=== PATIENT | male | born 1950 | race Caucasian/White ===

== ENCOUNTER → 2024-02-03 07:39 | Outpatient (REF) | payer MEDICARE, OTHER, SELFPAY ==
[2024-02-03 12:36] LABS: ALT (SGPT) 13 U/L (0-50); AST (SGOT) 16 U/L (17-59); Albumin 3.8 g/dl (3.5-5.0); Alkaline Phosphatase 70 U/L (38-126); Blood Urea Nitrogen 16 mg/dl (9-20); Calcium 9.2 mg/dl (8.4-10.2); Carbon Dioxide 34 mmol/L (22-30); Chloride 103 mmol/L (98-107); Glucose 106 mg/dl (70-99); HDL Cholesterol 56 mg/dl; LDL Cholesterol, Calculated 39 mg/dl; Potassium 4.3 mmol/L (3.5-5.1); Sodium 140 mmol/L (135-145); Total Bilirubin 0.9 mg/dl (0.2-1.3); Total Cholesterol 110 mg/dl (50-199); Total Protein 6.3 g/dl (6.3-8.2); Triglyceride 77 mg/dl (10-149); Very Low Density Lipoprotein 15 mg/dl (0-30); eGFR > 60.00
== END ==
LOC: HWLAB 07:39
PROVIDERS: ATTENDING PHYSICIAN Nuclear Medicine Nuclear Cardiology; FAMILY PHYSICIAN Family Medicine; REFERRING PHYSICIAN Internal Medicine Critical Care Medicine
DX: I25.10 Atherosclerotic heart disease of native coronary artery without angina pectoris (principal); E78.2 Mixed hyperlipidemia; R06.09 Other forms of dyspnea
CPT/HCPCS: 36415; 71046; 80053; 80061

== ENCOUNTER 2024-02-27 14:00 | Inpatient (IN) | payer MEDICARE, OTHER, SELFPAY ==
[2024-02-27] VITALS (36 sets, daily range): BP systolic 84–126; BP diastolic 55–108; BMI 31.3; BMI 30.7
--- NOTE | 2024-02-27 10:35 | ED.GENMED ---
History of Present Illness
General
Chief Complaint: Breathing Problem
Source: patient and spouse
Exam Limitations: none
Time Seen by Provider: 02/27/24 10:14
Nursing documentation reviewed up to this point in time: agreed with
Travel History
Have you had any contact with someone who has COVID-19?: No
Do you have any symptoms of coronavirus? Fever > 100 degrees, chills, cough, shortness of breath, sore throat, loss of taste or smell, muscle aches, or headache?: No
History of Present Illness
History of Present Illness:
73-year-old male presents emergency department complaining of shortness of breath and bilateral leg swelling. He has been short of breath for about a month. He has history of pneumonia, COPD, and just came from an echocardiogram.
Past History
Past History
ED Past Medical History: Asthma, COPD, MD and Other (Gastric ulcer, lower GI bleed, melanoma of the right eye, renal insufficiency, Diverticulitis with abscess)
ED Past Surgical History: Cardiac (Stent X1), Orthopedic and Other (Splenectomy)
Social History
Tobacco: Former smoker
Alcohol: Occasional
Drug: None
Personal:
Living: with family
Employment: Employed
Family History
Family History: Other (Noncontributory)
Review of Systems
Review of Systems
Allergies reviewed?: Yes
All Other Systems: Not applicable
Constitutional: Reports no symptoms
EENT: Reports no symptoms
Respiratory: Reports trouble breathing
Cardiac: Reports no symptoms
ABD/GI: Reports no symptoms
: Reports no symptoms
Musculoskeletal: Reports edema
Skin: Reports no symptoms
Neurological: Reports no symptoms
Endocrine: Reports no symptoms
Hematologic/Lymphatic: Reports no symptoms
Psychiatric: Reports no symptoms
Phy Exam
Physical Exam
Physical Exam:
Physical Exam
General: Afebrile
Neck: supple. no meningeal signs. normal posterior pharynx
Heart: s1/s2 regular rate and rhythm, no murmur. equal radial
pulses.
HEENT: Pupils equal round reactive to light, EOMI
Lungs: Moderate respiratory distress. Rales bilaterally
Abdomen: normal bowel sounds. not tender. no CVAT
Neuro: alert and oriented. no focal neurological deficits cranial nerves II through XII intact
Skin: no rash
Psychiatric: well kept. interactive and cooperative
Extremities: Bilateral lower leg edema. no calf tenderness. negative homans. good distal pulses
Scores
Heart Failure Risk
Heart Failure Risk Score: Yes
History of Stroke or TIA: No
History of intubation for respiratory distress: No
Heart rate on ED arrival >/= 110: Yes
SaO2 <90% on arrival on room air: Yes
HR >/=110 during 3min walk test (or too ill to perform test): Yes
ECG has acute ischemic changes: No
Urea >/=12mmol/L (BUN 33.6mg/dL): No
Serum CO2>/=35mmol/L: Yes
Troponin I or T elevated to MD Level (0.4mg/dL): No
NT-proBNP >/=5,000ng/L (5,000pg/ml): No
HF Risk Score: 5
Admission Status: VERY HIGH RISK 39.8% Consider admission to hospital
Course
Orders/Labs/Results
Orders:
Orders
02/27/24 Breakfast
2 Gram Sodium [Sodium, 2 Gram]
At Your Request: Non-Participating
Fluid Restriction: 1800 mL/day (60 oz)
02/27/24 10:30
Cardiac Monitoring- Treatment ONCE
O2 Therapy [RESP] Stat
Nasal Cannula Liter Flow: 1 LPM
Titrate/Wean O2 to maintain O2 sat greater than (%): 92
02/27/24 10:32
Electrocardiogram (*1) Stat
Reason for Study: Other
Other Reason for Exam: pneumonia
EKG- Treatment ONCE
02/27/24 10:33
IV Insert/Care/Rem.- Treatment PRN
US Periph Venous LOWER Ext Victor Hugo Urgent
Comment:
Reason For Exam: bilateral leg swelling
02/27/24 10:53
Complete Blood Count/With Diff Urgent
Comprehensive Metabolic Panel Urgent
Lactic Acid Q4H
Comment: CANCEL 2nd LACTIC ACID IF 1st LACTIC ACID IS LESS THAN 2
NT-proBNP Urgent
Troponin I Urgent
Blood Culture Q30M
LA Source: Blood/Venous
Specimen Description:
02/27/24 11:32
Diltiazem HCl [Cardizem] 10 mg IV NOW STA
Furosemide [Lasix] 40 mg IV NOW STA
02/27/24 11:41
Heparin Protocol- PTT Orders As Directed
PTT per Heparin protocol: -Obtain CBC and baseline PTT - if not already collected.
-Obtain PTT 6 hours from start of infusion. Then, every 6 hours until 2 consecutive
PTT's are therapeutic. Then, PTT Daily.
-With each rate change, obtain PTT every 6 hours until 2 consecutive PTT's are
therapeutic. Then, PTT Daily.
Above order entered?: Yes
Notify MD As Directed
Notify physician if: PTT is greater than or equal to 200.
02/27/24 11:45
Diltiazem 125 mg/125 ml Nss [Cardizem] 125 mg in 125 ml IV PER PROTOCOL
Initial dose in mg/hr, then titrate:: 5
Titrate to keep:: Heart rate 80-100 bpm
Titrate by mg/hr:: 5 mg/hr
Frequency of titrations (minutes):: 15
Maximum dose in mg/hr:: 15
Heparin 53567 Units/250 ml 25,000 units in 250 ml IV PER PROTOCOL
Weight to be used for heparin protocol in kilograms (kg):: 104.5
Protocol:: Cardiac Tx/Acute Coronary
PTT Goal Range to be used:: PTT 73 to 111 seconds
Order type:: Initial
INITIAL Infusion Dose (UNITS/KG/hr) & then follow protocol:: 12 units/kg/hr
Infusion Dose in UNITS/hr & then follow protocol (UNITS/hr):: 1,000
INFUSION RATE in mL/hr & then follow protocol (mL/hr):: 10
PTT less than or equal to 64 seconds:: Increase rate by 200 units/hr (+ 2 mL/hr)
PTT 64.1 to 72.9 seconds:: Increase rate by 100 units/hr (+ 1 mL/hr)
PTT 73 to 111 seconds:: Target Range. No change in rate.
PTT 111.1 to 130.9 seconds:: Decrease rate by 100 units/hr (- 1 mL/hr)
PTT 131 to 199.9 seconds:: HOLD for 1 hr. Then decrease rate by 200 units/hr (- 2 mL/hr)
PTT greater than or equal to 200 seconds:: HOLD for 2 hrs & Notify Provider. Then decrease by 200 units/hr (-
2 mL/hr)
Lab follow-up:: Each change, PTT q6h until 2 consecutive are therapeutic. Then PTT
daily.
02/27/24 11:52
PTT Urgent
Comment: Obtain baseline before beginning heparin infusion if not already collected
Blood Culture Q30M
LA Source: Blood/Venous
Specimen Description:
02/27/24 12:00
Flush (0.9% Sodium Chloride) [Flush (Nss)] See Dose Instructions IV PER PROTOCOL
02/27/24 12:35
CR Chest Portable - 1 View Urgent
Comment:
Reason For Exam: short of breath
Reason Study Needs to be Portable: Patient Unstable
02/27/24 13:00
PHENYLephrine 50 MG/250 ML NSS [Tom-Synephrine] 50 mg in 250 ml IV PER PROTOCOL
Initial dose in mcg/min, then titrate:: 20
Titrate to keep:: SBP > 90 mmHg
Titrate by mcg/min:: 20 mcg/min
Frequency of titrations (minutes):: 5
Maximum dose in ICU in mcg/min:: 200
Maximum dose in IMU in mcg/min:: 80
Begin to taper infusion when:: Remained at goal for 4hrs
Taper by mcg/min:: 20 mcg/min
Frequency of taper (minutes) if patient maintains goal:: 30
Taper to off?: Yes
If infusion off & no longer maintaining goal:: Contact Provider
02/27/24 13:34
Admit/Transfer Patient As Directed
Co-Sign Provider:
Level of Care: Inpatient admission
Assign to:: ICU
Physician / Group: Hospitalist
Diagnosis: Heart failure, rapid afib
Reason for Hospitalization: Heart failure, rapid afib
Expected length of stay greater than two midnights?: Yes
ELOS- Estimated Length of Stay in days: 7
I certify the patient meets the requirements for IP care: Yes
02/27/24 13:36
Code Status As Directed
Resuscitation Status: Full Code
02/27/24 14:45
Lactic Acid Q4H
Comment: CANCEL 2nd LACTIC ACID IF 1st LACTIC ACID IS LESS THAN 2
02/27/24 18:00
PTT Urgent
Comment: Obtain baseline before beginning heparin infusion if not already collected
02/29/24 06:00
Complete Blood Count/No Diff Q2D
Comment: Notify MD if platelet count is <130,000 or decreases by 50% from baseline
03/02/24 06:00
Complete Blood Count/No Diff Q2D
Comment: Notify MD if platelet count is <130,000 or decreases by 50% from baseline
03/04/24 06:00
Complete Blood Count/No Diff Q2D
Comment: Notify MD if platelet count is <130,000 or decreases by 50% from baseline
03/06/24 06:00
Complete Blood Count/No Diff Q2D
Comment: Notify MD if platelet count is <130,000 or decreases by 50% from baseline
03/08/24 06:00
Complete Blood Count/No Diff Q2D
Comment: Notify MD if platelet count is <130,000 or decreases by 50% from baseline
03/10/24 06:00
Complete Blood Count/No Diff Q2D
Comment: Notify MD if platelet count is <130,000 or decreases by 50% from baseline
03/12/24 06:00
Complete Blood Count/No Diff Q2D
Comment: Notify MD if platelet count is <130,000 or decreases by 50% from baseline
03/14/24 06:00
Complete Blood Count/No Diff Q2D
Comment: Notify MD if platelet count is <130,000 or decreases by 50% from baseline
Abnormal Lab Results
02/27/24
10:53
WBC 14.8 H 10^3/uL
(4.8-10.8)
RBC 4.27 L 10^6/uL
(4.70-6.10)
MCV 104.0 H fL
(80.0-94.0)
MCH 33.7 H pg
(27.0-31.0)
MCHC 32.4 L g/dL
(33.0-37.0)
RDW 15.9 H %
(11.5-14.5)
Abs Immat Gran (auto) 0.1 H 10^3/uL
(0-0.05)
Absolute Neuts (auto) 13.6 H 10^3/uL
(1.4-6.5)
Absolute Lymphs (auto) 0.5 L 10^3/uL
(1.2-3.4)
Neutrophils % 91.8 H %
(42.2-75.2)
Lymphocytes % 3.6 L %
(20.5-51.1)
Carbon Dioxide 35 H mmol/L
(22-30)
Glucose 134 H mg/dl
(70-99)
AST 16 L U/L
(17-59)
Total Protein 6.0 L g/dl
(6.3-8.2)
02/27/24 10:53
02/27/24 10:53
Vital Signs
Initial and Last Documented VS:
Initial Vital Signs
Temp Pulse Resp BP Pulse Ox
98.3 F 128 26 100/75 91
02/27/24 09:52 02/27/24 09:52 02/27/24 09:52 02/27/24 09:52 02/27/24 09:52
Last Documented Vital Signs
Temp Pulse Resp BP Pulse Ox
98.3 F 125 28 97/74 91
02/27/24 09:52 02/27/24 14:15 02/27/24 14:15 02/27/24 14:15 02/27/24 14:15
MDM/Problems Addressed
Differential Diagnosis Includes:
DVT, CHF, rapid atrial fibrillation
MDM/Problems Addressed:
73-year-old male with CHF exacerbation, COPD, rapid atrial fibrillation
Chronic conditions affecting care: COPD and Asthma
Acute Exacerbation and/or Progression of Chronic Illness: COPD and Asthma
*Radiology
Radiology exam reviewed: radiology read reviewed (Chest x-ray shows CHF, moderate)
*Pulse Oximetry
Patient hypoxic: yes
*EKG
Interpreted by ED Provider?: Yes
EKG Intrepretation Date: 02/27/24
EKG Intrepretation Time: 10:44
Interpretation: abnormal
Comparison EKG: no comparison EKG present
Heart Rate: 130
Rate: tachycardiac
Rhythm: a-fib
[place]: left axis deviation
Interval: normal interval
QRS Pattern: normal QRS and left vent hypertrophy
Ischemia: no ischemia
*Credit Risk Modeler Interpretation
Rate: tachycardiac
Interpretation: abnormal
Heart Rate: 133
Rhythm: a-fib
*Critical Care Note
Total Time (30-74mins, 75-104mins- exclusive of procedures): 30
comment:
Critical care statement: A total of 30 minutes of critical care time was provided for this patient. This includes management of unstable vital signs, evaluation of the patient at bedside, reviewing the patient's pertinent medical records, discussion
with consultants, review of old EKGs and review of pertinent medical records. This time with separate from time utilized to perform the aforementioned documented procedures
Data Reviewed
Review of Other/Old Records Reveals: Testing (Prior echo showed EF 45 to 50%, today's echo showed EF 25%)
Source: records
Patient Management
Social determinants of health affecting care: Living situation
Discussion with other providers: Hospitalist and Dairy Equipment Installer (Cardiology, Dr. Suarez saw in ED)
Escalation/DeEscalation of care consider admission/obs:
Admit to ICU indicated
ED Attending Note
-
Portions of this chart may have been created with voice recognition software.� Occasional wrong word or��sound alike� substitutions may have occurred due to the inherent limitations of voice recognition software.
Discharge Plan
Departure
Patient Disposition: Admit
Date of Disposition: 02/27/24
Time of Disposition: 12:36
Admit to: ICU
Presentation/result/management discussed w/ accepting MD/DO: Hospitalist
Patient with high blood pressure during this ER visit?: No
Condition: Fair
Discharge Problem:
Atrial fibrillation with RVR, COPD exacerbation, Acute exacerbation of CHF (congestive heart failure)
Interventions
Interventions:
*Risk Screen - Suicide Last Done: 02/27/24 09:52
*General Assessment Last Done: 02/27/24 09:52
*Neglect/Abuse Screening Last Done: 02/27/24 09:52
ED- Fall Risk Assessment Last Done: 02/27/24 10:56
ED- Cardiac Assessment Last Done: 02/27/24 10:56
ED- Pulmonary Assessment Last Done: 02/27/24 13:21
[2024-02-27 11:04] LABS: % Basophils 0.1 % (0-2); % Eosinophils 0.2 % (0-6); % Immature Granulocytes 0.5 % (0-0.5); % Lymphocytes 3.6 % (20.5-51.1); % Monocytes 3.8 % (1.7-9.3); % Neutrophils 91.8 % (42.2-75.2); Absolute Immature Granulocytes 0.1 10^3/uL (0-0.05); Absolute Lymphocytes 0.5 10^3/uL (1.2-3.4); Absolute Monocytes 0.6 10^3/uL (0.1-0.6); Absolute Neutrophils 13.6 10^3/uL (1.4-6.5); Hematocrit 44.4 % (39.0-52.0); Hemoglobin 14.4 g/dL (13.0-18.0); Mean Corp Hgb Conc. 32.4 g/dL (33.0-37.0); Mean Corpuscular Hgb 33.7 pg (27.0-31.0); Mean Platelet Volume 9.5 fL (7.4-10.4); Nucleated Red Blood Cells % 0 % (-); Platelet Count 273 10^3/uL (130-400); Red Blood Cell Count 4.27 10^6/uL (4.70-6.10); Red Cell Dist. Width 15.9 % (11.5-14.5); White Blood Cell Count 14.8 10^3/uL (4.8-10.8)
[2024-02-27 11:16] LABS: Lactic Acid 1.4 mmol/L (0.7-2.0)
[2024-02-27 11:17] LABS: ALT (SGPT) 16 U/L (0-50); AST (SGOT) 16 U/L (17-59); Albumin 3.7 g/dl (3.5-5.0); Alkaline Phosphatase 63 U/L (38-126); Blood Urea Nitrogen 20 mg/dl (9-20); Calcium 9.2 mg/dl (8.4-10.2); Carbon Dioxide 35 mmol/L (22-30); Chloride 102 mmol/L (98-107); Estimated Creatinine Clearance 106 ml/min; Glucose 134 mg/dl (70-99); Potassium 4.7 mmol/L (3.5-5.1); Sodium 142 mmol/L (135-145); Total Bilirubin 1.2 mg/dl (0.2-1.3); eGFR > 60.00
[2024-02-27 11:29] LABS: NT-proBNP 994 pg/ml; Troponin I < 0.012 ng/ml
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
[2024-02-27] MEDS: CARDIZEM 5 MG IV (11:43)
[2024-02-27] MEDS: HEPARIN 25000 UNITS/250 ML IV (12:00)
[2024-02-27 12:10] LABS: APTT 32.7 Sec (23.4-35.0)
[2024-02-27] MEDS: CARDIZEM 125 IV (13:05)
[2024-02-27] MEDS: NEO-SYNEPHRINE 250 IV (13:07)
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
[2024-02-27] MEDS: LASIX 40 MG IV (13:24)
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
[2024-02-27 18:53] LABS: INR 1.07; PT 13.7 Sec (11.4-14.6)
[2024-02-27 18:54] LABS: APTT 48.1 Sec (23.4-35.0)
[2024-02-27 19:10] LABS: Troponin I < 0.012 ng/ml
[2024-02-27] MEDS: COREG 3.125 MG PO (19:21)
[2024-02-27] MEDS: VIBRAMYCIN 100 MG PO (19:21)
[2024-02-27] MEDS: SYMBICORT 80/4.5 MCG INHALER 2 PUFF INH (19:45)
--- NOTE | 2024-02-27 20:00 | PTCARENOTE ---
Received patient at 1900. Pt. currently in bed. Awake, alert, and oriented. Denies pain/discomfort. Afebrile. Pt. in Afib rhythm. Cardizem, Heparin, and Neosynephrine drips infusing per orders. Heart rate currently 92. Pt. is on 3L nasal cannula.
Lungs sound diminished. Crackles at bases. Pt. has a PO diet order, good appetite. Voiding in urinal without issue. Skin as documented. Discussed plan of care with patient. Vital signs stable at this time.
[2024-02-27] MEDS: PACERONE 400 MG PO (21:02)
[2024-02-27] MEDS: SOLU-MEDROL PF 40 MG IV (23:35)
--- NOTE | 2024-02-27 23:55 | PTCARENOTE ---
Pt. assessment unchanged. Remains on cardizem, heparin, and neosynephrine infusions. Will repeat PTT assessment per protocol. Vital signs stable at this time.
[2024-02-28] VITALS (71 sets, daily range): BP systolic 80–118; BP diastolic 56–87; BMI 30.3
[2024-02-28] MEDS: CARDIZEM 125 IV (00:51)
[2024-02-28 01:25] LABS: APTT 63.7 Sec (23.4-35.0)
--- NOTE | 2024-02-28 04:00 | PTCARENOTE ---
Pt. assessment remains unchanged. AM labs drawn. Vital signs stable at this time.
[2024-02-28 04:04] LABS: Venous Blood Gas B.E. 7.1 mmol/L (-4 to +4); Venous Blood Gas HCO3 33.1 mmol/L (22-27); Venous Blood Gas O2 Sat % 99.5 %; Venous Blood Gas pCO2 51 mmHg (35-48); Venous Blood Gas pH 7.42 (7.32-7.43); Venous Blood Gas pO2 209 mmHg (30-50)
[2024-02-28 04:06] LABS: Hematocrit 39.7 % (39.0-52.0); Hemoglobin 13.4 g/dL (13.0-18.0); Mean Corp Hgb Conc. 33.8 g/dL (33.0-37.0); Mean Corpuscular Hgb 33.8 pg (27.0-31.0); Mean Platelet Volume 9.8 fL (7.4-10.4); Platelet Count 271 10^3/uL (130-400); Red Blood Cell Count 3.97 10^6/uL (4.70-6.10); Red Cell Dist. Width 15.8 % (11.5-14.5); White Blood Cell Count 13.9 10^3/uL (4.8-10.8)
[2024-02-28 04:07] LABS: Venous Blood Gas O2 Therapy 3L/min
[2024-02-28 04:34] LABS: Blood Urea Nitrogen 23 mg/dl (9-20); Calcium 8.5 mg/dl (8.4-10.2); Carbon Dioxide 35 mmol/L (22-30); Chloride 101 mmol/L (98-107); Estimated Creatinine Clearance 105 ml/min; Glucose 153 mg/dl (70-99); Magnesium 1.8 mg/dl (1.6-2.3); Phosphorus 3.3 mg/dl (2.5-4.5); Potassium 4.5 mmol/L (3.5-5.1); Sodium 140 mmol/L (135-145); eGFR > 60.00
[2024-02-28] MEDS: LIPITOR 40 MG PO (07:48)
[2024-02-28] MEDS: VIBRAMYCIN 100 MG PO ×2 (07:48→20:04)
[2024-02-28] MEDS: PACERONE 400 MG PO ×3 (07:48→20:05)
[2024-02-28] MEDS: CLARITIN 10 MG PO (07:49)
[2024-02-28] MEDS: PROTONIX 40 MG PO (07:49)
[2024-02-28] MEDS: COREG 3.125 MG PO ×2 (07:49→20:44)
[2024-02-28] MEDS: LASIX 40 MG IV (07:49)
[2024-02-28] MEDS: ASPIR LOW (ENTERIC COATED) 81 MG PO (07:49)
[2024-02-28] MEDS: DALIRESP 500 MCG PO (07:49)
[2024-02-28] MEDS: SOLU-MEDROL PF 40 MG IV ×3 (07:50→23:07)
[2024-02-28] MEDS: SPIRIVA RESPIMAT 2.5 MCG 2 PUFF INH (07:57)
[2024-02-28] MEDS: SYMBICORT 80/4.5 MCG INHALER 2 PUFF INH ×2 (07:57→20:29)
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
[2024-02-28 08:20] LABS: APTT 82.3 Sec (23.4-35.0)
--- NOTE | 2024-02-28 08:21 | PTCARENOTE ---
report received, assessments per work list. patient denies pain, alert and oriented. verbalizes displeasure with fluid restrictions and dietary restrictions ordered. reviewed rationale of both, patient states 'I'm going to negotiate that with the
doctor'. refuses to order breakfast, 'I won't like anything'. spouse is at bedside, she was also instructed on importance of fluid restriction. monitor afib with frequent pvc, cardizem, heparin and dipak per work list. lungs with coarse breath sounds,
crackles and inspiratory, expiratory wheezes throughout. tachypneic but denies dyspnea. pulse oximeter 89-91 on 6 liters. call hernandez in reach
[2024-02-28] MEDS: HEPARIN 25000 UNITS/250 ML IV (08:40)
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
[2024-02-28] MEDS: CARDIZEM CD 120 MG PO (10:11)
[2024-02-28] MEDS: LOVENOX 100 MG SC ×2 (10:16→20:04)
[2024-02-28] MEDS: NEO-SYNEPHRINE 250 IV (13:08)
--- NOTE | 2024-02-28 16:11 | PTCARENOTE ---
reassessed@1200 and 1600. lungs with coarse breath sounds,crackles and wheezing. oxygen@6 liters continues. non productive cough. remains out of bed in chair since 0900. good appetite for dinner. remains with dipak@30mcq. did not tolerate wean of dipak.
call hernandez in reach. compliant with fluid restriction
[2024-02-28] MEDS: ProAmatine 10 MG PO (16:47)
--- NOTE | 2024-02-28 20:00 | PTCARENOTE ---
rec`d pt at 1900 OOB to chair. AAOx3. afib on monitor. 40 of lasixs given today during day shift. +2 edema bilateral lower legs. MARIBELL going at 30mcgs. rt AC 18- MARIBELL running. 22 rt hand capped. HR between 90s-100s. 6L NC satting 94%. coarse crackles
bilaterally. pt uses urinal, darian in color. pt refuses SCDs. pt 1x assist. call hernandez in reach, safe environment maintained.
[2024-02-29] VITALS (25 sets, daily range): BP systolic 90–123; BP diastolic 55–85; BMI 31.0
--- NOTE | 2024-02-29 | PTCARENOTE ---
pt reassessed. no changes in pt assessment. call hernandez in reach.
[2024-02-29 04:04] LABS: Hematocrit 41.3 % (39.0-52.0); Hemoglobin 13.8 g/dL (13.0-18.0); Mean Corp Hgb Conc. 33.4 g/dL (33.0-37.0); Mean Corpuscular Hgb 34.8 pg (27.0-31.0); Mean Platelet Volume 9.8 fL (7.4-10.4); Platelet Count 282 10^3/uL (130-400); Red Blood Cell Count 3.97 10^6/uL (4.70-6.10); Red Cell Dist. Width 15.5 % (11.5-14.5); White Blood Cell Count 13.4 10^3/uL (4.8-10.8)
--- NOTE | 2024-02-29 04:44 | PTCARENOTE ---
pt reassessed. no changes in pt assessment. call hernandez in reach.
[2024-02-29 05:01] LABS: ALT (SGPT) 14 U/L (0-50); AST (SGOT) 16 U/L (17-59); Albumin 3.8 g/dl (3.5-5.0); Alkaline Phosphatase 54 U/L (38-126); Blood Urea Nitrogen 35 mg/dl (9-20); Calcium 8.9 mg/dl (8.4-10.2); Carbon Dioxide 29 mmol/L (22-30); Chloride 99 mmol/L (98-107); Estimated Creatinine Clearance 83 ml/min; Glucose 149 mg/dl (70-99); Magnesium 1.9 mg/dl (1.6-2.3); Potassium 4.8 mmol/L (3.5-5.1); Sodium 138 mmol/L (135-145); Total Bilirubin 1.1 mg/dl (0.2-1.3); Total Protein 6.1 g/dl (6.3-8.2); eGFR > 60.00
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
[2024-02-29] MEDS: SPIRIVA RESPIMAT 2.5 MCG 2 PUFF INH (07:38)
[2024-02-29] MEDS: SYMBICORT 80/4.5 MCG INHALER 2 PUFF INH ×2 (07:38→19:50)
[2024-02-29] MEDS: ASPIR LOW (ENTERIC COATED) 81 MG PO (07:43)
[2024-02-29] MEDS: DALIRESP 500 MCG PO (07:44)
[2024-02-29] MEDS: COREG 3.125 MG PO ×2 (07:44→19:56)
[2024-02-29] MEDS: LASIX 40 MG IV (07:45)
[2024-02-29] MEDS: CARDIZEM CD 120 MG PO (07:46)
[2024-02-29] MEDS: PACERONE 400 MG PO ×3 (07:46→20:03)
[2024-02-29] MEDS: LIPITOR 40 MG PO (07:46)
[2024-02-29] MEDS: PROTONIX 40 MG PO (07:47)
[2024-02-29] MEDS: SOLU-MEDROL PF 40 MG IV ×2 (07:47→19:56)
[2024-02-29] MEDS: ProAmatine 10 MG PO ×3 (07:47→18:17)
[2024-02-29] MEDS: VIBRAMYCIN 100 MG PO ×2 (07:48→19:56)
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
--- NOTE | 2024-02-29 09:08 | PTCARENOTE ---
Complete assessment done and documented. Pt AA+O, GARZA. HR afib 97-104, pt on dipak drip at 20 mcg/min, titrating, keeping sys BP =/ or above 90. +3 edema noted on lower exts bilat. Pt on 5l NC, O2 sat=97%, Lobes with scattered rhonchi, sl crackles,
and exp wheezes noted. Abd obese, +BSs, eating breakfast now, low na, 1800 ADA diet. Pt voiding mod amt dk darian urine in urinal at bedside. Pt to be NPO for breakfast tomorrow, for scheduled SHRUTHI and cardioversion in am tomorrow. Pt's at
bedside and updated.
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
--- NOTE | 2024-02-29 19:38 | PTCARENOTE ---
rec`d pt at 1900, AAOx3, very pleasant. afib on monitor. +2 edema bilateral lower legs. afebrile. MARIBELL going at 20mcgs. rt AC 18 and 22 rt hand. HR 70s-80s. 5L NC satting 95%. coarse crackles bilaterally. moist, non productive cough. sodium
restricted diet. pt uses urinal, darian to yellow in color. pt 1x assist. call hernandez in reach, safe environment maintained.
[2024-02-29] MEDS: ELIQUIS 5 MG PO (19:56)
[2024-03-01] VITALS (16 sets, daily range): BP systolic 93–121; BP diastolic 56–84; BMI 30.9
--- NOTE | 2024-03-01 | PTCARENOTE ---
pt reassessed. no changes in pt assessment. pt educated to be NPO per MD orders, for an upcoming procedure today. call hernandez in reach.
[2024-03-01 03:03] LABS: Hematocrit 38.8 % (39.0-52.0); Hemoglobin 13.3 g/dL (13.0-18.0); Mean Corp Hgb Conc. 34.3 g/dL (33.0-37.0); Mean Corpuscular Volume 99.2 fL (80.0-94.0); Mean Platelet Volume 9.5 fL (7.4-10.4); Platelet Count 287 10^3/uL (130-400); Red Blood Cell Count 3.91 10^6/uL (4.70-6.10); Red Cell Dist. Width 15.3 % (11.5-14.5); White Blood Cell Count 18.1 10^3/uL (4.8-10.8)
[2024-03-01 03:19] LABS: Blood Urea Nitrogen 42 mg/dl (9-20); Calcium 8.6 mg/dl (8.4-10.2); Carbon Dioxide 35 mmol/L (22-30); Chloride 98 mmol/L (98-107); Estimated Creatinine Clearance 77 ml/min; Glucose 161 mg/dl (70-99); Magnesium 1.9 mg/dl (1.6-2.3); Phosphorus 4.3 mg/dl (2.5-4.5); Potassium 4.6 mmol/L (3.5-5.1); Sodium 138 mmol/L (135-145); eGFR > 60.00
--- NOTE | 2024-03-01 04:00 | PTCARENOTE ---
pt reassessed. no changes in pt assessment. call hernandez in reach..
[2024-03-01] MEDS: SYMBICORT 80/4.5 MCG INHALER 2 PUFF INH (07:17)
[2024-03-01] MEDS: SPIRIVA RESPIMAT 2.5 MCG 2 PUFF INH (07:17)
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
[2024-03-01] MEDS: SOLU-MEDROL PF 40 MG IV (07:45)
[2024-03-01] MEDS: PROTONIX 40 MG PO (07:46)
[2024-03-01] MEDS: VIBRAMYCIN 100 MG PO (07:46)
[2024-03-01] MEDS: COREG 3.125 MG PO ×2 (07:46→10:53)
[2024-03-01] MEDS: LIPITOR 40 MG PO (07:46)
[2024-03-01] MEDS: PACERONE 400 MG PO ×2 (07:46→16:00)
[2024-03-01] MEDS: ProAmatine 10 MG PO ×3 (07:47→16:55)
[2024-03-01] MEDS: CLARITIN 10 MG PO (07:47)
[2024-03-01] MEDS: ASPIR LOW (ENTERIC COATED) 81 MG PO (07:47)
[2024-03-01] MEDS: DALIRESP 500 MCG PO (07:47)
[2024-03-01] MEDS: ELIQUIS 5 MG PO ×2 (07:47→16:56)
[2024-03-01] MEDS: CARDIZEM CD 120 MG PO (07:47)
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
[2024-03-01] MEDS: LASIX 40 MG IV (09:53)
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
--- NOTE | 2024-03-01 10:17 | PTCARENOTE ---
Pt returned from [facility] after failing to have cardioversion d/t pt not wanting to be intubated for procedure. Upon return to room pt stating he wants to leave. Dr Snowu in to see pt and after consullts weigh in will discharge later today. Pt and
given heart failure booklet, attempted to review information, but pt wasn't listening. Packet left with and patient. Pt refusing to eat because there is nothing that 'tastes good.' Otherwise no changes.
--- NOTE | 2024-03-01 14:01 | CM ---
CM following re: discharge planning.
Reviewed pt' chart, met with pt.
Pt is a 73 year old male, admitted with primary dx of Acute decompensated heart failure/acute HFrEF in setting of A-fib with RVR.
Pt reports he lives with spouse and a grandson in a 2SH, 2 steps to enter. 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 pt stated he had a portable tank, did not use it and asked DME company to take away his oxygen tank. Pt
stated he does not know the name of Oxygen DME company but his spouse knows. Pt was very unhappy to participate in the interview, expressed to me his alleged unhappiness and he stated he will go home today.
According to RN pt needs a portable oxygen tank to go home.
DORIE spoke to pt's spouse and she stated that pt's DME is [employer]. pt's spouse stated she will come to the hospital top bring her home today.
DORIE called [facility] liaison, spoke to field marketing representative [employer] and he stated that pt's oxygen order was for nocturnal only and if pt's needs a regular order then a script with ambulatory pulse ox and pt's clinical required. [employer] field marketing representative Uz[employer] stated
that a portable oxygen tank will be delivered to pt's room by 4:00 p.m.
DORIE placed an order for home Oxygen with [employer].
D/C plan: home when portable oxygen is delivered to pt's room. Spouse to transport.
[2024-03-01] MEDS: DELTASONE 40 MG PO (14:04)
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
[2024-03-01] MEDS: COREG 6.25 MG PO (16:55)
--- NOTE | 2024-03-01 18:06 | PTCARENOTE ---
pt being discharged on home oxygen, tank was delivered shortly before 5pm. discharge instructions reviewed with pt and , aware of scheduled appointments and not to take any medications until am. dr mcleod contacted given order to continue
akikoaalesly on discharge, order clarified and discontinued. pt and aware. all evening meds given prior to discharge per dr mcleod. [facility] called at request to confirm they had subscriptions given [facility] was not showing all new
prescriptions. they confirmed upon call. no questions at time of discharge.
== END 2024-03-01 18:00 | disposition home or self-care (01) | DRG 291 ==
LOC: ICU 14:00
PROVIDERS: Hospitalist; Physician Assistant Medical; ADMITTING PHYSICIAN Internal Medicine; ATTENDING PHYSICIAN Internal Medicine; CONSULT PHYSICIAN Internal Medicine Cardiovascular Disease; CONSULT PHYSICIAN Internal Medicine Critical Care Medicine; EMERGENCY PHYSICIAN Emergency Medicine; FAMILY PHYSICIAN Family Medicine
PROC: 3E0DXRZ Introduction of Antiarrhythmic into Mouth and Pharynx, External Approach (ICD-10-PCS; 2024-02-27)
DX: I11.0 Hypertensive heart disease with heart failure (principal); I50.21 Acute systolic (congestive) heart failure; J96.21 Acute and chronic respiratory failure with hypoxia; R57.0 Cardiogenic shock; I48.19 Other persistent atrial fibrillation; E78.00 Pure hypercholesterolemia, unspecified; I25.10 Atherosclerotic heart disease of native coronary artery without angina pectoris; R74.01 Elevation of levels of liver transaminase levels; E66.9 Obesity, unspecified; K21.9 Gastro-esophageal reflux disease without esophagitis; I35.0 Nonrheumatic aortic (valve) stenosis; J43.2 Centrilobular emphysema; R68.3 Clubbing of fingers; I95.9 Hypotension, unspecified; I49.3 Ventricular premature depolarization; I25.5 Ischemic cardiomyopathy; J98.4 Other disorders of lung; M19.90 Unspecified osteoarthritis, unspecified site; R91.1 Solitary pulmonary nodule; Z96.652 Presence of left artificial knee joint; Z53.20 Procedure and treatment not carried out because of patient's decision for unspecified reasons; Z77.22 Contact with and (suspected) exposure to environmental tobacco smoke (acute) (chronic); I25.2 Old myocardial infarction; Z87.01 Personal history of pneumonia (recurrent); Z87.19 Personal history of other diseases of the digestive system; Z90.81 Acquired absence of spleen; Z86.16 Personal history of COVID-19; Z95.5 Presence of coronary angioplasty implant and graft; Z87.891 Personal history of nicotine dependence; Z85.840 Personal history of malignant neoplasm of eye; V29.99XS Rider (driver) (passenger) of other motorcycle injured in unspecified traffic accident, sequela; Z79.82 Long term (current) use of aspirin; Z68.31 Body mass index [BMI] 31.0-31.9, adult; Z80.8 Family history of malignant neoplasm of other organs or systems; Z99.81 Dependence on supplemental oxygen; Z87.11 Personal history of peptic ulcer disease
CPT/HCPCS: 71045; 80048; 80053; 82805; 83605; 83735; 83880; 84100; 84484; 85025; 85027; 85610; 85730; 87040; 93005; 93306; 93970; 94640; 96365; 96366; 96367; 96375; 99291

== ENCOUNTER → 2024-03-08 10:25 | Outpatient (REF) | payer MEDICARE, OTHER, SELFPAY ==
[2024-03-08 12:07] LABS: % Basophils 0.3 % (0-2); % Eosinophils 0.6 % (0-6); % Immature Granulocytes 0.9 % (0-0.5); % Lymphocytes 6.4 % (20.5-51.1); % Neutrophils 86.8 % (42.2-75.2); Absolute Basophils 0.1 10^3/uL (0-0.2); Absolute Eosinophils 0.1 10^3/uL (0-0.7); Absolute Immature Granulocytes 0.2 10^3/uL (0-0.05); Absolute Lymphocytes 1.2 10^3/uL (1.2-3.4); Absolute Neutrophils 16.5 10^3/uL (1.4-6.5); Hematocrit 45.3 % (39.0-52.0); Mean Corp Hgb Conc. 33.1 g/dL (33.0-37.0); Mean Corpuscular Hgb 33.5 pg (27.0-31.0); Mean Corpuscular Volume 101.1 fL (80.0-94.0); Mean Platelet Volume 9.9 fL (7.4-10.4); Nucleated Red Blood Cells % 0 % (-); Platelet Count 331 10^3/uL (130-400); Red Blood Cell Count 4.48 10^6/uL (4.70-6.10); Red Cell Dist. Width 15.4 % (11.5-14.5)
[2024-03-08 13:11] LABS: Blood Urea Nitrogen 31 mg/dl (9-20); Calcium 9.4 mg/dl (8.4-10.2); Carbon Dioxide 35 mmol/L (22-30); Chloride 93 mmol/L (98-107); Glucose 157 mg/dl (70-99); Potassium 3.6 mmol/L (3.5-5.1); Sodium 137 mmol/L (135-145); eGFR > 60.00
== END ==
LOC: HWLAB 10:25
PROVIDERS: ATTENDING PHYSICIAN Internal Medicine Interventional Cardiology; FAMILY PHYSICIAN Family Medicine
DX: I42.9 Cardiomyopathy, unspecified (principal)
CPT/HCPCS: 36415; 80048; 85025

== ENCOUNTER 2024-04-15 07:06 | Day surgery (SDC) | payer MEDICARE, OTHER, SELFPAY ==
--- NOTE | 2024-04-15 09:03 | ITS.CL.CARDI ---
Railroad Design Consultant - Cardioversion
Cardioversion
Procedure Report:
Cardioversion Report:
Date of Procedure: 04/15/2024
Procedure: Cardioversion
Indication: Symptomatic atrial fibrillation
Performing Physician: Navneet Cyr MD
Technique: The patient was brought to the holding area. Signed informed consent was obtained. A time out was called and performed. The patient was anesthetized by the anesthesia service. Anticoagulation status was reviewed and appropriate. R2 pads
were placed anteriorly and posteriorly. A200 J synchronized biphasic shock restored normal sinus rhythm without significant bradycardia. There were no complications.
Conclusion: Uncomplicated cardioversion from atrial fibrillation to sinus rhythm.
Recommendation: Routine post cardioversion care. Continue fpc anticoagulation.
== END 2024-04-15 08:49 | disposition home or self-care (01) ==
LOC: CATH 07:06
PROVIDERS: ATTENDING PHYSICIAN Internal Medicine Cardiovascular Disease; FAMILY PHYSICIAN Family Medicine; OTHER PHYSICIAN Nuclear Medicine Nuclear Cardiology
DX: I48.0 Paroxysmal atrial fibrillation (principal); I25.10 Atherosclerotic heart disease of native coronary artery without angina pectoris; I35.0 Nonrheumatic aortic (valve) stenosis; I10 Essential (primary) hypertension; E78.5 Hyperlipidemia, unspecified; K21.9 Gastro-esophageal reflux disease without esophagitis; Z87.891 Personal history of nicotine dependence; Z79.82 Long term (current) use of aspirin; Z79.01 Long term (current) use of anticoagulants
CPT/HCPCS: 92960; 93005

== ENCOUNTER → 2024-05-26 10:14 | Outpatient (REF) | payer MEDICARE, OTHER, SELFPAY | LOC: HWRCS 10:14 | PROVIDERS: ATTENDING PHYSICIAN Nurse Practitioner; FAMILY PHYSICIAN Family Medicine | DX: I48.19 Other persistent atrial fibrillation (principal); I42.9 Cardiomyopathy, unspecified; R06.02 Shortness of breath | CPT/HCPCS: 93306 ==

== ENCOUNTER → 2024-08-25 09:27 | Outpatient (REF) | payer MEDICARE, OTHER, SELFPAY | LOC: HWRAD 09:27 | PROVIDERS: ATTENDING PHYSICIAN Internal Medicine Critical Care Medicine; FAMILY PHYSICIAN Family Medicine | DX: Z87.891 Personal history of nicotine dependence (principal) | CPT/HCPCS: 71271 ==

== ENCOUNTER → 2024-10-13 10:37 | Outpatient (REF) | payer MEDICARE, OTHER, SELFPAY ==
[2024-10-13 13:31] LABS: TSH 0.73 uIU/ml (0.47-4.68)
== END ==
LOC: HWLAB 10:37
PROVIDERS: ATTENDING PHYSICIAN Nuclear Medicine Nuclear Cardiology; FAMILY PHYSICIAN Family Medicine; REFERRING PHYSICIAN Internal Medicine Critical Care Medicine
DX: R06.02 Shortness of breath (principal); E78.2 Mixed hyperlipidemia
CPT/HCPCS: 36415; 84443

== ENCOUNTER 2024-10-16 12:48 | Inpatient (IN) | payer MEDICARE, OTHER, SELFPAY ==
[2024-10-16] VITALS (58 sets, daily range): BP systolic 57–154; BP diastolic 30–124; BMI 29.0; BMI 28.5
[2024-10-16] MEDS: NSS 1000 IV ×2 (12:16→14:53)
[2024-10-16 12:19] LABS: % Basophils 0.1 % (0-2); % Eosinophils 0.6 % (0-6); % Immature Granulocytes 1.5 % (0-0.5); % Lymphocytes 12.6 % (20.5-51.1); % Monocytes 8.6 % (1.7-9.3); % Neutrophils 76.6 % (42.2-75.2); Absolute Eosinophils 0.1 10^3/uL (0-0.7); Absolute Immature Granulocytes 0.3 10^3/uL (0-0.05); Absolute Lymphocytes 2.6 10^3/uL (1.2-3.4); Absolute Monocytes 1.7 10^3/uL (0.1-0.6); Absolute Neutrophils 15.5 10^3/uL (1.4-6.5); Hematocrit 12.9 % (39.0-52.0); Mean Corpuscular Hgb 32.3 pg (27.0-31.0); Nucleated Red Blood Cells % 0.4 % (-); Platelet Count 289 10^3/uL (130-400); Red Blood Cell Count 1.24 10^6/uL (4.70-6.10); Red Cell Dist. Width 16.5 % (11.5-14.5); White Blood Cell Count 20.2 10^3/uL (4.8-10.8)
[2024-10-16 12:23] LABS: INR 1.59; PT 19.2 Sec (11.4-14.6)
[2024-10-16 12:24] LABS: APTT 35.6 Sec (23.4-35.0)
--- NOTE | 2024-10-16 12:24 | ED.GENMED ---
History of Present Illness
General
Chief Complaint: Breathing Problem
Source: patient and spouse
Time Seen by Provider: 10/16/24 12:09
History of Present Illness
History of Present Illness:
74-year-old male presenting to the ER for evaluation of 4 days of gradually worsening fatigue, shortness of breath, weakness, near syncope and dark stools. Symptoms appeared worse today. states that patient usually uses 2 L of oxygen at
nighttime for sleep only due to his COPD but over the last few days has needed this continuously. also reports patient looks very pale. Patient brought immediately back to the ER from triage due to profound hypotension, hypoxia and current
clinical status
Past History
Past History
ED Past Medical History: Asthma, CAD, CHF, COPD, [place] and Other (Gastric ulcer, lower GI bleed, melanoma of the right eye, renal insufficiency, Diverticulitis with abscess)
ED Past Surgical History: Cardiac (Stent X1), Orthopedic and Other (Splenectomy)
Social History
Tobacco: Former smoker
Alcohol: Occasional
Drug: None
Personal:
Living: with family
Employment: Employed
Family History
Family History: Other (Noncontributory)
Review of Systems
Review of Systems
All Other Systems: ROS reviewed and negative except as documented in HPI and ROS
Phy Exam
Physical Exam
Physical Exam:
GENERAL: Alert , in no apparent distress, very pale, ill-appearing, increased respiratory rate
HEAD: NCAT
EYE: clear conjunctiva
NECK: Supple
ENT: o/p clr, mmm.
CARDIAC: Regular rate and rhythm .
LUNGS: Clear breath sounds bilaterally, no acute respiratory distress, no wheezes/rales/rhonchi
ABDOMEN: Soft, without focal tenderness, no r/g, no cvat
RECTAL EXAM: black stool, heme pos
NEUROLOGICAL: Alert and oriented
SKIN: Warm and dry, skin intact.
MUSCULOSKELETAL: No edema, well perfused.
PSYCH: Normal and appropriate interaction.
Scores
Heart Failure Risk
Heart Failure Risk Score: Not Applicable
Heart Score for Chest Pain Patients
STEMI patient?: Not applicable
Withdrawal Assessment of Alcohol
Withdrawal Assessment Completed?: Not applicable
Course
Orders/Labs/Results
Orders:
Orders
10/16/24 12:05
Electrocardiogram (*1) Urgent
Reason for Study: Chest Pain
EKG- Treatment ONCE
10/16/24 12:06
Type And Crossmatch [Type+Screen] Urgent
Complete Blood Count/With Diff Urgent
Comprehensive Metabolic Panel Urgent
Ferritin Urgent
Comment: ADD ON
Folate Urgent
Comment: ADD ON
Iron Urgent
Comment: ADD ON
PT/INR [Prothrombin Time] Urgent
PTT Urgent
Total Iron Binding Urgent
Comment: ADD ON
Troponin I Urgent
Vitamin B12 Urgent
Comment: ADD ON
10/16/24 12:15
0.9% Sodium Chloride 1000 ml [Nss] 1,000 ml IV BOLUS
10/16/24 12:21
Blood Bank Products [* Blood Bank Products] Stat
Blood Bank Products: *Packed RBC Leuko(PRBC's)
Quantity: 3
Transfuse Today: Yes
Reason: Bleeding
10/16/24 12:29
Pantoprazole [Protonix IV] 80 mg IV NOW STA
Prothrombin Complex(Pcc),Human [Kcentra] 2,519 unit Empty Viaflex Container 100 ml [Viaflex Empty Container] 100 ml IV NOW
Does patient have a dx of serious acute active bleeding?: Yes
Does patient have prior history of HIT?: No
10/16/24 12:30
Pantoprazole 80 mg/100 ml Nss [Protonix] 80 mg in 100 ml IV Q10H
10/16/24 12:37
Admit/Transfer Patient As Directed
Co-Sign Provider:
Level of Care: Inpatient admission
Assign to:: ICU
Physician / Group: teresa
Diagnosis: UGIB
Reason for Hospitalization: UGIB
Expected length of stay greater than two midnights?: Yes
ELOS- Estimated Length of Stay in days: 2
I certify the patient meets the requirements for IP care: Yes
PRN Pain Medication Management As Directed
May give lesser potent ordered pain med per pt: Yes
preference::
Protocol:: Medication orders for pain may be administered in a
manner that supports deferring to patient preference
when the pt is:
- Requesting an ordered lesser potent pain medication.
Least to most potent pain medications are defined
as: acetaminophen < NSAID < tramadol < opioids
(morphine, oxycodone, hydromorphone).
- Requesting a lesser dose of the same medication IF
ORDERED.
- Requesting a less intrusive route of administration
if both routes are prescribed by the provider (PO <
IV).
10/16/24 12:38
Code Status As Directed
Resuscitation Status: Full Code
10/16/24 14:16
GASTROINTESTINAL CONSULT Routine
Consulting Provider: Azul Saxena
Was physician already notified: Yes
Activity As Directed
Activity Level: As Tolerated
Orthostatic Vital Signs As Directed
Orthostatic VS Frequency: Now
Comment: then every four hours for twenty-four hours
Pneumatic Compression Sleeves As Directed
Type: Knee high
Vital Signs As Directed
Frequency: Per unit guidelines
DX Deep Vein Thrombosis Video Routine
10/16/24 14:30
0.9% Sodium Chloride 1000 ml [Nss] 1,000 ml IV 100 mls/hr
10/16/24 Dinner
NPO
Allow oral meds: Yes
Allow clear liquids: No
10/16/24 22:40
Pantoprazole 80 mg/100 ml Nss [Protonix] 80 mg in 100 ml IV Q10H
10/17/24 06:00
Complete Blood Count/With Diff IN AM
Comprehensive Metabolic Panel IN AM
Abnormal Lab Results
10/16/24
12:06
WBC 20.2 H 10^3/uL
(4.8-10.8)
RBC 1.24 L 10^6/uL
(4.70-6.10)
Hgb 4.0 L* g/dL
(13.0-18.0)
Hct 12.9 L* %
(39.0-52.0)
MCV 104.0 H fL
(80.0-94.0)
MCH 32.3 H pg
(27.0-31.0)
MCHC 31.0 L g/dL
(33.0-37.0)
RDW 16.5 H %
(11.5-14.5)
Abs Immat Gran (auto) 0.3 H 10^3/uL
(0-0.05)
Absolute Neuts (auto) 15.5 H 10^3/uL
(1.4-6.5)
Absolute Monos (auto) 1.7 H 10^3/uL
(0.1-0.6)
Immature Gran % 1.5 H %
(0-0.5)
Neutrophils % 76.6 H %
(42.2-75.2)
Lymphocytes % 12.6 L %
(20.5-51.1)
PT 19.2 H Sec
(11.4-14.6)
APTT 35.6 H Sec
(23.4-35.0)
BUN 58 H mg/dl
(9-20)
Creatinine 1.5 H mg/dL
(0.7-1.3)
Glucose 135 H mg/dl
(70-99)
Calcium 8.2 L mg/dl
(8.4-10.2)
Iron 46 L ug/dl
(49-181)
% Saturation 11 L %
(20-50)
Ferritin 9.7 L ng/ml
(17.9-464.0)
Total Protein 5.2 L g/dl
(6.3-8.2)
Albumin 3.1 L g/dl
(3.5-5.0)
Crossmatch IS Only See Detail
10/16/24 12:06
10/16/24 12:06
Vital Signs
Initial and Last Documented VS:
Initial Vital Signs
Temp Pulse Resp BP Pulse Ox
98.5 F 79 18 57/39 98
10/16/24 11:53 10/16/24 11:53 10/16/24 11:53 10/16/24 11:53 10/16/24 11:53
Last Documented Vital Signs
Temp Pulse Resp BP Pulse Ox
97.8 F 78 22 106/32 98
10/16/24 14:37 10/16/24 14:42 10/16/24 14:42 10/16/24 14:37 10/16/24 14:42
Gift Basket Packer consulted with Physician
Gift Basket Packer consulted with physician?: Yes
Name of Physician Consulted: José
MDM/Problems Addressed
Differential Diagnosis Includes:
Upper versus lower GI bleeding, symptomatic anemia, orthostasis, vagal event, gastric ulcer, no evidence for hematemesis
MDM/Problems Addressed:
74-year-old male presenting to the emergency department for evaluation of progressively worsening generalized fatigue, shortness of breath, dark stools and had a near syncopal episode. Symptoms progressively worsening over the last 4 days.
Previous history of gastric ulcer requiring intervention. Currently on Eliquis due to history of arrhythmia. Patient did take his Eliquis this morning. Profoundly hypotensive in triage. IV fluids ordered. Anticipate patient will likely need
multiple units of blood products for anemia. Anticipate admission
Chronic conditions affecting care: COPD
Acute Exacerbation and/or Progression of Chronic Illness: COPD and Other (Anemia)
*Pulse Oximetry
Patient hypoxic: no
*Silverware Supervisor Interpretation
Rate: normal
Rhythm: sinus
*Critical Care Note
Total Time (30-74mins, 75-104mins- exclusive of procedures): 35
comment:
Critical care statement: A total of 35 minutes of critical care time was provided for this patient. This includes management of unstable vital signs, evaluation of the patient at bedside, reviewing the patient's pertinent medical records, discussion
with consultants, review of old EKGs and review of pertinent medical records. This time with separate from time utilized to perform the aforementioned documented procedures
Data Reviewed
Review of Other/Old Records Reveals: Labs and Records
Source: patient and spouse
Patient Management
Discussion with other providers: Hospitalist and Hybrid Car Mechanic
Escalation/DeEscalation of care consider admission/obs:
Case discussed with hospitalist team and GI. Hospitalist team accepts for continued evaluation and treatment. Given patient's instability will treat with Kcentra to reverse Eliquis as he did take the Eliquis this morning. Will also treat with
Protonix bolus and infusion. Patient consented for blood products. 3 units of packed red blood cells ordered. Patient will likely be dispositioned to the ICU for close monitoring
ED Attending Note
-
Portions of this chart may have been created with voice recognition software.� Occasional wrong word or��sound alike� substitutions may have occurred due to the inherent limitations of voice recognition software.
Discharge Plan
Departure
Patient Disposition: Admit
Date of Disposition: 10/16/24
Time of Disposition: 12:26
Presentation/result/management discussed w/ accepting MD/DO: Hospitalist
Discharge Problem:
Acute gastrointestinal bleeding, Anemia
Interventions
Interventions:
*Risk Screen - Suicide Last Done: 10/16/24 11:53
*General Assessment Last Done: 10/16/24 11:53
*Neglect/Abuse Screening Last Done: 10/16/24 11:53
*ED COVID-19 Vaccine History Last Done: 10/16/24 11:53
*Nursing Disposition Last Done: 10/16/24 14:23
ED- Cardiac Assessment Last Done: 10/16/24 12:09
ED- Pulmonary Assessment Last Done: 10/16/24 12:09
Discharge Date and Time
Discharge Date/Time: 10/16/24 14:23
[2024-10-16 12:32] LABS: Anisocytosis 2+; Hypochromasia 1+; Normal RBC Morphology No; Polychromasia 1+
[2024-10-16 12:33] LABS: Ovalocytes FEW; Target Cells 1+
[2024-10-16 12:38] LABS: ALT (SGPT) 14 U/L (0-50); AST (SGOT) 22 U/L (17-59); Albumin 3.1 g/dl (3.5-5.0); Alkaline Phosphatase 56 U/L (38-126); Blood Urea Nitrogen 58 mg/dl (9-20); Calcium 8.2 mg/dl (8.4-10.2); Carbon Dioxide 25 mmol/L (22-30); Chloride 104 mmol/L (98-107); Estimated Creatinine Clearance 49 ml/min; Glucose 135 mg/dl (70-99); Potassium 5.1 mmol/L (3.5-5.1); Sodium 138 mmol/L (135-145); Total Bilirubin 0.5 mg/dl (0.2-1.3); Total Protein 5.2 g/dl (6.3-8.2); Troponin I 0.023 ng/ml; eGFR 49.16
[2024-10-16] MEDS: PROTONIX IV 80 MG IV (12:39)
[2024-10-16] MEDS: PROTONIX 100 IV ×2 (12:40→22:19)
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
[2024-10-16] MEDS: KCENTRA 100 UNIT IV (12:53)
[2024-10-16] MEDS: TYLENOL 1000 MG PO (13:00)
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
[2024-10-16 13:10] LABS: Iron 46 ug/dl (49-181)
[2024-10-16 13:19] LABS: Percent Saturation 11 % (20-50); Total Iron Binding Capacity 403 ug/dl (261-462)
[2024-10-16 13:47] LABS: Ferritin 9.7 ng/ml (17.9-464.0)
[2024-10-16 14:18] LABS: Folate 8.5 ng/ml (2.76-20); Vitamin B12 266 pg/ml (239-931)
--- NOTE | 2024-10-16 14:23 | PTCARENOTE ---
pt received from ed via stretcher- aox4, on 2LNC with CROSS, nsr with bbb on monitor. able to make all needs known, moves all extremities equally, equal strength. protonix gtt and unit of prbc running wide open per Dr. Vieyra- unit completed. pt
and daughter at bedside, all provided education about plan of care- verbalized understanding. pt oriented to unit, all safety precautions in place, call hernandez within reach.
--- NOTE | 2024-10-16 14:40 | PTCARENOTE ---
ordered per Dr. Vieyra infleonor next 2 units of blood wide open
--- NOTE | 2024-10-16 14:47 | CON.INTV ---
Consultation
Consultation Request
Date/Time Consultation Requested: 10/16/24
Date/Time Consultation Performed: 10/16/24
Performing Provider: Azalia
Reason for Consultation: ICU
Medical History
-
History of Present Illness:
Patient is a 74-year-old male with previous history of COPD on 2 L at night, prior history of bleeding gastric ulcer, CAD status post stents, heart failure with reduced ejection fraction, A-fib presenting to ER for weakness and dizziness with
near syncopal episode. He notes that he has acute on chronic shortness of breath which is worsened than his baseline. He had noticed dark black stools without diarrhea that was well-formed over the past few days. He did not notice any bright red
blood per rectum or hematochezia. On arrival to ER, his hemoglobin was noted to be 4, GI was consulted with plan for EGD tomorrow. He was hypotensive as well in the 80s, responded to IV fluids and blood products. He is soon to be completing
transfusion of a total of 3 units. He is admitted to ICU for acute GI bleed.
Past Medical History
Past Medical History: Other (see list below)
Social History
Tobacco: Non-smoker
Alcohol: None
Drug: None
Family History
Family History: Reviewed & Not Pertinent
Allergies / Home Medications
Allergies
Allergy/AdvReac Type Severity Reaction Status Date / Time
No Known Allergies Allergy Verified 07/11/19 16:10
Home Medications
�Medication �Instructions �Recorded �Confirmed �Last Taken �Type
albuterol sulfate 90 mcg/actuation 1 puff inhalation R Q4HPRN PRN 02/21/19 10/16/24 10/16/24 History
aerosol inhaler asthma
aspirin 81 mg tablet,delayed 81 mg PO DAILY #1 tab 02/21/19 10/16/24 10/16/24 Rx
release
atorvastatin 40 mg tablet 40 mg PO DAILY High cholesterol 02/21/19 10/16/24 10/16/24 History
albuterol sulfate 2.5 mg/3 mL 2.5 mg inhalation R BID 07/11/19 10/16/24 10/16/24 History
(0.083 %) solution for nebulization
multivitamin with folic acid 400 1 tab PO DAILY Supplement 07/11/19 10/16/24 10/16/24 History
mcg tablet (Tab-A-Silvano)
roflumilast 500 mcg tablet 500 mcg PO DAILY Lung/breathing 07/11/19 10/16/24 10/16/24 History
(Daliresp) issues
fexofenadine 180 mg tablet 180 mg PO Q48H 02/27/24 10/16/24 Unknown History
fluticasone fur. 100 mcg-umeclid 1 inh inhalation R DAILY 02/27/24 10/16/24 10/16/24 History
62.5 mcg-vilant 25 mcg
inhalat.powder (Trelegy Ellipta)
apixaban 5 mg tablet (Eliquis) 5 mg PO BID 30 days #60 tabs 03/01/24 10/16/24 10/16/24 Rx
carvedilol 6.25 mg tablet 6.25 mg PO BID 30 days #60 tabs 03/01/24 10/16/24 10/16/24 Rx
acetaminophen 325 mg tablet 650 mg PO Q6HPRN PRN mild pain 10/16/24 10/16/24 10/16/24 History
amiodarone 200 mg tablet (Pacerone) 200 mg PO DAILY 10/16/24 10/16/24 10/16/24 History
esomeprazole magnesium 20 mg 20 mg PO DAILY 10/16/24 10/16/24 10/16/24 History
capsule,delayed release (Nexium)
midodrine 5 mg tablet 10 mg PO TID 10/16/24 10/16/24 10/16/24 History
Review of Systems
-
History Source: Patient
All other systems: Negative unless noted
Vitals / Labs / Diagnostic Testing
Vital Signs
Temp Pulse Resp BP Pulse Ox
97.8 F 78 22 106/32 98
10/16/24 14:37 10/16/24 14:42 10/16/24 14:42 10/16/24 14:37 10/16/24 14:42
Lab Data
10/16/24 12:06
10/16/24 12:06
Laboratory Results
10/16/24
12:06
PT 19.2 H
INR 1.59
APTT 35.6 H
Diagnostic Testing:
Physical Exam
-
HEENT: Normocephalic, Anicteric and Moist Mucous Membranes
Cardiovascular: S1/S2 and Regular Rhythm
Respiratory: Clear and Non-Labored Respirations
GI: Soft, Non Distended and Non Tender
Neurology: Awake, Alert, Oriented and No Motor Deficits
Skin: Warm, Dry and Good Color
General: Comfortable and Other (NAD)
Assessment
-
Patient is a 74-year-old male with previous history of COPD on 2 L at night, prior history of bleeding gastric ulcer, CAD status post stents, heart failure with reduced ejection fraction, A-fib presenting to ER for weakness and dizziness with
near syncopal episode. He notes that he has acute on chronic shortness of breath which is worsened than his baseline. He had noticed dark black stools without diarrhea that was well-formed over the past few days. He did not notice any bright red
blood per rectum or hematochezia. On arrival to ER, his hemoglobin was noted to be 4, GI was consulted with plan for EGD tomorrow. He was hypotensive as well in the 80s, responded to IV fluids and blood products. He is soon to be completing
transfusion of a total of 3 units. He is admitted to ICU for acute GI bleed.
UGIB suspected, melena x 3-4 days
Acute blood loss anemia requiring transfusion
Hypovolemic shock resolved with IV fluid resuscitation and blood products
Generalized weakness/dizziness
Leukocytosis
Acute on chronic shortness of breath
JESSICA, creatinine 1.5
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
on Trelegy 100mcg, daliresp and nebulized albuterol
Pulmonary nodule (4 mm in RML)
Follows with Dr. Golden
Restrictive lung disease
Hx of hypercapnia (pCO2 was in 60-80 range in 2019 - he is not on BiPAP or CPAP at home)
Moderate pulmonary hypertension likely due to to group II+ III
History of splenectomy
History of melanoma
Former tobacco smoker
GERD
Aortic valve stenosis
Personal history of COVID-19 (October 2023)
History of GI bleed with PUD
Diverticular disease
Osteoarthritis
Chronic heart failure/HFrEF
Atrial fibrillation (difficult to tell the chronicity of this) - rate now controlled
Plan
No current signs of metabolic encephalopathy or MS changes/following commands
Denies pain at this time.
Pain/sedation: PRN
RASS goals: 0
Hemodynamically stable, not requiring pressors.
Started on home midodrine
Responded to IVFs
Cardiac history reviewed--HFrEF, Afib cautious IVF resuscitation
Prior ECHO reviewed indicating reduced EF 25-30%
Resume home meds when able
Cards eval
Monitor on telemetry
Oxygen needs: 98% on 2L, uses 2L at night/baseline
Prior history of lung disease: COPD, RLD, nodules--known to us/follows Dr Younger
Supplemental O2 as indicated to maintain sats > 89%
Prior CXR/CT reviewed--can hold off on planned CT planning for nodule
CXR as needed
Resume home inhalers
Suspect UGIB given melena
NPO, PPI
3 units to be given, repeat H&H post
GI eval--to scope in AM
Aspiration precautions, HOB > 30 degrees
Speech therapy eval can be considered if at elevated risk
JESSICA present likely prerenal, follow BMP
No history of renal disease
Void trials
Follow urine output, critical I/Os
Replete electrolytes as needed
No signs/symptoms suspicious for infectious etiology at this time
Observe off antibiotics for now
Follow fever trend, WBC count
ABLA due to UGIB
Repeat CBC post tranfusion
DVT prophylaxis as assessed based on risk, including mechanical SCDs--hold OAC/Eliquis at home for Afib
Can transfuse further if indicated for Hb <7, plt < 10
No prior h/o diabetes or thyroid disease
Monitor accuchecks PRN/SS coverage if needed
We will follow
Diagnostic Data
CXR 02-27-2024: Mild cardiomegaly. Slightly increased pulmonary vascularity which could represent mild CHF.
CT Scan: CHEST 08/25/24- Solid and cavitary noncalcified right-sided pulmonary nodules as described above. PET imaging recommended. Severe atherosclerotic vascular disease. Several tiny gallstones.
TTE 02-27-2024: 1. Mild to moderate LVH with basal inferior akinesis and global hypokinesis of the remaining segments, EF 25-30%
2. Mitral annular calcification, thickened mitral leaflets, mild mitral regurgitation and dilated left atrium
3. Aortic sclerosis/borderline aortic stenosis, peak/mean gradient 14/8 mmHg, valve area 2.1 cm to by planimetry
4. Mildly dilated right ventricle with preserved systolic function, mild tricuspid regurgitation and pulmonary artery systolic pressure 40-45 mmHg
In April 2022 the ejection fraction was 45-50% with akinesis of the basal inferior, basal inferolateral and basal septum. The peak aortic valve gradient was 33 mmHg at that time.
Outpatient [facility] Data
PFT:
������ PFT 01/26/24: FVC 2.92/66%, FEV1 1.52/47%, ratio 52. 13% improvement in FEV1 post BD. TLC 4.69/65%, RV 1.73/64%,, DLCO 11.60/42%
�������PFT 12/31/21: FVC 2.77/61%, FEV1 1.67/50%, ratio 60. TLC 4.28/59%, DLCO 10.66/38%.
�������PFT 12/07/20: FVC 2.87/60%, FEV1 1.67/47%, ratio 58. TLC 4.76/64%, DLCO 11.28/39%. Compared to March 2020, this has worsened
�������[place] 06/18/20: FVC 3.10/67%, FEV1 1.76/49%, ratio 59
�������PFT 03/29/20: FVC 3.29/74%, FEV1 2.19/66%, ratio 67. There is evidence of reactive small airways disease. TLC 5.42/77%, DLCO 14.55/53%. when compared to 2016 PFT is stable
�������Spirometry 03/09/19 reveals FVC 2.40/49%, FEV1 1.48/40%, ratio 63.
�������Full pulmonary function test 07/08/2017 reveals FVC 3.41/75%, FEV1 2.24/66% ratio 66, TLC 5.07/72% and DLCO 16.18/58%.
6 MWT:
������ 6MWT 02/02/24: total distance 450 feet, 93% room air, heart rate 58, dyspnea scale 5/10
�������6MWT 12/31/21: Total distance 900 feet, 92% room air, heart rate 105, dyspnea scale 4/10
�������6MWT 10/01/20: Total distance 540 feet, 94% on room air, heart rate 95, dyspnea scale 0.5/10
�������6MWT 03/29/20: Total distance 720 feet, desaturation lacey 94% on room air, heart rate 87, dyspnea scale 5/10
�������6 minute walk test 03/09/19 reveals told distance 1200 feet, desaturation lacey 91%.
RADIOGRAPHIC STUDIES:
������ LDCT 05/22/23: 4 mm right middle lobe nodule. Small left pleural effusion and left basilar consolidation, bronchial wall thickening. Overall no significant change
�������LDCT 12/04/21: small left pleural effusion slightly improved compared to September 2020, mild atelectasis left base, subpleural thickening. Right middle lobe nodule 4 mm image #74, stable, left
upper lobe image #25 nodule stable. New nodule image #30 right side per my review, 6.5 mm (not in report). Peribronchial thickening at the bases. 1.1 cm pretracheal lymph node, stable.
CARDIAC STUDIES:
������ Echo 04/24/22: EF 45%, mild mitral regurgitation, aortic stenosis, PA pressure 39
�������Echo 09/08/19:he has 45%, mild inferior hypokinesis, diastolic dysfunction, mild aortic stenosis, valve area 1.5 cm2, nl PASP
�������02/21/19 cardiac catheterization:2 vessel coronary disease, LAD, RCA. Drug-eluting stent placed in mid LAD. LV dysfunction noted, EF 45%.
�������02/14/19 echocardiogram:LV dysfunction, EF 45%, aortic sclerosis, pulmonary artery pressure 40 with normal RV function.
LABS:
������ 05/22/23: Serum bicarbonate 31, normal creatinine, calcium, liver function
�������06/19/21: White count 35.9, hemoglobin 12.4, 403 platelets, serum bicarbonate 22, normal creatinine, calcium, liver function. Blood culture positive for Fusobacterium necroform
�������12/03/20: Serum bicarbonate 30, normal calcium, creatinine, liver function
�������03/26/20: Covid 19 PCR negative
Reports and relevant images were personally reviewed.
-----
Critical care time 61 mins -- this includes review of history, physical exam, medications, hemodynamic/ventilator parameters, laboratory data, imaging and discussion with house staff, pharmacy, respiratory therapy, cardiac specialist, and nursing.
[2024-10-16] MEDS: ProAmatine 10 MG PO (14:57)
[2024-10-16] MEDS: ProAmatine PO (16:41)
[2024-10-16 16:55] LABS: Hematocrit 19.6 % (39.0-52.0); Hemoglobin 6.3 g/dL (13.0-18.0)
--- NOTE | 2024-10-16 17:01 | W.PN.UPDATE ---
Update Note
Progress Note Update
Hb 6.3. Stopped IV fluids and 1 more unit blood transfusion.
--- NOTE | 2024-10-16 17:25 | PTCARENOTE ---
notified of repeat hgb, 4th unit of prbc infusing as per order, pt tolerating
[2024-10-16] MEDS: SYMBICORT 80/4.5 MCG INHALER 2 PUFF INH (18:29)
[2024-10-16] MEDS: ProAIR HFA INHALER 1 PUFF INH (18:30)
--- NOTE | 2024-10-16 20:00 | PTCARENOTE ---
Rec'd pt sitting on edge of bed, denies chest pain, has pain inbetween his shoulder blades & a headache, requests no pain med at this time, SR / 1' AV block w/ BBB,, + pulses, no edema, skin warm/dry, PRBC infused,pt refuses to wear sequentials=
aware of importance to prevent dvt- video assigned; O2 2 liters nc, lungs w/ fine left base crackles, sat 96, + bowel sounds, no bm, abd obese, soft, no n/v, npo except meds, voiding darian urine w/o difficulty, prot gtt at 10ml/hr
[2024-10-16] MEDS: PROTONIX IV (21:14)
[2024-10-16] MEDS: ROXICODONE 5 MG PO (21:15)
--- NOTE | 2024-10-16 21:17 | PTCARENOTE ---
oxycodone 5mg po given for headache & pain beween shoulder blades
[2024-10-16 21:20] LABS: Hematocrit 21.6 % (39.0-52.0); Hemoglobin 7.2 g/dL (13.0-18.0)
[2024-10-16 21:31] LABS: Phosphorus 4.2 mg/dl (2.5-4.5)
--- NOTE | 2024-10-16 22:18 | PTCARENOTE ---
1 unit prbc hung per order
[2024-10-16] MEDS: VALIUM INJECTION 5 MG IV (23:03)
--- NOTE | 2024-10-16 23:05 | PTCARENOTE ---
Pt still c/o pain between shoulder blades, headache & mid back,K PHILIP Barbosa in to see pt; jen 5mg iv given as ordered
[2024-10-17] VITALS (33 sets, daily range): BP systolic 84–145; BP diastolic 34–99; BMI 29.1
--- NOTE | 2024-10-17 00:35 | PTCARENOTE ---
Addendum entered by Laura Gates RN 10/17/24 00:55:
pain improved after Valium
Original Note:
prbc infused, fine bibas crackles
[2024-10-17 03:48] LABS: % Basophils 0.4 % (0-2); % Eosinophils 0.8 % (0-6); % Immature Granulocytes 1.1 % (0-0.5); % Lymphocytes 14.1 % (20.5-51.1); % Monocytes 13.7 % (1.7-9.3); % Neutrophils 69.9 % (42.2-75.2); Absolute Basophils 0.1 10^3/uL (0-0.2); Absolute Eosinophils 0.2 10^3/uL (0-0.7); Absolute Immature Granulocytes 0.2 10^3/uL (0-0.05); Absolute Lymphocytes 2.8 10^3/uL (1.2-3.4); Absolute Monocytes 2.7 10^3/uL (0.1-0.6); Absolute Neutrophils 13.7 10^3/uL (1.4-6.5); Hematocrit 23.3 % (39.0-52.0); Hemoglobin 7.7 g/dL (13.0-18.0); Mean Corpuscular Hgb 30.4 pg (27.0-31.0); Mean Corpuscular Volume 92.1 fL (80.0-94.0); Mean Platelet Volume 9.9 fL (7.4-10.4); Platelet Count 215 10^3/uL (130-400); Red Blood Cell Count 2.53 10^6/uL (4.70-6.10); Red Cell Dist. Width 15.9 % (11.5-14.5); White Blood Cell Count 19.6 10^3/uL (4.8-10.8)
--- NOTE | 2024-10-17 04:23 | PTCARENOTE ---
sys reviewed, lungs w/ crackles Left base, requests no pain med at present even though still has pain
[2024-10-17 04:29] LABS: ALT (SGPT) 13 U/L (0-50); AST (SGOT) 20 U/L (17-59); Albumin 2.8 g/dl (3.5-5.0); Alkaline Phosphatase 53 U/L (38-126); Blood Urea Nitrogen 64 mg/dl (9-20); Calcium 7.6 mg/dl (8.4-10.2); Carbon Dioxide 22 mmol/L (22-30); Chloride 110 mmol/L (98-107); Estimated Creatinine Clearance 49 ml/min; Glucose 116 mg/dl (70-99); Potassium 4.4 mmol/L (3.5-5.1); Sodium 140 mmol/L (135-145); Total Bilirubin 0.9 mg/dl (0.2-1.3); Total Protein 4.7 g/dl (6.3-8.2); eGFR 49.16
--- NOTE | 2024-10-17 05:38 | PTCARENOTE ---
prbc hung per order
[2024-10-17] MEDS: PROTONIX 100 IV ×2 (05:46→17:48)
[2024-10-17] MEDS: ProAmatine PO ×3 (07:03→17:02)
[2024-10-17] MEDS: PACERONE 200 MG PO (07:28)
[2024-10-17] MEDS: LIPITOR 40 MG PO (07:28)
[2024-10-17] MEDS: CLARITIN 10 MG PO (07:28)
[2024-10-17] MEDS: DALIRESP 500 MCG PO (07:28)
--- NOTE | 2024-10-17 07:36 | PTCARENOTE ---
pt received from previous rn- aox3, 2LNC, nsr with 1st degree bbb and pvcs on monitor. pt c/o mild abdominal cramping at this time. blood transfusion continues- pt tolerating. protonix gtt infusing. discussed plan of care with pt and -
verbalized understanding. continues to refuse scds despite education. all safety precautions in place, call hernandez within reach
[2024-10-17] MEDS: SYMBICORT 80/4.5 MCG INHALER 2 PUFF INH ×2 (07:40→20:26)
[2024-10-17] MEDS: SPIRIVA RESPIMAT 2.5 MCG 2 PUFF INH (07:40)
--- NOTE | 2024-10-17 08:37 | W.PN.INTV ---
Today's Communication / Plan
Recommendations
PPI
Follow hemoglobin
Transfuse as needed
Monitor for CHF
GI following-endoscopy pending
Assessment
-
74-year-old male with previous history of COPD on 2 L at night-follows Dr. Golden, prior history of bleeding gastric ulcer, CAD status post stents, heart failure with reduced ejection fraction, A-fib presenting to ER for weakness and dizziness
with near syncopal episode. He notes that he has acute on chronic shortness of breath which is worsened than his baseline. He had noticed dark black stools without diarrhea that was well-formed over the past few days. He did not notice any bright
red blood per rectum or hematochezia. On arrival to ER, his hemoglobin was noted to be 4, GI was consulted with plan for EGD tomorrow. He was hypotensive as well in the 80s, responded to IV fluids and blood products. He is soon to be completing
transfusion of a total of 3 units. He is admitted to ICU for acute GI bleed 10/16/2024.
UGIB suspected, melena x 3-4 days
Acute blood loss anemia requiring transfusion
Hypovolemic shock resolved with IV fluid resuscitation and blood products
Generalized weakness/dizziness
Leukocytosis
Acute on chronic shortness of breath
JESSICA, creatinine 1.5
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
on Trelegy 100mcg, daliresp and nebulized albuterol
Pulmonary nodule (4 mm in RML)
Follows with Dr. Golden
Restrictive lung disease
Hx of hypercapnia (pCO2 was in 60-80 range in 2019 - he is not on BiPAP or CPAP at home)
Moderate pulmonary hypertension likely due to to group II+ III
History of splenectomy
History of melanoma
Former tobacco smoker
GERD
Aortic valve stenosis
Personal history of COVID-19 (October 2023)
History of GI bleed with PUD
Diverticular disease
Osteoarthritis
Chronic heart failure/HFrEF
Atrial fibrillation (difficult to tell the chronicity of this) - rate now controlled
Plan
Remains critically ill with ongoing gastrointestinal bleeding on 60 unit packed red blood cell
Supplemental oxygen as needed
Aspiration precautions
Nebulizers as needed
Outpatient Dr. Golden follow-up
Monitor hemoglobin
Transfuse packed red blood cells and FFP as needed
Monitor coagulopathy
GI evaluation ongoing
Endoscopy per GI pending 10/17/2024
PPI drip
Monitor renal function
If renal function does not improve then consider nephrology evaluation
Replete electrolytes
No obvious signs of infection
Observe off antibiotics
History of EF 25-30%
Monitor for CHF
Monitor on telemetry
DVT prophylaxis-mechanical
GI prophylaxis-on PPI drip
Aspiration precautions
Nutrition per GI
Early mobilization
Critical care statement: A total of 50 minutes of critical care time was provided for this patient today. This includes management of unstable vital signs, management of transfusions, evaluation of the patient at bedside, reviewing the patient's
pertinent medical records including radiographs, pressor management, transfusion management, microbiology, laboratory evaluations, and discussion with primary team, consultants, pharmacy, nutrition, physical therapy, case management, charge nurse,
critical care nursing, and respiratory therapy.
Diagnostic Data
CXR 02-27-2024: Mild cardiomegaly. Slightly increased pulmonary vascularity which could represent mild CHF.
CT Scan: CHEST 08/25/24- Solid and cavitary noncalcified right-sided pulmonary nodules as described above. PET imaging recommended. Severe atherosclerotic vascular disease. Several tiny gallstones.
TTE 02-27-2024: 1. Mild to moderate LVH with basal inferior akinesis and global hypokinesis of the remaining segments, EF 25-30%
2. Mitral annular calcification, thickened mitral leaflets, mild mitral regurgitation and dilated left atrium
3. Aortic sclerosis/borderline aortic stenosis, peak/mean gradient 14/8 mmHg, valve area 2.1 cm to by planimetry
4. Mildly dilated right ventricle with preserved systolic function, mild tricuspid regurgitation and pulmonary artery systolic pressure 40-45 mmHg
In April 2022 the ejection fraction was 45-50% with akinesis of the basal inferior, basal inferolateral and basal septum. The peak aortic valve gradient was 33 mmHg at that time.
Outpatient [facility] Data
PFT:
������ PFT 01/26/24: FVC 2.92/66%, FEV1 1.52/47%, ratio 52. 13% improvement in FEV1 post BD. TLC 4.69/65%, RV 1.73/64%,, DLCO 11.60/42%
�������PFT 12/31/21: FVC 2.77/61%, FEV1 1.67/50%, ratio 60. TLC 4.28/59%, DLCO 10.66/38%.
�������PFT 12/07/20: FVC 2.87/60%, FEV1 1.67/47%, ratio 58. TLC 4.76/64%, DLCO 11.28/39%. Compared to March 2020, this has worsened
�������[place] 06/18/20: FVC 3.10/67%, FEV1 1.76/49%, ratio 59
�������PFT 03/29/20: FVC 3.29/74%, FEV1 2.19/66%, ratio 67. There is evidence of reactive small airways disease. TLC 5.42/77%, DLCO 14.55/53%. when compared to 2017 PFT is stable
�������Spirometry 03/09/19 reveals FVC 2.40/49%, FEV1 1.48/40%, ratio 63.
�������Full pulmonary function test 07/08/2017 reveals FVC 3.41/75%, FEV1 2.24/66% ratio 66, TLC 5.07/72% and DLCO 16.18/58%.
6 MWT:
������ 6MWT 02/02/24: total distance 450 feet, 93% room air, heart rate 58, dyspnea scale 5/10
�������6MWT 12/31/21: Total distance 900 feet, 92% room air, heart rate 105, dyspnea scale 4/10
�������6MWT 10/01/20: Total distance 540 feet, 94% on room air, heart rate 95, dyspnea scale 0.5/10
�������6MWT 03/29/20: Total distance 720 feet, desaturation lacey 94% on room air, heart rate 87, dyspnea scale 5/10
�������6 minute walk test 03/09/19 reveals told distance 1200 feet, desaturation lacey 91%.
RADIOGRAPHIC STUDIES:
������ LDCT 05/22/23: 4 mm right middle lobe nodule. Small left pleural effusion and left basilar consolidation, bronchial wall thickening. Overall no significant change
�������LDCT 12/04/21: small left pleural effusion slightly improved compared to September 2020, mild atelectasis left base, subpleural thickening. Right middle lobe nodule 4 mm image #74, stable, left
upper lobe image #25 nodule stable. New nodule image #30 right side per my review, 6.5 mm (not in report). Peribronchial thickening at the bases. 1.1 cm pretracheal lymph node, stable.
CARDIAC STUDIES:
������ Echo 04/24/22: EF 45%, mild mitral regurgitation, aortic stenosis, PA pressure 39
�������Echo 09/08/19:he has 45%, mild inferior hypokinesis, diastolic dysfunction, mild aortic stenosis, valve area 1.5 cm2, nl PASP
�������02/21/19 cardiac catheterization:2 vessel coronary disease, LAD, RCA. Drug-eluting stent placed in mid LAD. LV dysfunction noted, EF 45%.
�������02/14/19 echocardiogram:LV dysfunction, EF 45%, aortic sclerosis, pulmonary artery pressure 40 with normal RV function.
LABS:
������ 05/22/23: Serum bicarbonate 31, normal creatinine, calcium, liver function
�������06/19/21: White count 35.9, hemoglobin 12.4, 403 platelets, serum bicarbonate 22, normal creatinine, calcium, liver function. Blood culture positive for Fusobacterium necroform
�������12/03/20: Serum bicarbonate 30, normal calcium, creatinine, liver function
�������03/26/20: Covid 19 PCR negative
Reports and relevant images were personally reviewed.
.
Subjective Dataa
Subjective Data
Date of Service:
Date of Service: October 17, 2024
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
Subjective:
Continues to have some dark bowel movements, on 6 unit packed red blood cell, no complaints of shortness of breath, chest congestion, productive cough or abdominal pain
Review of Systems
General: Other (Per HPI)
Objective Data
Data Reviewed
Vital Signs / I&O / Oxygen:
Vital Signs
Temp Pulse Resp BP Pulse Ox
97.9 F 82 27 118/61 98
10/17/24 07:27 10/17/24 07:44 10/17/24 07:44 10/17/24 07:00 10/17/24 07:44
Intake and Output
10/16/24 10/17/24 10/18/24
06:59 06:59 06:59
Intake Total 1570 / 1580
Output Total 1350 / 1350
Balance 220 / 230
SaO2 98
Nasal Cannula flow liters per 2
minute
Physical Exam
General: Respiratory Distress (n) and Comfortable
HEENT: Normocephalic, Anicteric and Moist Mucous Membranes
Cardiovascular: Regular Rhythm and Murmur
Respiratory: Clear ( decreased breath sounds and prolonged expiratory time), Wheeze (n), Crackles (Rare basilar), Non-Labored Respirations, Accessory Resp Muscle Use (n) and Stridor (n)
GI: Soft, Non Distended and Non Tender
Neurology: Awake, Alert and No Motor Deficits
Skin: Warm, Good Color, Cyanosis (n) and Jaundice (n)
Labs/Micro/Reports
Lab Data
10/17/24 03:28
Laboratory Results
10/16/24
12:06
PT 19.2 H
INR 1.59
APTT 35.6 H
--- NOTE | 2024-10-17 09:27 | PTCARENOTE ---
pt taken to GI Lab.
--- NOTE | 2024-10-17 10:36 | W.PN.HOSP.TC ---
Today's Communication/Plan
-
Follow-up EGD results and GI recommendations
Assessment / Plan
Assessment / Plan
Gen-AAOx3, NAD
HEENT-NC, AT, anicteric, clear oral mm
Neck-supple
CV-reg, no M, +S1/S2
Lungs-clear B/L
Abd-soft, NT, ND
Musculoskeletal-no edema, no deformity
Skin-warm and dry
Neuro-grossly non-focal
Psych-calm, cooperative
Patient is a 74-year-old male with medical history of duodenal ulcer (status post clipping), HFrEF, and A-fib (on Eliquis, status post cardioversion) who presented with generalized fatigue and multiple episodes of bowel movements with melena. His
initial hemoglobin was 4 but has responded well to transfusions, hemoglobin 7.7 following transfusion of 3 units packed red blood cells. Given Kcentra in the ED, holding home Eliquis.
GI bleed: Suspect upper, plan for upper endoscopy today 10/17, following which we will advance diet per GI recommendations, continue frequent hemoglobin checks, continue holding home Eliquis for now, outpatient follow-up with EP to consider Watchman
device, continue IV PPI drip
Pulmonary nodules: Noted on previous outpatient imaging, will need close outpatient follow-up
CODE STATUS: Full code
Anticipated Discharge: 24 - 48 hours
Subjective/Interval History
-
Date of Service: October 17, 2024
Patient was seen and examined at bedside this morning. Reports feeling much better now after transfusion of 3 units packed red blood cells. Reports dark-colored stool with bowel movement this morning, mild abdominal discomfort relieved after bowel
movement.
Objective Data
-
Labs:
Laboratory Results
10/17/24 10/17/24
03:28 10:30
WBC 19.6 H
Hgb 7.7 L Pending
Hct 23.3 L Pending
Plt Count 215 D
Sodium 140
Potassium 4.4
Chloride 110 H
Carbon Dioxide 22
BUN 64 H
Creatinine 1.5 H
Glucose 116 H
Calcium 7.6 L
Total Bilirubin 0.9
AST 20
ALT 13
Alkaline Phosphatase 53
Vital Signs:
Vital Signs
Temp Pulse Resp BP Pulse Ox
98.2 F 90 26 129/51 95
10/17/24 08:48 10/17/24 09:16 10/17/24 09:16 10/17/24 09:17 10/17/24 08:49
I&O
10/16/24 10/17/24 10/18/24
06:59 06:59 06:59
Intake Total 1570 / 1580 280 / 280
Output Total 1350 / 1350
Balance 220 / 230 280 / 280
Review of Systems
-
History Source: Patient
All other systems: Reviewed and negative
Data Reviewed
-
Diagnostic Radiology: Report Reviewed by me
Medical Tests (Nuc Med, Echo etc): Report Reviewed by me
Labs: Labs Reviewed by me
[2024-10-17 10:46] LABS: Hematocrit 22.8 % (39.0-52.0); Hemoglobin 7.9 g/dL (13.0-18.0)
--- NOTE | 2024-10-17 11:06 | PTCARENOTE ---
Dr. Saxena made aware of dark stool and repeat hgb result. pt resting comfortably post gi lab. assessment unchanged further.
--- NOTE | 2024-10-17 11:12 | CM ---
CM following re: discharge planning.
Discussed in Rounds, reviewed pt's chart, met with pt and pt's spouse at bedside.
Pt is a 74 year old male, admitted with primary dx of UGIB
Pt reports he lives with spouse 2SH, 1 step to enter, has 2 supportive children. 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 No DME, VN or SNF history.
PCP: Joseph Aj
Pharmacy: [facility].
D/C plan: hoe with anticipated no VN after care needs. Spouse to transport at discharge.
CM will follow with discharge plan updates as needed
--- NOTE | 2024-10-17 16:31 | PTCARENOTE ---
pt assessment unchanged. oob to bathroom with supervision. no complaints at this time. repeat hnh sent
[2024-10-17 16:42] LABS: Hematocrit 23.2 % (39.0-52.0); Hemoglobin 7.7 g/dL (13.0-18.0)
--- NOTE | 2024-10-17 17:01 | PTCARENOTE ---
labs discussed with Dr. Anahy dykes for pt to start low residue diet, no repeat labs until am.
--- NOTE | 2024-10-17 20:00 | PTCARENOTE ---
Rec'd pt sitting on edge of bed, denies pain, SR w/ BBB, occas pvc, bp stable, + pulses , no edema, skin warm/dry, O2 2 litersnc, lungs w/ fine bibas crackles, decr in bases,sat 95, + CROSS, + bowel sounds, no bm, abd soft, no n/v, sharmin diet, voiding
darian urine, protonix gtt at 10ml/hr
[2024-10-17] MEDS: ATIVAN 0.5 MG PO (22:31)
--- NOTE | 2024-10-17 22:35 | PTCARENOTE ---
ativan 0.5mg po given as requested
--- NOTE | 2024-10-17 23:34 | PTCARENOTE ---
sys reviewed, lungs w/ decr breath sounds in bases
[2024-10-18] VITALS (26 sets, daily range): BP systolic 84–135; BP diastolic 43–88; BMI 28.4
[2024-10-18] MEDS: PROTONIX 100 IV (02:57)
--- NOTE | 2024-10-18 03:28 | PTCARENOTE ---
sys reviewed, lungs decr in bases
[2024-10-18 03:30] LABS: % Basophils 0.2 % (0-2); % Eosinophils 1.8 % (0-6); % Lymphocytes 11.1 % (20.5-51.1); % Monocytes 17.9 % (1.7-9.3); Absolute Eosinophils 0.3 10^3/uL (0-0.7); Absolute Immature Granulocytes 0.2 10^3/uL (0-0.05); Absolute Lymphocytes 1.9 10^3/uL (1.2-3.4); Absolute Monocytes 3.1 10^3/uL (0.1-0.6); Absolute Neutrophils 11.9 10^3/uL (1.4-6.5); Hematocrit 22.1 % (39.0-52.0); Hemoglobin 7.2 g/dL (13.0-18.0); Mean Corp Hgb Conc. 32.6 g/dL (33.0-37.0); Mean Corpuscular Hgb 30.4 pg (27.0-31.0); Mean Corpuscular Volume 93.2 fL (80.0-94.0); Mean Platelet Volume 10.1 fL (7.4-10.4); Nucleated Red Blood Cells % 1.5 % (-); Platelet Count 207 10^3/uL (130-400); Red Blood Cell Count 2.37 10^6/uL (4.70-6.10); Red Cell Dist. Width 16.7 % (11.5-14.5); White Blood Cell Count 17.5 10^3/uL (4.8-10.8)
[2024-10-18 03:51] LABS: Blood Urea Nitrogen 45 mg/dl (9-20); Calcium 7.9 mg/dl (8.4-10.2); Carbon Dioxide 22 mmol/L (22-30); Chloride 108 mmol/L (98-107); Estimated Creatinine Clearance 61 ml/min; Glucose 104 mg/dl (70-99); Magnesium 1.9 mg/dl (1.6-2.3); Phosphorus 4.6 mg/dl (2.5-4.5); Potassium 3.8 mmol/L (3.5-5.1); Sodium 139 mmol/L (135-145); eGFR > 60.00
--- NOTE | 2024-10-18 03:52 | PTCARENOTE ---
Zev Guzmán NP aware of hgb 7.2, to recheck at 1100
[2024-10-18] MEDS: SYMBICORT 80/4.5 MCG INHALER 2 PUFF INH ×2 (07:28→20:12)
[2024-10-18] MEDS: SPIRIVA RESPIMAT 2.5 MCG 2 PUFF INH (07:28)
--- NOTE | 2024-10-18 07:43 | W.PN.INTV ---
Today's Communication / Plan
Recommendations
Follow hemoglobin
Transfuse as needed
Colonoscopy tomorrow
Outpatient pulmonary follow-up
Transfer out of ICU-call pulmonary if respiratory issues arise
Assessment
-
74-year-old male with previous history of COPD on 2 L at night-follows Dr. Golden, prior history of bleeding gastric ulcer, CAD status post stents, heart failure with reduced ejection fraction, A-fib presenting to ER for weakness and dizziness
with near syncopal episode. He notes that he has acute on chronic shortness of breath which is worsened than his baseline. He had noticed dark black stools without diarrhea that was well-formed over the past few days. He did not notice any bright
red blood per rectum or hematochezia. On arrival to ER, his hemoglobin was noted to be 4, GI was consulted with plan for EGD tomorrow. He was hypotensive as well in the 80s, responded to IV fluids and blood products. He is soon to be completing
transfusion of a total of 3 units. He is admitted to ICU for acute GI bleed 10/16/2024.
UGIB suspected, melena x 3-4 days
Acute blood loss anemia requiring transfusion
Hypovolemic shock resolved with IV fluid resuscitation and blood products
Generalized weakness/dizziness
Leukocytosis
Acute on chronic shortness of breath
JESSICA, creatinine 1.5
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
on Trelegy 100mcg, daliresp and nebulized albuterol
Pulmonary nodule (4 mm in RML)
Follows with Dr. Golden
Restrictive lung disease
Hx of hypercapnia (pCO2 was in 60-80 range in 2018 - he is not on BiPAP or CPAP at home)
Moderate pulmonary hypertension likely due to to group II+ III
History of splenectomy
History of melanoma
Former tobacco smoker
GERD
Aortic valve stenosis
Personal history of COVID-19 (October 2023)
History of GI bleed with PUD
Diverticular disease
Osteoarthritis
Chronic heart failure/HFrEF
Atrial fibrillation (difficult to tell the chronicity of this) - rate now controlled
Plan
Hemodynamics have improved
Supplemental oxygen as needed
Aspiration precautions
Nebulizers as needed-currently not bronchospastic
Outpatient Dr. Golden follow-up
Continue to follow hemoglobin
Transfuse packed red blood cells and FFP as needed
Monitor coagulopathy
GI evaluation ongoing
Endoscopy per GI-10/17/2024-small speck of blood in proximal jejunum-transfused a total of 6 units packed red blood cells
PPI drip
Colonoscopy 10/19/2024
Consideration towards capsule endoscopy if colonoscopy unrevealing
Monitor renal function
If renal function does not improve then consider nephrology evaluation
Replete electrolytes
No obvious signs of infection
Observe off antibiotics
History of EF 25-30%
Monitor for CHF
Monitor on telemetry
DVT prophylaxis-mechanical
GI prophylaxis-on PPI drip
Aspiration precautions
Nutrition per GI
Early mobilization
If continues to remain hemodynamically stable, no obvious bleeding then can be transferred out of ICU-call pulmonary if respiratory issues arise
Outpatient follow-up with Dr. Golden
Reviewed the patient's pertinent medical records including radiographs, pressor management, transfusion management, microbiology, laboratory evaluations, and discussion with primary team, consultants, pharmacy, nutrition, physical therapy, case
management, charge nurse, critical care nursing, and respiratory therapy.
Diagnostic Data
CXR 02-27-2024: Mild cardiomegaly. Slightly increased pulmonary vascularity which could represent mild CHF.
CT Scan: CHEST 08/25/24- Solid and cavitary noncalcified right-sided pulmonary nodules as described above. PET imaging recommended. Severe atherosclerotic vascular disease. Several tiny gallstones.
TTE 02-27-2024: 1. Mild to moderate LVH with basal inferior akinesis and global hypokinesis of the remaining segments, EF 25-30%
2. Mitral annular calcification, thickened mitral leaflets, mild mitral regurgitation and dilated left atrium
3. Aortic sclerosis/borderline aortic stenosis, peak/mean gradient 14/8 mmHg, valve area 2.1 cm to by planimetry
4. Mildly dilated right ventricle with preserved systolic function, mild tricuspid regurgitation and pulmonary artery systolic pressure 40-45 mmHg
In April 2022 the ejection fraction was 45-50% with akinesis of the basal inferior, basal inferolateral and basal septum. The peak aortic valve gradient was 33 mmHg at that time.
Outpatient [facility] Data
PFT:
������ PFT 01/26/24: FVC 2.92/66%, FEV1 1.52/47%, ratio 52. 13% improvement in FEV1 post BD. TLC 4.69/65%, RV 1.73/64%,, DLCO 11.60/42%
�������PFT 12/31/21: FVC 2.77/61%, FEV1 1.67/50%, ratio 60. TLC 4.28/59%, DLCO 10.66/38%.
�������PFT 12/07/20: FVC 2.87/60%, FEV1 1.67/47%, ratio 58. TLC 4.76/64%, DLCO 11.28/39%. Compared to March 2020, this has worsened
�������[place] 06/18/20: FVC 3.10/67%, FEV1 1.76/49%, ratio 59
�������PFT 03/29/20: FVC 3.29/74%, FEV1 2.19/66%, ratio 67. There is evidence of reactive small airways disease. TLC 5.42/77%, DLCO 14.55/53%. when compared to 2016 PFT is stable
�������Spirometry 03/09/19 reveals FVC 2.40/49%, FEV1 1.48/40%, ratio 63.
�������Full pulmonary function test 07/08/2017 reveals FVC 3.41/75%, FEV1 2.24/66% ratio 66, TLC 5.07/72% and DLCO 16.18/58%.
6 MWT:
������ 6MWT 02/02/24: total distance 450 feet, 93% room air, heart rate 58, dyspnea scale 5/10
�������6MWT 12/31/21: Total distance 900 feet, 92% room air, heart rate 105, dyspnea scale 4/10
�������6MWT 10/01/20: Total distance 540 feet, 94% on room air, heart rate 95, dyspnea scale 0.5/10
�������6MWT 03/29/20: Total distance 720 feet, desaturation lacey 94% on room air, heart rate 87, dyspnea scale 5/10
�������6 minute walk test 03/09/19 reveals told distance 1200 feet, desaturation lacey 91%.
RADIOGRAPHIC STUDIES:
������ LDCT 05/22/23: 4 mm right middle lobe nodule. Small left pleural effusion and left basilar consolidation, bronchial wall thickening. Overall no significant change
�������LDCT 12/04/21: small left pleural effusion slightly improved compared to September 2020, mild atelectasis left base, subpleural thickening. Right middle lobe nodule 4 mm image #74, stable, left
upper lobe image #25 nodule stable. New nodule image #30 right side per my review, 6.5 mm (not in report). Peribronchial thickening at the bases. 1.1 cm pretracheal lymph node, stable.
CARDIAC STUDIES:
������ Echo 04/24/22: EF 45%, mild mitral regurgitation, aortic stenosis, PA pressure 39
�������Echo 09/08/19:he has 45%, mild inferior hypokinesis, diastolic dysfunction, mild aortic stenosis, valve area 1.5 cm2, nl PASP
�������02/21/19 cardiac catheterization:2 vessel coronary disease, LAD, RCA. Drug-eluting stent placed in mid LAD. LV dysfunction noted, EF 45%.
�������02/14/19 echocardiogram:LV dysfunction, EF 45%, aortic sclerosis, pulmonary artery pressure 40 with normal RV function.
LABS:
������ 05/22/23: Serum bicarbonate 31, normal creatinine, calcium, liver function
�������06/19/21: White count 35.9, hemoglobin 12.4, 403 platelets, serum bicarbonate 22, normal creatinine, calcium, liver function. Blood culture positive for Fusobacterium necroform
�������12/03/20: Serum bicarbonate 30, normal calcium, creatinine, liver function
�������03/26/20: Covid 19 PCR negative
Reports and relevant images were personally reviewed.
.
Subjective Dataa
Subjective Data
Date of Service:
Date of Service: October 18, 2024
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
Subjective:
Feels better, no obvious bleeding, no shortness of breath at rest, chest pain or abdominal pain
Review of Systems
General: Other (Per HPI)
Objective Data
Data Reviewed
Vital Signs / I&O / Oxygen:
Vital Signs
Temp Pulse Resp BP Pulse Ox
98.8 F 89 24 103/49 95
10/18/24 03:28 10/18/24 07:33 10/18/24 07:33 10/18/24 06:00 10/18/24 07:33
Intake and Output
10/17/24 10/18/24 10/19/24
06:59 06:59 06:59
Intake Total 1570 / 1580 1072 / 1072
Output Total 1350 / 1350 1500 / 1500
Balance 220 / 230 -428 / -428
SaO2 95
Nasal Cannula flow liters per 2
minute
Physical Exam
General: Respiratory Distress (n) and Comfortable
HEENT: Normocephalic, Anicteric and Moist Mucous Membranes
Cardiovascular: Regular Rhythm and Murmur
Respiratory: Clear ( decreased breath sounds and prolonged expiratory time), Wheeze (n), Crackles (Rare basilar), Non-Labored Respirations, Accessory Resp Muscle Use (n) and Stridor (n)
GI: Soft, Non Distended and Non Tender
Neurology: Awake, Alert and No Motor Deficits
Skin: Warm, Good Color, Cyanosis (n) and Jaundice (n)
Labs/Micro/Reports
Lab Data
10/18/24 03:08
[2024-10-18] MEDS: DALIRESP 500 MCG PO (07:48)
[2024-10-18] MEDS: LIPITOR 40 MG PO (07:48)
[2024-10-18] MEDS: ProAmatine PO ×3 (07:48→17:48)
[2024-10-18] MEDS: PACERONE 200 MG PO (07:48)
--- NOTE | 2024-10-18 08:29 | PTCARENOTE ---
pt received from previous rn- aox3, on 2LNC, no complaints at this time. Dr. Saxena at bedside- ordered to d/c protonix gtt. plan of care discussed with Dr. Saxena with pt and pt - verbalized understanding. all safety precautions in place,
call hernandez within reach. pt on clear liquid diet.
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
[2024-10-18 10:57] LABS: Hemoglobin 7.1 g/dL (13.0-18.0)
--- NOTE | 2024-10-18 12:25 | W.PN.HOSP.TC ---
Today's Communication/Plan
-
Transfuse another unit PRBCs
Bowel prep tonight for planned colonoscopy tomorrow 10/19
Assessment / Plan
Assessment / Plan
Gen-AAOx3, NAD
HEENT-NC, AT, anicteric, clear oral mm
Neck-supple
CV-reg, no M, +S1/S2
Lungs-clear B/L
Abd-soft, NT, ND
Musculoskeletal-no edema, no deformity
Skin-warm and dry
Neuro-grossly non-focal
Psych-calm, cooperative
Patient is a 74-year-old male with medical history of duodenal ulcer (status post clipping), HFrEF, and A-fib (on Eliquis, status post cardioversion) who presented with generalized fatigue and multiple episodes of bowel movements with melena. His
initial hemoglobin was 4 but has responded well to transfusions, hemoglobin 7.7 following transfusion of 3 units packed red blood cells. Given Kcentra in the ED, holding home Eliquis.
GI bleed:
-No source of bleeding identified on upper endoscopy yesterday 10/17, planning colonoscopy tomorrow 10/19 per GI recommendations, hemoglobin continues to drift down slowly and so we will transfuse another unit PRBCs today (now total of 4 units
transfused), continue holding home Eliquis for now, outpatient follow-up with EP to consider Watchman device, continue IV PPI drip
Pulmonary nodules: Noted on previous outpatient imaging, will need close outpatient follow-up
CODE STATUS: Full code
Anticipated Discharge: 24 - 48 hours
Subjective/Interval History
-
Date of Service: October 18, 2024
Mr. Perez was seen and examined at bedside this morning. He feels generally well with only complaint of mild lower abdominal discomfort that feels like he needs to have a bowel movement. He tolerated EGD yesterday well. EGD revealed no source
of acute bleeding. Awaiting colonoscopy tomorrow.
Objective Data
-
Labs:
Laboratory Results
10/18/24 10/18/24
03:08 10:44
WBC 17.5 H
Hgb 7.2 L 7.1 L
Hct 22.1 L 22.0 L
Plt Count 207
Sodium 139
Potassium 3.8
Chloride 108 H
Carbon Dioxide 22
BUN 45 H
Creatinine 1.2
Glucose 104 H
Calcium 7.9 L
Vital Signs:
Vital Signs
Temp Pulse Resp BP Pulse Ox
98.5 F 88 18 126/60 97
10/18/24 12:18 10/18/24 12:18 10/18/24 12:18 10/18/24 12:18 10/18/24 10:00
I&O
10/17/24 10/18/24 10/19/24
06:59 06:59 06:59
Intake Total 1570 / 1580 1072 / 1082 20 /
Output Total 1350 / 1350 1500 / 1700 400 / 400
Balance 220 / 230 -428 / -618 -380 / -380
Review of Systems
-
History Source: Patient
All other systems: Reviewed and negative
Physical Exam
-
General: No Apparent Distress
Data Reviewed
-
Labs: Labs Reviewed by me
[2024-10-18] MEDS: MIRALAX 51 GRAMS PO ×3 (15:32→21:52)
--- NOTE | 2024-10-18 15:49 | PTCARENOTE ---
pt tolerated blood transfusion. starting bowel prep, ambulating in room. no changes in assessment.
[2024-10-18 18:03] LABS: Hematocrit 24.7 % (39.0-52.0); Hemoglobin 8.1 g/dL (13.0-18.0)
--- NOTE | 2024-10-18 20:18 | PTCARENOTE ---
Rec'd pt sitting in bed, amb ad charley in room, denies pain, SR w/ BBB, occas pvc, bp stable, + pulses, no edema, O2 2 liters nc, lungs decr in bases, sat 95, + bowel sounds, on clear liquids, ongoing colonoscopy prep, abd soft, no n/v, voiding w/o
difficulty
[2024-10-18] MEDS: TYLENOL 650 MG PO (21:57)
[2024-10-18] MEDS: ATIVAN 0.5 MG PO (21:58)
--- NOTE | 2024-10-18 22:06 | PTCARENOTE ---
ativan 0.5 mg po given as requested, tylenol 650mg po given for headache
--- NOTE | 2024-10-18 23:39 | PTCARENOTE ---
sys reviewed, changes noted
[2024-10-19] VITALS (17 sets, daily range): BP systolic 104–134; BP diastolic 36–97; BMI 28.8
--- NOTE | 2024-10-19 03:05 | PTCARENOTE ---
sys reviewed, no changes
[2024-10-19] MEDS: MIRALAX 51 GRAMS PO (04:57)
[2024-10-19 05:25] LABS: % Basophils 0.4 % (0-2); % Eosinophils 2.2 % (0-6); % Immature Granulocytes 0.8 % (0-0.5); % Lymphocytes 11.1 % (20.5-51.1); % Monocytes 18.2 % (1.7-9.3); % Neutrophils 67.3 % (42.2-75.2); Absolute Basophils 0.1 10^3/uL (0-0.2); Absolute Eosinophils 0.3 10^3/uL (0-0.7); Absolute Immature Granulocytes 0.1 10^3/uL (0-0.05); Absolute Lymphocytes 1.6 10^3/uL (1.2-3.4); Absolute Monocytes 2.6 10^3/uL (0.1-0.6); Absolute Neutrophils 9.6 10^3/uL (1.4-6.5); Hematocrit 23.8 % (39.0-52.0); Hemoglobin 7.9 g/dL (13.0-18.0); Mean Corp Hgb Conc. 33.2 g/dL (33.0-37.0); Mean Corpuscular Hgb 30.6 pg (27.0-31.0); Mean Corpuscular Volume 92.2 fL (80.0-94.0); Mean Platelet Volume 10.4 fL (7.4-10.4); Nucleated Red Blood Cells % 1.3 % (-); Platelet Count 229 10^3/uL (130-400); Red Blood Cell Count 2.58 10^6/uL (4.70-6.10); Red Cell Dist. Width 15.9 % (11.5-14.5); White Blood Cell Count 14.3 10^3/uL (4.8-10.8)
[2024-10-19 05:51] LABS: Blood Urea Nitrogen 25 mg/dl (9-20); Calcium 7.6 mg/dl (8.4-10.2); Carbon Dioxide 25 mmol/L (22-30); Chloride 105 mmol/L (98-107); Estimated Creatinine Clearance 73 ml/min; Glucose 88 mg/dl (70-99); Magnesium 1.8 mg/dl (1.6-2.3); Phosphorus 4.4 mg/dl (2.5-4.5); Potassium 3.7 mmol/L (3.5-5.1); Sodium 136 mmol/L (135-145); eGFR > 60.00
[2024-10-19] MEDS: SPIRIVA RESPIMAT 2.5 MCG 2 PUFF INH (07:28)
[2024-10-19] MEDS: SYMBICORT 80/4.5 MCG INHALER 2 PUFF INH ×2 (07:28→20:10)
--- NOTE | 2024-10-19 08:25 | PTCARENOTE ---
Assumed care of pt at 0715 following shift report. Pt awake and resting quietly in bed, in room. Pt denies c/o pain or SOB. POx 95% on O2 at 2l/min. Pt reports finishing colonoscopy prep- empty cup at bedside. Physical assessment completed as
documented. Comfort care provided. Pt NPO. Call hernandez w/in pt reach. Pt ambulating independently in room.
[2024-10-19] MEDS: CLARITIN 10 MG PO (08:35)
[2024-10-19] MEDS: DALIRESP 500 MCG PO (08:35)
[2024-10-19] MEDS: LIPITOR 40 MG PO (08:35)
[2024-10-19] MEDS: PACERONE 200 MG PO (08:35)
[2024-10-19] MEDS: ProAmatine PO ×3 (08:35→18:11)
--- NOTE | 2024-10-19 11:10 | PTCARENOTE ---
Pt noted to be having dark liquid stools. GI lab notified of findings.
--- NOTE | 2024-10-19 11:34 | CM ---
CM following re: discharge planning.
Reviewed pt's chart, met with pt.
Per chart review, colonoscopy today.
Pt lives with spouse 2SH, 1 step to enter, has 2 supportive children and pt is independent in all areas [employer]YOR.
D/C plan: home with anticipated no VN after care needs. Spouse to transport at discharge.
CM will follow with discharge plan updates as needed
--- NOTE | 2024-10-19 11:40 | PTCARENOTE ---
Pt to GI lab via stretcher. Family in room. No changes or new complaints prior to transfer
--- NOTE | 2024-10-19 12:12 | W.PN.UPDATE ---
Update Note
Progress Note Update
Colonoscopy aborted due to poor prep, dark brown stool throughout.
Discussed with patient post-op, he would like to drink another prep and attempt colonoscopy again tomorrow.
New prep orders placed, clear liquid diet, NPO after midnight.
--- NOTE | 2024-10-19 12:25 | PN.CDI ---
CDI
- -
CDI:
Physician Documentation Request
Admit Date: 10/16/24 12:48
Dear Doctor ,
Please review the following and provide your response in the progress notes.
Clinical Indicators:
Pt admitted with UGIB/ ABLA
Documented per ED,' Given patient's instability will treat with Kcentra to reverse Eliquis as he did take the Eliquis this morning. Will also treat with Protonix bolus and infusion. Patient consented for blood products. 3 units of packed red
blood cells ordered....'
Documented per H&P, ' # Acute blood loss anemia/hemorrhagic shock secondary to upper GI bleeding on Eliquis..'
Progress notes 10/17 & 10/18, ' Given Kcentra in the ED, holding home Eliquis....'
Please clarify the relationship between these conditions:
Yes, _ABLA/ GI Bleed __ is related to/associated with/exacerbated by Eliquis use___.
No, _ABLA /GI bleed __ is not related to/associated with/exacerbated by Eliquis use ___ but it is due to ___. (Please specify)
Other ( please specify)
Use of terms such as suspected, likely, concern for, or probable (associated with a specific diagnosis that is being evaluated, monitored, or treated as if it exists) are acceptable and can be coded in the inpatient setting, when documented at the
time of discharge.
Thank you,
Carie Mcclelland RN
CDI Specialist
[place] [employer]
Please use your independent medical judgment in providing your response.
--- NOTE | 2024-10-19 12:44 | PTCARENOTE ---
Pt returned to room. Pt ambulated from stretcher to bed. Gait steady. Pt agitated and verbalized anger and frustration about being unable to complete colonoscopy and talking about leaving AMA. and family member at bedside. Clear liquid diet
order noted and pt provided w/ seullen anjana and menu w/ phone. Dr Saxena notified via TT of pt's frustration and threat to leave AMA.
--- NOTE | 2024-10-19 13:04 | PTCARENOTE ---
Dr Buckley updated via TT of pt's frustration and threat to leave AMA.
--- NOTE | 2024-10-19 13:29 | W.PN.UPDATE ---
Update Note
Progress Note Update
Pt not clear for colonoscopy I discussesd options. Pt agreeable for repeat colyte prep til 5 am and another attempt tomorrow. Family agreeable with plan if neg consider capsule
--- NOTE | 2024-10-19 13:50 | PTCARENOTE ---
Pt less agitated and no longer talking about leaving AMA. Agreeable to another prep tonight following visit from Phyllis MAC. Resting quietly in bed watching TV and napping. Family gone home at this time.
[2024-10-19] MEDS: PROTONIX 40 MG PO (13:58)
--- NOTE | 2024-10-19 15:03 | W.PN.HOSP.TC ---
Today's Communication/Plan
-
Plan for colonoscopy today, follow-up results
Assessment / Plan
Assessment / Plan
Gen-AAOx3, NAD
HEENT-NC, AT, anicteric, clear oral mm
Neck-supple
CV-reg, no M, +S1/S2
Lungs-clear B/L
Abd-soft, NT, ND
Musculoskeletal-no edema, no deformity
Skin-warm and dry
Neuro-grossly non-focal
Psych-calm, cooperative
Patient is a 74-year-old male with medical history of duodenal ulcer (status post clipping), HFrEF, and A-fib (on Eliquis, status post cardioversion) who presented with generalized fatigue and multiple episodes of bowel movements with melena. His
initial hemoglobin was 4 but has responded well to transfusions, has been transfused a total of 4 units packed red blood cells. Given Kcentra in the ED, holding home Eliquis.
GI bleed:
-No source of bleeding identified on upper endoscopy 10/17, planning colonoscopy today 10/19
-Was transfused another unit of PRBCs yesterday 10/18 as hemoglobin was slowly drifting down (now total of 4 units transfused)
-Continue holding home Eliquis for now
-Outpatient follow-up with EP to consider Watchman device
-Continue IV PPI drip
-Will follow-up further recommendations from GI following colonoscopy
Acute blood loss anemia:
-Secondary to GI bleeding, exacerbated by anticoagulation with Eliquis
-Continue holding Eliquis for now
-Transfused total of 4 units PRBCs so far this admission, hemoglobin currently stable
-No evidence currently of ongoing bleeding
-Will monitor hemoglobin and transfuse further as needed
-GI workup as above
Pulmonary nodules: Noted on previous outpatient imaging, will need close outpatient follow-up
CODE STATUS: Full code
Anticipated Discharge: 24 - 48 hours
Subjective/Interval History
-
Date of Service: October 19, 2024
Mr. Perez was seen and examined at bedside this morning. He tolerated bowel prep overnight and is awaiting colonoscopy today. He feels generally well today with only mild abdominal discomfort.
Objective Data
-
Labs:
Laboratory Results
10/19/24
05:03
WBC 14.3 H
Hgb 7.9 L
Hct 23.8 L
Plt Count 229
Sodium 136
Potassium 3.7
Chloride 105
Carbon Dioxide 25
BUN 25 H
Creatinine 1.0
Glucose 88
Calcium 7.6 L
Vital Signs:
Vital Signs
Temp Pulse Resp BP Pulse Ox
98.5 F 87 18 116/97 94
10/19/24 11:05 10/19/24 14:00 10/19/24 07:32 10/19/24 13:00 10/19/24 11:25
I&O
10/18/24 10/19/24 10/20/24
06:59 06:59 06:59
Intake Total 1072 / 1082 1220 / 1220 0 / 0
Output Total 1500 / 1700 600 / 600
Balance -428 / -618 620 / 620 0 / 0
Review of Systems
-
All other systems: Reviewed and negative
Physical Exam
-
General: No Apparent Distress
[2024-10-19] MEDS: NULYTELY SOLUTION 4 LITERS PO (17:23)
--- NOTE | 2024-10-19 17:33 | PTCARENOTE ---
Bowel prep started
--- NOTE | 2024-10-19 20:53 | PTCARENOTE ---
assumed care, AAOx3, able to make needs known, ambulatory in the room, denies pain, Sinus on the monitor c PVCs and BBB, + pulses, SCDS refused because pt is constantly up using the bathroom, expiatory wheeze posteriorly, diminished and coarse
throughout, SpO2 95% 2L, BSx4 hyperactive, BRP pt reports clear to yellow urine, skin dry and intact c B/L ecchymosis to upper extremities, 18G L wrist, 18G LAC, call hernandez within in reach, pt can make needs known, otherwise refer to documentation.
[2024-10-20 04:33] LABS: % Basophils 0.2 % (0-2); % Eosinophils 1.2 % (0-6); % Immature Granulocytes 0.4 % (0-0.5); % Lymphocytes 9.6 % (20.5-51.1); % Monocytes 16.8 % (1.7-9.3); % Neutrophils 71.8 % (42.2-75.2); Absolute Eosinophils 0.2 10^3/uL (0-0.7); Absolute Immature Granulocytes 0.1 10^3/uL (0-0.05); Absolute Lymphocytes 1.3 10^3/uL (1.2-3.4); Absolute Monocytes 2.3 10^3/uL (0.1-0.6); Absolute Neutrophils 9.8 10^3/uL (1.4-6.5); Hematocrit 24.1 % (39.0-52.0); Hemoglobin 7.9 g/dL (13.0-18.0); Mean Corp Hgb Conc. 32.8 g/dL (33.0-37.0); Mean Corpuscular Hgb 30.6 pg (27.0-31.0); Mean Corpuscular Volume 93.4 fL (80.0-94.0); Mean Platelet Volume 10.8 fL (7.4-10.4); Nucleated Red Blood Cells % 0.9 % (-); Platelet Count 297 10^3/uL (130-400); Red Blood Cell Count 2.58 10^6/uL (4.70-6.10); Red Cell Dist. Width 15.7 % (11.5-14.5); White Blood Cell Count 13.7 10^3/uL (4.8-10.8)
[2024-10-20 04:38] VITALS: BP 100/50; BMI 28.3
[2024-10-20 04:51] LABS: Blood Urea Nitrogen 14 mg/dl (9-20); Calcium 7.5 mg/dl (8.4-10.2); Carbon Dioxide 26 mmol/L (22-30); Chloride 104 mmol/L (98-107); Estimated Creatinine Clearance 92 ml/min; Glucose 90 mg/dl (70-99); Magnesium 1.8 mg/dl (1.6-2.3); Phosphorus 3.4 mg/dl (2.5-4.5); Potassium 3.8 mmol/L (3.5-5.1); Sodium 137 mmol/L (135-145); eGFR > 60.00
[2024-10-20 07:20] VITALS: BP 93/54
[2024-10-20] MEDS: SYMBICORT 80/4.5 MCG INHALER 2 PUFF INH (07:47)
[2024-10-20] MEDS: SPIRIVA RESPIMAT 2.5 MCG 2 PUFF INH (07:47)
[2024-10-20] MEDS: PACERONE 200 MG PO (08:38)
[2024-10-20] MEDS: LIPITOR 40 MG PO (08:39)
[2024-10-20] MEDS: PROTONIX 40 MG PO (08:39)
[2024-10-20] MEDS: ProAmatine 10 MG PO ×2 (08:39→12:42)
[2024-10-20] MEDS: DALIRESP 500 MCG PO (08:39)
[2024-10-20 11:20] VITALS: BP 102/45
--- NOTE | 2024-10-20 13:29 | W.DCSUMMARY ---
Discharge Summary
Discharge Data
Date of Admission: 10/16/24
Date of Discharge: 10/20/24
-
Pending Results: No
Hospital Course
Mr. Perez is a 74-year-old male with medical history of duodenal ulcer (status post clipping), HFrEF, and A-fib (on Eliquis, status post cardioversion) who presented with generalized fatigue and multiple episodes of bowel movements with melena.
His initial hemoglobin was 4 but has responded well to transfusions, has been transfused a total of 4 units packed red blood cells. Given Kcentra in the ED. Home Eliquis was held during this admission. He underwent upper endoscopy on 10/17 with no
source of bleeding identified. He underwent colonoscopy initially on 10/19 although due to poor bowel prep and needed to be repeated on 10/20. Colonoscopy on 10/20 which showed diffuse diverticulosis involving the sigmoid, descending, and ascending
colon. Colonoscopy also showed nonbleeding internal hemorrhoids and a few areas of superficial ulcers in the ascending colon. Biopsies were taken and results are pending. His hemoglobin is now stable. It is okay to restart anticoagulation,
however he should follow-up with cardiology/EP for consideration of Watchman device implantation. He is advised to discontinue anticoagulation in case of rebleeding. He should follow-up with GI in the outpatient clinic. Patient also follow-up
with his PCP for repeat blood work in 1 week to monitor his hemoglobin levels.
Discharge Plan
-
Patient Disposition: Home (Routine Discharge)
Discharge Diagnosis/Procedures: GI bleeding, acute blood loss anemia requiring transfusions
Diet: Regular
Activity Restrictions/Additional Instructions:
Mr. Perez is a 74-year-old male with medical history of duodenal ulcer (status post clipping), HFrEF, and A-fib (on Eliquis, status post cardioversion) who presented with generalized fatigue and multiple episodes of bowel movements with melena.
His initial hemoglobin was 4 but has responded well to transfusions, has been transfused a total of 4 units packed red blood cells. Given Kcentra in the ED. Home Eliquis was held during this admission. He underwent upper endoscopy on 10/17 with no
source of bleeding identified. He underwent colonoscopy initially on 10/19 although due to poor bowel prep and needed to be repeated on 10/20. Colonoscopy on 10/20 which showed diffuse diverticulosis involving the sigmoid, descending, and ascending
colon. Colonoscopy also showed nonbleeding internal hemorrhoids and a few areas of superficial ulcers in the ascending colon. Biopsies were taken and results are pending. His hemoglobin is now stable. It is okay to restart anticoagulation,
however he should follow-up with cardiology/EP for consideration of Watchman device implantation. He is advised to discontinue anticoagulation in case of rebleeding. He should follow-up with GI in the outpatient clinic. Patient also follow-up
with his PCP for repeat blood work in 1 week to monitor his hemoglobin levels.
Referrals:
Jac Golden MD [Active] - in two to four weeks
Joseph Aj MD [Family Provider] -
Azul Saxena DO [Active] -
Prescriptions:
Continued
atorvastatin 40 MG tablet
40 mg PO DAILY
albuterol sulfate 1 PUFF HFA aerosol inhaler
1 puff inhalation R Q4HPRN PRN (Reason: asthma)
albuterol sulfate 2.5 MG/3 ML solution for nebulization
2.5 mg inhalation R BID
roflumilast [Daliresp] 500 MCG tablet
500 mcg PO DAILY
multivitamin with folic acid [Tab-A-Silvano] 1 TABLET tablet
1 tab PO DAILY
Trelegy Ellipta 100-62.5-25 mcg Blister With Device
1 inh INHALATION R DAILY
fexofenadine 180 mg Tablet
180 mg PO Q48H
amiodarone [Pacerone] 200 mg tablet
200 mg PO DAILY
acetaminophen 325 mg Tablet
650 mg PO Q6HPRN PRN (Reason: mild pain)
esomeprazole magnesium [Nexium] 20 mg Capsule,Delayed Release(Dr/Ec)
20 mg PO DAILY
midodrine 5 mg tablet
10 mg PO TID
carvedilol 6.25 mg tablet
6.25 mg PO BID
aspirin 81 MG tablet,delayed release (DR/EC)
81 mg PO DAILY
Eliquis 5 mg tablet
5 mg PO BID
Discharge Orders:
Discharge Patient (As Directed); Ordered 10/20/24
Ordered By: Gilson Buckley
Discharge Date and Time
Print Language: HONDURAN
--- NOTE | 2024-10-20 13:29 | W.PN.HOSP.TC ---
Today's Communication/Plan
-
Assessment / Plan
Assessment / Plan
Gen-AAOx3, NAD
HEENT-NC, AT, anicteric, clear oral mm
Neck-supple
CV-reg, no M, +S1/S2
Lungs-clear B/L
Abd-soft, NT, ND
Musculoskeletal-no edema, no deformity
Skin-warm and dry
Neuro-grossly non-focal
Psych-calm, cooperative
Patient is a 74-year-old male with medical history of duodenal ulcer (status post clipping), HFrEF, and A-fib (on Eliquis, status post cardioversion) who presented with generalized fatigue and multiple episodes of bowel movements with melena. His
initial hemoglobin was 4 but has responded well to transfusions, has been transfused a total of 4 units packed red blood cells. Given Kcentra in the ED, holding home Eliquis.
GI bleed:
-No source of bleeding identified on upper endoscopy 10/17, colonoscopy on 10/19 was aborted due to poor prep and will be repeated today 10/20
-Was transfused another unit of PRBCs 10/18 as hemoglobin was slowly drifting down (now total of 4 units transfused)
-Continue holding home Eliquis for now
-Outpatient follow-up with EP to consider Watchman device
-Continue PPI
-Will follow-up further recommendations from GI following colonoscopy
Acute blood loss anemia:
-Secondary to GI bleeding, exacerbated by anticoagulation with Eliquis
-Continue holding Eliquis for now
-Transfused total of 4 units PRBCs so far this admission, hemoglobin currently stable
-No evidence currently of ongoing bleeding
-Will monitor hemoglobin and transfuse further as needed
-GI workup as above
Pulmonary nodules: Noted on previous outpatient imaging, will need close outpatient follow-up
CODE STATUS: Full code
Anticipated Discharge: Today
Subjective/Interval History
-
Date of Service: October 20, 2024
Mr. Perez was seen and examined at this morning. He is frustrated about having to repeat his colonoscopy today.
Objective Data
-
Labs:
Laboratory Results
10/20/24
03:45
WBC 13.7 H
Hgb 7.9 L
Hct 24.1 L
Plt Count 297 D
Sodium 137
Potassium 3.8
Chloride 104
Carbon Dioxide 26
BUN 14
Creatinine 0.8
Glucose 90
Calcium 7.5 L
Vital Signs:
Vital Signs
Temp Pulse Resp BP Pulse Ox
97.8 F 88 16 106/49 94
10/20/24 11:20 10/20/24 12:42 10/20/24 11:20 10/20/24 12:42 10/20/24 11:20
I&O
10/19/24 10/20/24 10/21/24
06:59 06:59 06:59
Intake Total 1220 / 1220 2400 / 2400
Output Total 600 / 600
Balance 620 / 620 2400 / 2400
Review of Systems
-
History Source: Patient
All other systems: Reviewed and negative
Physical Exam
-
General: No Apparent Distress
--- NOTE | 2024-10-20 14:34 | CM ---
For discharge today
Pt discharged before seeing CM
Plan - home no needs
== END 2024-10-20 13:56 | disposition home or self-care (01) | DRG 377 ==
LOC: 2 SOUTH 12:48
PROVIDERS: Nurse Practitioner Family; Nurse Practitioner Primary Care; Physician Assistant Medical; ADMITTING PHYSICIAN Hospitalist; ATTENDING PHYSICIAN Internal Medicine; CONSULT PHYSICIAN Internal Medicine; EMERGENCY PHYSICIAN Student in an Organized Health Care Education/Training Program; FAMILY PHYSICIAN Family Medicine; OTHER PHYSICIAN Internal Medicine
PROC: 30233N1 Transfusion of Nonautologous Red Blood Cells into Peripheral Vein, Percutaneous Approach (ICD-10-PCS; 2024-10-16)
PROC: 0DB98ZX Excision of Duodenum, Via Natural or Artificial Opening Endoscopic, Diagnostic (ICD-10-PCS; 2024-10-17)
PROC: 0DJD8ZZ Inspection of Lower Intestinal Tract, Via Natural or Artificial Opening Endoscopic (ICD-10-PCS; 2024-10-19)
PROC: 0DBG8ZX Excision of Left Large Intestine, Via Natural or Artificial Opening Endoscopic, Diagnostic (ICD-10-PCS; 2024-10-20)
DX: K57.31 Diverticulosis of large intestine without perforation or abscess with bleeding (principal); R57.8 Other shock; D62 Acute posthemorrhagic anemia; I50.22 Chronic systolic (congestive) heart failure; N17.9 Acute kidney failure, unspecified; J96.11 Chronic respiratory failure with hypoxia; K63.3 Ulcer of intestine; D68.32 Hemorrhagic disorder due to extrinsic circulating anticoagulants; I11.0 Hypertensive heart disease with heart failure; I25.10 Atherosclerotic heart disease of native coronary artery without angina pectoris; I48.0 Paroxysmal atrial fibrillation; I35.0 Nonrheumatic aortic (valve) stenosis; I95.1 Orthostatic hypotension; E78.00 Pure hypercholesterolemia, unspecified; J44.89 Other specified chronic obstructive pulmonary disease; K44.9 Diaphragmatic hernia without obstruction or gangrene; K31.7 Polyp of stomach and duodenum; K64.8 Other hemorrhoids; K64.4 Residual hemorrhoidal skin tags; K63.5 Polyp of colon; T45.515A Adverse effect of anticoagulants, initial encounter; K21.9 Gastro-esophageal reflux disease without esophagitis; E66.9 Obesity, unspecified; Z87.11 Personal history of peptic ulcer disease; Z68.29 Body mass index [BMI] 29.0-29.9, adult; Z99.81 Dependence on supplemental oxygen; Z96.652 Presence of left artificial knee joint; Z95.5 Presence of coronary angioplasty implant and graft; Z90.81 Acquired absence of spleen; Z87.891 Personal history of nicotine dependence; Z86.16 Personal history of COVID-19; Z85.820 Personal history of malignant melanoma of skin; Z79.899 Other long term (current) drug therapy; Z79.82 Long term (current) use of aspirin; Z79.01 Long term (current) use of anticoagulants
CPT/HCPCS: 88305; 36415; 71045; 80048; 80053; 82607; 82728; 82746; 83540; 83550; 83735; 84100; 84443; 84484; 85014; 85018; 85025; 85610; 85730; 86850; 86900; 86901; 86920; 93005; 94640; 96360; 99291; J7168; P9016

== ENCOUNTER 2025-01-02 13:25 | Inpatient (IN) | payer MEDICARE, OTHER, SELFPAY ==
[2025-01-02] VITALS (7 sets, daily range): BP systolic 82–106; BP diastolic 42–69; PULSE 78–94; BMI 29.6
--- NOTE | 2025-01-02 12:01 | ED.GENMED ---
History of Present Illness
<Chu Schmidt PA-C - Last Filed: 01/02/25 13:18>
General
Chief Complaint: Rectal Bleeding
Source: patient, records and spouse
Time Seen by Provider: 01/02/25 11:53
History of Present Illness
History of Present Illness:
74-year-old male with past medical history of COPD, atrial fibrillation, CHF, CAD, previous upper GI bleeding presenting to the emergency department for evaluation of black stools, fatigue and generalized weakness, similar to previous episodes of GI
bleeding requiring hospitalization and multiple transfusions this past October. Patient reports that during this admission he had both upper and lower endoscopy which did not yield any pathologies. Patient was discharged home on iron, states that
been compliant with this up until the last few days when he thought maybe the iron is what was causing his stools to be dark but states that this stopping the iron his stools remain black. Patient denies any fevers, chills, rigors, abdominal pain,
nausea, vomiting/hematemesis, chest pain or shortness of breath. Social history was noncontributory.
Past History
<Chu Schmidt PA-C - Last Filed: 01/02/25 13:18>
Past History
ED Past Medical History: Asthma, CAD, CHF, COPD, [place] and Other (Gastric ulcer, lower GI bleed, melanoma of the right eye, renal insufficiency, Diverticulitis with abscess)
ED Past Surgical History: Cardiac (Stent X1), Orthopedic and Other (Splenectomy)
Social History
Tobacco: Former smoker
Alcohol: Occasional
Drug: None
Personal:
Living: with family
Employment: Employed
Family History
Family History: Other (Noncontributory)
Review of Systems
<Chu Schmidt PA-C - Last Filed: 01/02/25 13:18>
Review of Systems
All Other Systems: ROS reviewed and negative except as documented in HPI and ROS
Phy Exam
<Chu Schmidt PA-C - Last Filed: 01/02/25 13:18>
Physical Exam
Physical Exam:
GENERAL: Alert , in no apparent distress
EYE: clear conjunctiva b/l
HEAD: NCAT
ENT: mmm.
CARDIAC: Regular rate and rhythm .
LUNGS: Clear breath sounds bilaterally, no acute respiratory distress, no wheezes/rales/rhonchi
ABDOMEN: Soft, without focal tenderness, no r/g, no cvat
RECTAL EXAM: Chaperoned by ED nurse Mark, black stool, heme positive
NEUROLOGICAL: Alert and oriented
SKIN: Warm and dry, skin intact.
MUSCULOSKELETAL: well perfused.
PSYCH: Normal and appropriate interaction.
Scores
<Chu Schmidt PA-C - Last Filed: 01/02/25 13:18>
Heart Failure Risk
Heart Failure Risk Score: Not Applicable
Heart Score for Chest Pain Patients
STEMI patient?: Not applicable
Withdrawal Assessment of Alcohol
Withdrawal Assessment Completed?: Not applicable
Course
<Chu Schmidt PA-C - Last Filed: 01/02/25 13:18>
Orders/Labs/Results
Orders:
Orders
01/02/25 12:00
Electrocardiogram (*1) Stat
Reason for Study: Other
Other Reason for Exam: GI Bleed
EKG- Treatment ONCE
IV Insert/Care/Rem.- Treatment PRN
Pantoprazole [Protonix IV] 80 mg IV NOW STA
01/02/25 12:08
Type+Screen Urgent
Complete Blood Count/With Diff Urgent
Comprehensive Metabolic Panel Urgent
PTT Urgent
Prothrombin Time Urgent
01/02/25 12:58
Admit/Transfer Patient As Directed
Co-Sign Provider:
Level of Care: Inpatient admission
Assign to:: Telemetry
Physician / Group: fazal gerard
Diagnosis: GI bleed
Reason for Telemetry: Arrhythmia
Date to Stop Telemetry: 01/05/25
Time to Stop Telemetry: 11:00
Reason for Hospitalization: GI bleed
Expected length of stay greater than two midnights?: Yes
ELOS- Estimated Length of Stay in days: 3
I certify the patient meets the requirements for IP care: Yes
01/02/25 12:59
PRN Pain Medication Management As Directed
May give lesser potent ordered pain med per pt: Yes
preference::
Protocol:: Medication orders for pain may be administered in a
manner that supports deferring to patient preference
when the pt is:
- Requesting an ordered lesser potent pain medication.
Least to most potent pain medications are defined
as: acetaminophen < NSAID < tramadol < opioids
(morphine, oxycodone, hydromorphone).
- Requesting a lesser dose of the same medication IF
ORDERED.
- Requesting a less intrusive route of administration
if both routes are prescribed by the provider (PO <
IV).
01/02/25 13:00
Code Status As Directed
Resuscitation Status: Full Code
01/05/25 11:00
DC Protocol for Telemetry ONCE
Abnormal Lab Results
01/02/25
12:08
RBC 2.62 L 10^6/uL
(4.70-6.10)
Hgb 8.0 L g/dL
(13.0-18.0)
Hct 26.1 L %
(39.0-52.0)
MCV 99.6 H fL
(80.0-94.0)
MCHC 30.7 L g/dL
(33.0-37.0)
RDW 17.0 H %
(11.5-14.5)
Abs Immat Gran (auto) 0.1 H 10^3/uL
(0-0.05)
Absolute Neuts (auto) 7.0 H 10^3/uL
(1.4-6.5)
Absolute Monos (auto) 1.2 H 10^3/uL
(0.1-0.6)
Immature Gran % 0.6 H %
(0-0.5)
Lymphocytes % 15.6 L %
(20.5-51.1)
Monocytes % 11.5 H %
(1.7-9.3)
PT 19.1 H Sec
(11.4-14.6)
APTT 36.0 H Sec
(23.4-35.0)
BUN 35 H mg/dl
(9-20)
Creatinine 1.4 H mg/dL
(0.7-1.3)
Glucose 111 H mg/dl
(70-99)
Total Protein 5.9 L g/dl
(6.3-8.2)
01/02/25 12:08
01/02/25 12:08
Vital Signs
Initial and Last Documented VS:
Initial Vital Signs
Temp Pulse Resp BP Pulse Ox
97.7 F 79 18 92/50 93
01/02/25 11:43 01/02/25 11:43 01/02/25 11:43 01/02/25 11:43 01/02/25 11:43
Last Documented Vital Signs
Temp Pulse Resp BP Pulse Ox
97.7 F 74 23 92/50 95
01/02/25 11:43 01/02/25 12:45 01/02/25 12:45 01/02/25 11:43 01/02/25 12:38
<Reed Redd MD - Last Filed: 01/02/25 12:59>
Orders/Labs/Results
Orders:
Orders
01/02/25 12:00
Electrocardiogram (*1) Stat
Reason for Study: Other
Other Reason for Exam: GI Bleed
EKG- Treatment ONCE
IV Insert/Care/Rem.- Treatment PRN
Pantoprazole [Protonix IV] 80 mg IV NOW STA
01/02/25 12:08
Type+Screen Urgent
Complete Blood Count/With Diff Urgent
Comprehensive Metabolic Panel Urgent
PTT Urgent
Prothrombin Time Urgent
01/02/25 12:58
Admit/Transfer Patient As Directed
Co-Sign Provider:
Level of Care: Inpatient admission
Assign to:: Telemetry
Physician / Group: fazal gerard
Diagnosis: GI bleed
Reason for Telemetry: Arrhythmia
Date to Stop Telemetry: 01/05/25
Time to Stop Telemetry: 11:00
Reason for Hospitalization: GI bleed
Expected length of stay greater than two midnights?: Yes
ELOS- Estimated Length of Stay in days: 3
I certify the patient meets the requirements for IP care: Yes
01/02/25 12:59
PRN Pain Medication Management As Directed
May give lesser potent ordered pain med per pt: Yes
preference::
Protocol:: Medication orders for pain may be administered in a
manner that supports deferring to patient preference
when the pt is:
- Requesting an ordered lesser potent pain medication.
Least to most potent pain medications are defined
as: acetaminophen < NSAID < tramadol < opioids
(morphine, oxycodone, hydromorphone).
- Requesting a lesser dose of the same medication IF
ORDERED.
- Requesting a less intrusive route of administration
if both routes are prescribed by the provider (PO <
IV).
01/02/25 13:00
Code Status As Directed
Resuscitation Status: Full Code
01/05/25 11:00
DC Protocol for Telemetry ONCE
Abnormal Lab Results
01/02/25
12:08
RBC 2.62 L 10^6/uL
(4.70-6.10)
Hgb 8.0 L g/dL
(13.0-18.0)
Hct 26.1 L %
(39.0-52.0)
MCV 99.6 H fL
(80.0-94.0)
MCHC 30.7 L g/dL
(33.0-37.0)
RDW 17.0 H %
(11.5-14.5)
Abs Immat Gran (auto) 0.1 H 10^3/uL
(0-0.05)
Absolute Neuts (auto) 7.0 H 10^3/uL
(1.4-6.5)
Absolute Monos (auto) 1.2 H 10^3/uL
(0.1-0.6)
Immature Gran % 0.6 H %
(0-0.5)
Lymphocytes % 15.6 L %
(20.5-51.1)
Monocytes % 11.5 H %
(1.7-9.3)
PT 19.1 H Sec
(11.4-14.6)
APTT 36.0 H Sec
(23.4-35.0)
BUN 35 H mg/dl
(9-20)
Creatinine 1.4 H mg/dL
(0.7-1.3)
Glucose 111 H mg/dl
(70-99)
Total Protein 5.9 L g/dl
(6.3-8.2)
01/02/25 12:08
01/02/25 12:08
Vital Signs
Initial and Last Documented VS:
Initial Vital Signs
Temp Pulse Resp BP Pulse Ox
97.7 F 79 18 92/50 93
01/02/25 11:43 01/02/25 11:43 01/02/25 11:43 01/02/25 11:43 01/02/25 11:43
Last Documented Vital Signs
Temp Pulse Resp BP Pulse Ox
97.7 F 74 23 92/50 95
01/02/25 11:43 01/02/25 12:45 01/02/25 12:45 01/02/25 11:43 01/02/25 12:38
<Chu Schmidt PA-C - Last Filed: 01/02/25 13:18>
MDM/Problems Addressed
Differential Diagnosis Includes:
Upper versus lower GI bleed although suspect small bowel pathology given recent unremarkable upper and lower endoscopies, anemia, renal dysfunction
MDM/Problems Addressed:
74-year-old male presenting to the emergency department for evaluation of black stools and increasing fatigue over the last few days, recent admission here in October for the same. Exam here shows just black stool that is heme positive. Patient's
initial blood pressure on arrival noted to be hypotensive, repeat during my exam still shows hypotension but slightly improved at 105/50. 2 IVs placed. Patient did take his Eliquis this morning, will hold on reversing at this time unless patient
starts to have further bleeding or further signs of hypotension. Protonix bolus ordered. Plan for admission. Patient will need consult with GI and cardiology. Will consent for blood.
Chronic conditions affecting care: Arrhythmia and Other (Previous GI bleeding)
Acute Exacerbation and/or Progression of Chronic Illness: Arrhythmia and Other (Previous GI bleed)
<Chu Schmidt PA-C - Last Filed: 01/02/25 13:18>
*Pulse Oximetry
Patient hypoxic: no
*Door Serviceman Interpretation
Rate: normal
Rhythm: sinus
*Critical Care Note
Total Time (30-74mins, 75-104mins- exclusive of procedures): Not Applicable
Data Reviewed
Review of Other/Old Records Reveals: Labs, Records, Testing and Discharge Summary
Source: patient, records and spouse
<Chu Schmidt PA-C - Last Filed: 01/02/25 13:18>
Patient Management
Discussion with other providers: Hospitalist and Construction Project Manager
Escalation/DeEscalation of care consider admission/obs:
Patient's hemoglobin is 8, 7.9 at discharge in October. He does have a mild JESSICA which could be related to the bleeding. I notified both GI for consult as well as hospitalist team who accepts patient for continued evaluation and treatment.
ED Attending Note
<Chu Schmidt PA-C - Last Filed: 01/02/25 13:18>
-
Portions of this chart may have been created with voice recognition software.� Occasional wrong word or��sound alike� substitutions may have occurred due to the inherent limitations of voice recognition software.
<Reed Redd MD - Last Filed: 01/02/25 12:59>
ED Attending Note
Patient seen and examined by attending physician: Yes
ED Attending Note:
I have seen and evaluated the patient with a [id number] encounter. I have spoken to the advance practicer provider and involved in the medical history, the physical exam, medical decision making.
Evaluation and management service: agree unless noted differently below.
Results interpretation: agree unless noted differently below.
Focused HPI: 74-year-old male with history as documented notable for A-fib on Eliquis, recent admission in October for GI bleeding unclear source who presents to the emergency department for evaluation of dark stools and fatigue. Patient reports
that over the past few days he has noticed black stools he estimates 1-2 episodes daily. He says he has had significant fatigue/lack of energy. Mild shortness of breath. Mild lightheadedness. Came to the ER for assessment. He is on Eliquis and
reports last dose was this morning.
Physical exam: Awake alert no distress. Mildly pale. Soft blood pressure otherwise normal vitals. Black stool heme positive on rectal exam per PA.
Medical Decision Makin-year-old male presents with fatigue and dark stools. Recent history of GI bleeding in October. Hemoglobin 8 which is stable from discharge value in October. CMP does show elevated BUN. Treat with IV PPI. Hold on
Kcentra with stable patient, stable hemoglobin but will hold Eliquis. Admit for trending of hemoglobin, monitoring of bleeding.
Discharge Plan
Departure
Patient Disposition: Admit
Date of Disposition: 01/02/25
Time of Disposition: 12:38
Presentation/result/management discussed w/ accepting MD/DO: Hospitalist
Discharge Problem:
Acute upper gastrointestinal bleeding, Anemia
Prescriptions:
No Action
atorvastatin 40 MG tablet
40 mg PO DAILY
albuterol sulfate 1 PUFF HFA aerosol inhaler
1 puff inhalation R Q4HPRN PRN (Reason: asthma)
albuterol sulfate 2.5 MG/3 ML solution for nebulization
2.5 mg inhalation R BID
roflumilast [Daliresp] 500 MCG tablet
500 mcg PO DAILY
multivitamin with folic acid [Tab-A-Silvano] 1 TABLET tablet
1 tab PO DAILY
Trelegy Ellipta 100-62.5-25 mcg Blister With Device
1 inh INHALATION R DAILY
fexofenadine 180 mg Tablet
180 mg PO Q48H
amiodarone [Pacerone] 200 mg tablet
200 mg PO DAILY
acetaminophen 325 mg Tablet
650 mg PO Q6HPRN PRN (Reason: mild pain)
esomeprazole magnesium [Nexium] 20 mg Capsule,Delayed Release(Dr/Ec)
20 mg PO DAILY
midodrine 5 mg tablet
10 mg PO TID
carvedilol 6.25 mg tablet
3.125 mg PO BID
aspirin 81 MG tablet,delayed release (DR/EC)
81 mg PO DAILY
Eliquis 5 mg tablet
5 mg PO BID
furosemide 20 mg Tablet
20 mg PO DAILY
Interventions
Interventions:
*Risk Screen - Suicide Last Done: 01/02/25 11:43
*General Assessment Last Done: 01/02/25 11:43
*Neglect/Abuse Screening Last Done: 01/02/25 11:43
*ED COVID-19 Vaccine History Last Done: 01/02/25 13:09
TE-Ubqutc-Ihhdyagkuy Assessment Last Done: 01/02/25 12:35
ED- Cardiac Assessment Last Done: 01/02/25 12:35
ED- Pulmonary Assessment Last Done: 01/02/25 12:35
Discharge Date and Time
Print Language: LITHUANIAN
[2025-01-02] MEDS: PROTONIX IV 80 MG IV (12:12)
[2025-01-02 12:20] LABS: % Basophils 0.8 % (0-2); % Eosinophils 2.2 % (0-6); % Immature Granulocytes 0.6 % (0-0.5); % Lymphocytes 15.6 % (20.5-51.1); % Monocytes 11.5 % (1.7-9.3); % Neutrophils 69.3 % (42.2-75.2); Absolute Basophils 0.1 10^3/uL (0-0.2); Absolute Eosinophils 0.2 10^3/uL (0-0.7); Absolute Immature Granulocytes 0.1 10^3/uL (0-0.05); Absolute Lymphocytes 1.6 10^3/uL (1.2-3.4); Absolute Monocytes 1.2 10^3/uL (0.1-0.6); Hematocrit 26.1 % (39.0-52.0); Mean Corp Hgb Conc. 30.7 g/dL (33.0-37.0); Mean Corpuscular Hgb 30.5 pg (27.0-31.0); Mean Corpuscular Volume 99.6 fL (80.0-94.0); Mean Platelet Volume 10.2 fL (7.4-10.4); Nucleated Red Blood Cells % 0.3 % (-); Platelet Count 368 10^3/uL (130-400); Red Blood Cell Count 2.62 10^6/uL (4.70-6.10); White Blood Cell Count 10.1 10^3/uL (4.8-10.8)
[2025-01-02 12:25] LABS: INR 1.58; PT 19.1 Sec (11.4-14.6)
[2025-01-02 12:29] LABS: ALT (SGPT) 11 U/L (0-50); AST (SGOT) 18 U/L (17-59); Albumin 3.5 g/dl (3.5-5.0); Alkaline Phosphatase 77 U/L (38-126); Blood Urea Nitrogen 35 mg/dl (9-20); Calcium 8.9 mg/dl (8.4-10.2); Carbon Dioxide 30 mmol/L (22-30); Chloride 107 mmol/L (98-107); Glucose 111 mg/dl (70-99); Potassium 4.6 mmol/L (3.5-5.1); Sodium 144 mmol/L (135-145); Total Bilirubin 0.6 mg/dl (0.2-1.3); Total Protein 5.9 g/dl (6.3-8.2)
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
--- NOTE | 2025-01-02 13:08 | W.PN.UPDATE ---
Update Note
Progress Note Update
This note serves as an addendum to the H&P by light equipment operator FERMIN
Lawanda Leonardo
HPI
74-year-old male with medical history of duodenal ulcer (status post clipping), HFrEF, and A-fib (on Eliquis, status post cardioversion) seen at ER:
- evaluation of black stools, fatigue and generalized weakness for past two weeks.
- stopped taking iron pill when he first noticed black stool but black stool persisted.
ROS:
denied abdominal pain, nausea and vomiting. denied fever, chills, chest pain.
chronic sob and wheezing. denied SALGADO, dizzy or syncope.denied dysuria or hematuria.
PHX; see above
Vital Signs
Temp Pulse Resp BP Pulse Ox
97.7 F 79 18 92/50 93
01/02/25 11:43 01/02/25 11:43 01/02/25 11:43 01/02/25 11:43 01/02/25 11:43
PE
Gen: NAD
HEENT: anicteric
Neck: supple
Lungs: CTA
Cor: RRR S1 S2
Abdomen: benign exam
ALVAREZ: HoB POS black stool per ER
REFERRAL NURSE: AAO3 , grossly NFND
MS: no edema
Psych: appropriate
Laboratory Tests
10/20/24 01/02/25
03:45 12:08
WBC 10.1
Hgb 7.9 L 8.0 L
MCV 99.6 H
INR 1.58
BUN 14 35 H
Creatinine 0.8 1.4 H
eGFR > 60.00 53.40
EKG
NORMAL SINUS RHYTHM
RIGHT BUNDLE BRANCH BLOCK
LEFT ANTERIOR FASCICULAR BLOCK
BIFASCICULAR BLOCK
ABNORMAL ECG
WHEN COMPARED WITH ECG OF 16-OCT-2024 12:11,
NO SIGNIFICANT CHANGE WAS FOUND
05/26/24 TTE
LVEF 45% - was 25-30% in 02/27/24
Stage I diastolic dysfunction suggestive of abnormal relaxation.
Normal right ventricular size and function.
Mild MR
Mild - peak/mean gradients across the aortic valve of 28/12 mmHg, AoV area calculated at 1.5
Compared to prior study 02/27/2024 ejection fraction has improved from 25 to 30%
to now 45%. Mild aortic valve stenosis present. PA pressure has improved from 40-45 mmHg to now 35 mmHg. Right ventricle now appears normal.
Last hospitalist admission: 10/16/24 - 10/20/24
DC DXs: GI bleeding, acute blood loss anemia requiring transfusions
ASSESSMENT & PLAN
HoB POS black stool UGIB with borderline hypotension ; Similar HX October requiring transfusion.
Borderline to mildly hypotensive ( 90/50) Not tachycardic : HX Midodrine dependent chr hypotension
Current Hgb 8 and stable : Baseline chr macrocytic anemia with usually Hgbs are in hi 7s
Mildly azotemic
On eliquis due to AF
Coagulopathy ( INR 1.58) suspect due to chr Eliquis
- Blood consented by ER
- T & S
- Trend H & H - Blood Tx goal is less than 7.2 or active GIB
- Gentle IV NS 60/H for 500cc then observe BP
- cont NURSE RN BSN Midodrine 10mg tid
- Hold Eliquis but cont. ASA
- Hold BP Meds due to hypotension such as Carvedilol
- PPI gtt
- GI consult
JESSICA du to hypotension and GI loss
- gentle IVF
- Trend Cr
HX Chr HFrEF with LVEF 45% as of May 2024 which was improved from February 2024
- P Card: Dr Bolanos
- c/w NURSE RN BSN PO Lasix in view of IVF for hypotension
- f/u Wt and
In NSR for HX prox AF
Coagulopathy ( INR 1.58) suspect due to chr Eliquis
- c/w Amiodarone
- Held Eliquis due to acute GIB
- Held BP Meds due to hypotension such as Carvedilol
HX COPD on NC 2 L O2 HS
- stable
- Known to Dr Montoya
DVT Px: SCD
Full code
IP TLM
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
[2025-01-02] MEDS: NSS 500 IV (17:10)
[2025-01-02] MEDS: PROTONIX 100 IV (17:12)
[2025-01-02] MEDS: ProAmatine 10 MG PO (17:12)
--- NOTE | 2025-01-02 17:55 | PTCARENOTE ---
PATIENT REFUSED TO ANSWER SLEEP APNEA QUESTIONS
[2025-01-02 19:01] LABS: Hematocrit 23.5 % (39.0-52.0); Hemoglobin 7.3 g/dL (13.0-18.0)
[2025-01-02] MEDS: VENTOLIN NEBULES 2.5 MG INH (19:31)
[2025-01-03] VITALS (12 sets, daily range): BP systolic 75–118; BP diastolic 38–76; PULSE 64–95; BMI 29.7
[2025-01-03 01:07] LABS: Hematocrit 22.2 % (39.0-52.0)
[2025-01-03] MEDS: PROTONIX 100 IV ×3 (01:44→21:59)
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
[2025-01-03] MEDS: NON-FORMULARY ITEM 100 INH INH (08:21)
[2025-01-03] MEDS: VENTOLIN NEBULES 2.5 MG INH ×2 (08:21→19:15)
[2025-01-03 08:42] LABS: Blood Urea Nitrogen 36 mg/dl (9-20); Calcium 8.3 mg/dl (8.4-10.2); Carbon Dioxide 32 mmol/L (22-30); Chloride 106 mmol/L (98-107); Estimated Creatinine Clearance 49 ml/min; Glucose 101 mg/dl (70-99); Sodium 141 mmol/L (135-145); eGFR 49.16
[2025-01-03 08:48] LABS: Hemoglobin 6.5 g/dL (13.0-18.0); Mean Corpuscular Hgb 30.4 pg (27.0-31.0); Mean Corpuscular Volume 98.1 fL (80.0-94.0); Mean Platelet Volume 10.7 fL (7.4-10.4); Platelet Count 316 10^3/uL (130-400); Red Blood Cell Count 2.14 10^6/uL (4.70-6.10); Red Cell Dist. Width 17.1 % (11.5-14.5); White Blood Cell Count 10.7 10^3/uL (4.8-10.8)
[2025-01-03] MEDS: ASPIR LOW (ENTERIC COATED) 81 MG PO (08:52)
[2025-01-03] MEDS: DALIRESP 500 MCG PO (08:52)
[2025-01-03] MEDS: THERAGRAN 1 TABLET PO (08:54)
[2025-01-03] MEDS: PACERONE 200 MG PO (08:54)
[2025-01-03] MEDS: LIPITOR 40 MG PO (08:54)
[2025-01-03] MEDS: ProAmatine 10 MG PO ×3 (08:54→16:11)
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
--- NOTE | 2025-01-03 15:26 | CM ---
Initial assessment completed
Pharmacy verified: [facility]
Lives in a [place] w/basement with , daugther, and 17 yr old grandson; 2 steps to enter; 11 steps down to basement; railings present; uses stall shower in bathroom
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
DME: Nebulizer, Pulse Oximeter
NO SNF utilization
Plan: discharge to home when medically stable; do not anticipate needs; CM will monitor and provide support if needed
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
[2025-01-03 17:54] LABS: NT-proBNP 304 pg/ml
[2025-01-03 19:01] LABS: Hematocrit 26.8 % (39.0-52.0); Hemoglobin 8.8 g/dL (13.0-18.0)
[2025-01-04] VITALS (12 sets, daily range): BP systolic 90–118; BP diastolic 37–58; BMI 29.8
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
[2025-01-04 07:24] LABS: Hematocrit 24.7 % (39.0-52.0); Mean Corp Hgb Conc. 32.4 g/dL (33.0-37.0); Mean Corpuscular Hgb 30.7 pg (27.0-31.0); Mean Corpuscular Volume 94.6 fL (80.0-94.0); Mean Platelet Volume 10.7 fL (7.4-10.4); Platelet Count 318 10^3/uL (130-400); Red Blood Cell Count 2.61 10^6/uL (4.70-6.10); Red Cell Dist. Width 17.8 % (11.5-14.5); White Blood Cell Count 11.1 10^3/uL (4.8-10.8)
[2025-01-04 07:54] LABS: Blood Urea Nitrogen 33 mg/dl (9-20); Calcium 8.5 mg/dl (8.4-10.2); Carbon Dioxide 28 mmol/L (22-30); Chloride 107 mmol/L (98-107); Estimated Creatinine Clearance 56 ml/min; Glucose 83 mg/dl (70-99); Magnesium 1.8 mg/dl (1.6-2.3); Phosphorus 3.7 mg/dl (2.5-4.5); Potassium 3.9 mmol/L (3.5-5.1); Sodium 142 mmol/L (135-145); eGFR 58.37
[2025-01-04] MEDS: PROTONIX 100 IV ×2 (08:32→19:08)
[2025-01-04] MEDS: NON-FORMULARY ITEM 1 INH INH (08:43)
[2025-01-04] MEDS: VENTOLIN NEBULES 2.5 MG INH ×2 (08:44→20:13)
[2025-01-04] MEDS: ProAmatine 10 MG PO ×3 (08:58→17:03)
[2025-01-04] MEDS: THERAGRAN 1 TABLET PO (08:58)
[2025-01-04] MEDS: LIPITOR 40 MG PO (08:58)
[2025-01-04] MEDS: PACERONE 200 MG PO (08:58)
[2025-01-04] MEDS: DALIRESP 500 MCG PO (08:58)
[2025-01-04] MEDS: ASPIR LOW (ENTERIC COATED) 81 MG PO (08:58)
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
[2025-01-04 13:38] LABS: Hemoglobin 8.3 g/dL (13.0-18.0)
--- NOTE | 2025-01-04 14:38 | CM ---
Chart reviewed home with spouse
Plan; Home with spouse no needs.
[2025-01-04] MEDS: NSS 1000 IV (17:58)
[2025-01-04] MEDS: CHLORASEPTIC/SORE THROAT SPRAY 1 SPRAY PO (18:06)
[2025-01-05 00:51] LABS: Hematocrit 23.8 % (39.0-52.0); Hemoglobin 7.6 g/dL (13.0-18.0)
[2025-01-05 02:44] VITALS: BP 119/60
[2025-01-05 06:00] VITALS: BMI 29.6
[2025-01-05] MEDS: PROTONIX 100 IV (06:01)
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
[2025-01-05 07:00] VITALS: BP 101/63
[2025-01-05] MEDS: NON-FORMULARY ITEM 1 INH INH (07:41)
[2025-01-05] MEDS: VENTOLIN NEBULES 2.5 MG INH (07:43)
[2025-01-05] MEDS: PACERONE 200 MG PO (07:55)
[2025-01-05] MEDS: ASPIR LOW (ENTERIC COATED) 81 MG PO (07:55)
[2025-01-05] MEDS: LIPITOR 40 MG PO (07:55)
[2025-01-05] MEDS: THERAGRAN 1 TABLET PO (07:55)
[2025-01-05] MEDS: ProAmatine 10 MG PO ×2 (07:56→11:24)
[2025-01-05] MEDS: LASIX 20 MG IV (07:56)
[2025-01-05] MEDS: DALIRESP 500 MCG PO (07:59)
[2025-01-05 08:02] LABS: Hematocrit 24.9 % (39.0-52.0); Hemoglobin 7.9 g/dL (13.0-18.0); Mean Corp Hgb Conc. 31.7 g/dL (33.0-37.0); Mean Corpuscular Hgb 30.9 pg (27.0-31.0); Mean Corpuscular Volume 97.3 fL (80.0-94.0); Mean Platelet Volume 10.6 fL (7.4-10.4); Platelet Count 337 10^3/uL (130-400); Red Blood Cell Count 2.56 10^6/uL (4.70-6.10); White Blood Cell Count 11.5 10^3/uL (4.8-10.8)
[2025-01-05 10:03] LABS: Blood Urea Nitrogen 26 mg/dl (9-20); Calcium 8.4 mg/dl (8.4-10.2); Carbon Dioxide 24 mmol/L (22-30); Chloride 111 mmol/L (98-107); Estimated Creatinine Clearance 52 ml/min; Glucose 65 mg/dl (70-99); Magnesium 1.9 mg/dl (1.6-2.3); Phosphorus 3.8 mg/dl (2.5-4.5); Sodium 143 mmol/L (135-145)
[2025-01-05 11:00] VITALS: BP 105/48
[2025-01-05] MEDS: NSS 1000 IV (11:24)
[2025-01-05] MEDS: PROTONIX 40 MG PO (12:10)
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
--- NOTE | 2025-01-05 12:35 | W.DCSUMMARY ---
Discharge Summary
Discharge Data
Date of Admission: 01/02/25
Date of Discharge: 01/05/25
-
Pending Results: No
Discharge Plan
-
Patient Disposition: Home (Routine Discharge)
Discharge Diagnosis/Procedures: Jejunal GI bleed
Acute Blood Loss Anemia
Mild Acute Kidney Injury vs Chronic Kidney Disease Stage III
Coronary Artery Disease
History Heart Failure with Recovered Ejection Fraction
Orthostatic hypotension
Aortic valve stenosis
Paroxysmal atrial fibrillation
COPD on 2 L oxygen at nighttime
GERD
Former smoker
Condition: Fair
Diet: Low Residue
Additional Diets: ok to advance as tolerated
Activity: As tolerated
Driving Restrictions: As prior to admission
Bathing Restrictions: None
Others Tests: A 1 week heart monitor is being mailed to your house from the cardiology office, included are instructions on how to apply, it is essentially a sticker that is applied directly to the chest without wires. Water should not directly hit
the monitor in the shower and you should shield the monitor from water.
Please repeat CBC and BMP in 1-2 days of discharge. Results to be forwarded to primary care provider and GI. Script has been provided to facilitate.
Activity Restrictions/Additional Instructions:
Please follow up with primary care provider in 1 week of discharge, keep your appointments with Cardiology, and follow up with GI in 2-4 weeks of discharge.
Continue Aspirin while holding Eliquis. When resuming Eliquis, discontinue Aspirin.
Please take medications as prescribed/recommended and follow up with primary care provider and/or other healthcare provider involved in your care for refills and/or further adjustment to your medication regimen as necessary.
Referrals:
Thomas Bolanos DO [Active] - 01/17/25 9:40 am (You are scheduled to see Dr. Bolanos's physician licensed investment sales assistant, Anny, at the [place] office on 01/17/2025 at 9:40 AM. Please call to [facility] [phone] if you need to reschedule.)
Joseph Aj MD [Family Provider] - in one week
Joseph Perez MD [Active] - 02/16/25 3:40 pm (You are scheduled to see Dr. Bolanos's partner, Dr. Joseph Perez, at the [place] office on 02/16/2025 at 3:40 PM to discuss possible Watchman procedure to help reduce the risk of stroke
associated with A-fib as an alternative to being on blood thinning medications.)
Azul Saxena DO [Active] - in two to four weeks
Prescriptions:
Continued
atorvastatin 40 MG tablet
40 mg PO DAILY
albuterol sulfate 1 PUFF HFA aerosol inhaler
1 puff inhalation R Q4HPRN PRN (Reason: asthma)
albuterol sulfate 2.5 MG/3 ML solution for nebulization
2.5 mg inhalation R BID
roflumilast [Daliresp] 500 MCG tablet
500 mcg PO DAILY
multivitamin with folic acid [Tab-A-Silvano] 1 TABLET tablet
1 tab PO DAILY
Trelegy Ellipta 100-62.5-25 mcg Blister With Device
1 inh INHALATION R DAILY
fexofenadine 180 mg Tablet
180 mg PO Q48H
amiodarone [Pacerone] 200 mg tablet
200 mg PO DAILY
acetaminophen 325 mg Tablet
650 mg PO Q6HPRN PRN (Reason: mild pain)
esomeprazole magnesium [Nexium] 20 mg Capsule,Delayed Release(Dr/Ec)
20 mg PO DAILY
midodrine 5 mg tablet
10 mg PO TID
carvedilol 6.25 mg tablet
3.125 mg PO BID
aspirin 81 MG tablet,delayed release (DR/EC)
81 mg PO DAILY
furosemide 20 mg Tablet
20 mg PO DAILY
Held
Eliquis 5 mg tablet
5 mg PO BID
Hold Instructions: Please discuss with Cardiology when resuming. When resumed, discontinue aspirin.
Discharge Orders:
Discharge Patient (As Directed); Ordered 01/05/25
Ordered By: Sury Cedillo
Discharge Date and Time
Print Language: CANADIAN
--- NOTE | 2025-01-05 12:39 | PN.CDI ---
CDI
- -
CDI:
Physician Documentation Request
Admit Date: 01/02/25 13:25
Dear Doctor Mamadou,
Patient admitted for management of GI bleeding.
Patient has a history of atrial fibrillation.
Cardiology refers to it as persistent.
Hospitalist as paroxysmal.
In an attempt to clarify potentially conflicting documentation, please clarify the type of atrial fibrillation:
Paroxysmal atrial fibrillation - terminates spontaneously or with intervention within 7 days of onset
Persistent atrial fibrillation - episodes of continuous AF that last more than 7 days and do not self-terminate
Other - please specify
Use of terms such as suspected, likely, concern for, or probable (associated with a specific diagnosis that is being evaluated, monitored, or treated as if it exists) are acceptable and can be coded in the inpatient setting, when documented at the
time of discharge.
Thank you,
Tabtiha Montana RN, BSN
CDI Specialist
tiger text
Please use your independent medical judgment in providing your response.
--- NOTE | 2025-01-05 12:57 | PN.CDI ---
CDI
- -
CDI:
Physician Documentation Request
Admit Date: 01/02/25 13:25
Dear Doctor Mamadou,
Patient admitted for GI bleed.
Hospitalist progress notes states 'Hx HFrEF recovered EF'
01/04 Cardiology note states 'Possible acute on chronic HFrEF....proBNP was only 304 when checked on 01/03/2025, lab reviewed by me. Weight continues to be higher than previous discharge weight. Standing scale weight for 01/04/2025 is 219 lbs and
previous dry weight at discharge on 10/20/2024 was 208 lbs. Cre has improved so will restart Lasix 20 mg daily on 01/04/2025'
EF on echo 05/2024 is noted at 45%
Please clarify the type and acuity of CHF you are evaluating, treating or monitoring.
Type Acuity
Systolic Chronic
Diastolic Acute on Chronic
Combined Systolic/Diastolic other
Other
Use of terms such as suspected, likely, concern for, or probable (associated with a specific diagnosis that is being evaluated, monitored, or treated as if it exists) are acceptable and can be coded in the inpatient setting, when documented at the
time of discharge.
Thank you,
Tabitha Montana RN, BSN
CDI Specialist
tiger text
Please use your independent medical judgment in providing your response.
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
== END 2025-01-05 13:47 | disposition home health service (06) | DRG 378 ==
LOC: 4 WEST ACU 13:25
PROVIDERS: Internal Medicine; Physician Assistant Medical; Registered Nurse; ADMITTING PHYSICIAN Internal Medicine; ATTENDING PHYSICIAN Internal Medicine; CONSULT PHYSICIAN Internal Medicine Cardiovascular Disease; CONSULT PHYSICIAN Internal Medicine Gastroenterology; EMERGENCY PHYSICIAN Emergency Medicine; FAMILY PHYSICIAN Family Medicine
PROC: 30233N1 Transfusion of Nonautologous Red Blood Cells into Peripheral Vein, Percutaneous Approach (ICD-10-PCS; 2025-01-03)
PROC: 3E0G8GC Introduction of Other Therapeutic Substance into Upper GI, Via Natural or Artificial Opening Endoscopic (ICD-10-PCS; 2025-01-04)
PROC: XW0G886 Introduction of Mineral-based Topical Hemostatic Agent into Upper GI, Via Natural or Artificial Opening Endoscopic, New Technology Group 6 (ICD-10-PCS; 2025-01-04)
DX: K92.2 Gastrointestinal hemorrhage, unspecified (principal); D62 Acute posthemorrhagic anemia; N17.9 Acute kidney failure, unspecified; J96.11 Chronic respiratory failure with hypoxia; I50.32 Chronic diastolic (congestive) heart failure; K44.9 Diaphragmatic hernia without obstruction or gangrene; K31.7 Polyp of stomach and duodenum; J44.9 Chronic obstructive pulmonary disease, unspecified; Z79.01 Long term (current) use of anticoagulants; I25.10 Atherosclerotic heart disease of native coronary artery without angina pectoris; Z87.01 Personal history of pneumonia (recurrent); K21.9 Gastro-esophageal reflux disease without esophagitis; J98.4 Other disorders of lung; Z90.81 Acquired absence of spleen; Z96.652 Presence of left artificial knee joint; Z87.891 Personal history of nicotine dependence; E78.00 Pure hypercholesterolemia, unspecified; Z79.82 Long term (current) use of aspirin; E86.0 Dehydration; I95.1 Orthostatic hypotension; Z99.81 Dependence on supplemental oxygen; Z68.29 Body mass index [BMI] 29.0-29.9, adult; E66.9 Obesity, unspecified; Z85.840 Personal history of malignant neoplasm of eye; Z87.11 Personal history of peptic ulcer disease; D53.9 Nutritional anemia, unspecified; Z79.899 Other long term (current) drug therapy; Z95.5 Presence of coronary angioplasty implant and graft; I25.2 Old myocardial infarction; Z86.0100 Personal history of colon polyps, unspecified; Z91.199 Patient's noncompliance with other medical treatment and regimen due to unspecified reason; I48.0 Paroxysmal atrial fibrillation
CPT/HCPCS: 80048; 80053; 83735; 83880; 84100; 85014; 85018; 85025; 85027; 85610; 85730; 86850; 86900; 86901; 86920; 93005; 94640; 96374; 99285; P9016

== ENCOUNTER → 2025-01-07 09:25 | Outpatient (REF) | payer MEDICARE, OTHER, SELFPAY ==
[2025-01-07 10:27] LABS: Blood Urea Nitrogen 15 mg/dl (9-20); Calcium 8.8 mg/dl (8.4-10.2); Carbon Dioxide 27 mmol/L (22-30); Chloride 107 mmol/L (98-107); Glucose 132 mg/dl (70-99); Potassium 3.6 mmol/L (3.5-5.1); Sodium 143 mmol/L (135-145)
[2025-01-07 10:54] LABS: % Basophils 0.5 % (0-2); % Eosinophils 2.7 % (0-6); % Immature Granulocytes 0.7 % (0-0.5); % Lymphocytes 12.4 % (20.5-51.1); % Monocytes 12.4 % (1.7-9.3); % Neutrophils 71.3 % (42.2-75.2); Absolute Basophils 0.1 10^3/uL (0-0.2); Absolute Eosinophils 0.4 10^3/uL (0-0.7); Absolute Immature Granulocytes 0.1 10^3/uL (0-0.05); Absolute Lymphocytes 1.6 10^3/uL (1.2-3.4); Absolute Monocytes 1.6 10^3/uL (0.1-0.6); Absolute Neutrophils 9.1 10^3/uL (1.4-6.5); Hematocrit 28.1 % (39.0-52.0); Hemoglobin 8.6 g/dL (13.0-18.0); Mean Corp Hgb Conc. 30.6 g/dL (33.0-37.0); Mean Corpuscular Volume 97.9 fL (80.0-94.0); Mean Platelet Volume 10.3 fL (7.4-10.4); Nucleated Red Blood Cells % 0.3 % (-); Platelet Count 419 10^3/uL (130-400); Red Blood Cell Count 2.87 10^6/uL (4.70-6.10); Red Cell Dist. Width 17.9 % (11.5-14.5); White Blood Cell Count 12.8 10^3/uL (4.8-10.8)
== END ==
LOC: REG 09:25
PROVIDERS: ATTENDING PHYSICIAN Internal Medicine; FAMILY PHYSICIAN Family Medicine; OTHER PHYSICIAN Internal Medicine
DX: K21.9 Gastro-esophageal reflux disease without esophagitis (principal)
CPT/HCPCS: 36415; 80048; 85025

== ENCOUNTER → 2025-01-26 11:43 | Outpatient (REF) | payer MEDICARE, OTHER, SELFPAY | LOC: HWRAD 11:43 | PROVIDERS: ATTENDING PHYSICIAN Internal Medicine Critical Care Medicine; FAMILY PHYSICIAN Family Medicine | DX: R91.1 Solitary pulmonary nodule (principal) | CPT/HCPCS: 71046 ==

== ENCOUNTER → 2025-02-08 11:35 | Outpatient (REF) | payer MEDICARE, OTHER, SELFPAY ==
[2025-02-08 23:59] LABS: IgA 286 mg/dl (70-400); IgG 628 mg/dl (700-1600); IgM 46 mg/dl (40-230)
== END ==
LOC: HWLAB 11:35
PROVIDERS: ATTENDING PHYSICIAN Internal Medicine Critical Care Medicine; FAMILY PHYSICIAN Family Medicine
DX: J44.9 Chronic obstructive pulmonary disease, unspecified (principal)
CPT/HCPCS: 36415; 82784

== ENCOUNTER → 2025-02-20 11:28 | Outpatient (REF) | payer MEDICARE, OTHER, SELFPAY ==
[2025-02-20 16:36] LABS: ALT (SGPT) 13 U/L (0-50); AST (SGOT) 16 U/L (17-59); Albumin 3.7 g/dl (3.5-5.0); Alkaline Phosphatase 76 U/L (38-126); Blood Urea Nitrogen 18 mg/dl (9-20); Calcium 8.5 mg/dl (8.4-10.2); Carbon Dioxide 38 mmol/L (22-30); Chloride 97 mmol/L (98-107); Glucose 92 mg/dl (70-99); Potassium 4.2 mmol/L (3.5-5.1); Sodium 140 mmol/L (135-145); Total Bilirubin 0.7 mg/dl (0.2-1.3); Total Protein 6.1 g/dl (6.3-8.2); eGFR 49.16
== END ==
LOC: HWLAB 11:28
PROVIDERS: ATTENDING PHYSICIAN Internal Medicine Cardiovascular Disease; FAMILY PHYSICIAN Family Medicine
DX: I48.19 Other persistent atrial fibrillation (principal)
CPT/HCPCS: 36415; 80053

== ENCOUNTER → 2025-02-23 11:13 | Outpatient (REF) | payer MEDICARE, OTHER, SELFPAY | LOC: RAD 11:13 | PROVIDERS: ATTENDING PHYSICIAN Internal Medicine Cardiovascular Disease; FAMILY PHYSICIAN Family Medicine; REFERRING PHYSICIAN Internal Medicine Critical Care Medicine | DX: I48.0 Paroxysmal atrial fibrillation (principal) | CPT/HCPCS: 75572; Q9967 ==

== ENCOUNTER → 2025-03-06 11:13 | Outpatient (REF) | payer MEDICARE, OTHER, SELFPAY ==
[2025-03-06 12:48] LABS: % Basophils 1.1 % (0-2); % Eosinophils 3.6 % (0-6); % Immature Granulocytes 0.6 % (0-0.5); % Lymphocytes 17.7 % (20.5-51.1); % Monocytes 15.9 % (1.7-9.3); % Neutrophils 61.1 % (42.2-75.2); Absolute Basophils 0.1 10^3/uL (0-0.2); Absolute Eosinophils 0.3 10^3/uL (0-0.7); Absolute Immature Granulocytes 0.1 10^3/uL (0-0.05); Absolute Lymphocytes 1.6 10^3/uL (1.2-3.4); Absolute Monocytes 1.4 10^3/uL (0.1-0.6); Absolute Neutrophils 5.4 10^3/uL (1.4-6.5); Hematocrit 29.6 % (39.0-52.0); Hemoglobin 8.7 g/dL (13.0-18.0); Mean Corp Hgb Conc. 29.4 g/dL (33.0-37.0); Mean Corpuscular Hgb 25.6 pg (27.0-31.0); Mean Corpuscular Volume 87.1 fL (80.0-94.0); Mean Platelet Volume 10.4 fL (7.4-10.4); Nucleated Red Blood Cells % 0 % (-); Platelet Count 673 10^3/uL (130-400); Red Cell Dist. Width 19.1 % (11.5-14.5); White Blood Cell Count 8.8 10^3/uL (4.8-10.8)
[2025-03-06 13:51] LABS: Ferritin 12.7 ng/ml (17.9-464.0)
[2025-03-06 13:54] LABS: Blood Urea Nitrogen 14 mg/dl (9-20); Carbon Dioxide 30 mmol/L (22-30); Chloride 105 mmol/L (98-107); Glucose 93 mg/dl (70-99); Iron 28 ug/dl (49-181); Potassium 4.9 mmol/L (3.5-5.1); Sodium 142 mmol/L (135-145); eGFR 58.37
[2025-03-06 14:03] LABS: Percent Saturation 6 % (20-50); Total Iron Binding Capacity 412 ug/dl (261-462)
== END ==
LOC: HWLAB 11:13
PROVIDERS: ATTENDING PHYSICIAN Nurse Practitioner; FAMILY PHYSICIAN Family Medicine; REFERRING PHYSICIAN Internal Medicine Cardiovascular Disease
DX: I48.0 Paroxysmal atrial fibrillation (principal); D50.0 Iron deficiency anemia secondary to blood loss (chronic)
CPT/HCPCS: 36415; 80048; 82728; 83540; 83550; 85025

== ENCOUNTER → 2025-03-09 11:41 | Outpatient (REF) | payer MEDICARE, OTHER, SELFPAY | LOC: REG 11:41 | PROVIDERS: ATTENDING PHYSICIAN Internal Medicine Critical Care Medicine; FAMILY PHYSICIAN Family Medicine | DX: J41.1 Mucopurulent chronic bronchitis (principal) | CPT/HCPCS: 87070; 87205 ==

== ENCOUNTER → 2025-03-20 14:07 | Outpatient (REF) | payer MEDICARE, OTHER, SELFPAY | LOC: HWRAD 14:07 | PROVIDERS: ATTENDING PHYSICIAN Internal Medicine Critical Care Medicine; FAMILY PHYSICIAN Family Medicine | DX: R93.89 Abnormal findings on diagnostic imaging of other specified body structures (principal); J98.4 Other disorders of lung; J44.9 Chronic obstructive pulmonary disease, unspecified; J41.1 Mucopurulent chronic bronchitis | CPT/HCPCS: 71046 ==

== ENCOUNTER → 2025-04-06 09:46 | Outpatient (REF) | payer MEDICARE, OTHER, SELFPAY ==
[2025-04-06 10:24] LABS: Hematocrit 29.1 % (39.0-52.0); Hemoglobin 8.5 g/dL (13.0-18.0); Mean Corp Hgb Conc. 29.2 g/dL (33.0-37.0); Mean Corpuscular Volume 82.4 fL (80.0-94.0); Nucleated Red Blood Cells % 0.3 % (-); Platelet Count 460 10^3/uL (130-400); Red Cell Dist. Width 20.3 % (11.5-14.5)
[2025-04-06 10:36] LABS: INR 1.13; PT 15.1 Sec (11.4-14.6)
[2025-04-06 11:09] LABS: ALT (SGPT) 13 U/L (0-50); AST (SGOT) 23 U/L (17-59); Albumin 3.8 g/dl (3.5-5.0); Alkaline Phosphatase 84 U/L (38-126); Blood Urea Nitrogen 20 mg/dl (9-20); Calcium 9.0 mg/dl (8.4-10.2); Carbon Dioxide 32 mmol/L (22-30); Chloride 102 mmol/L (98-107); Glucose 98 mg/dl (70-99); Potassium 4.6 mmol/L (3.5-5.1); Sodium 141 mmol/L (135-145); Total Protein 6.5 g/dl (6.3-8.2); eGFR 45.50
== END ==
LOC: SDSPAT 09:46
PROVIDERS: ATTENDING PHYSICIAN Internal Medicine Cardiovascular Disease; FAMILY PHYSICIAN Family Medicine; OTHER PHYSICIAN Nuclear Medicine Nuclear Cardiology
DX: I48.0 Paroxysmal atrial fibrillation (principal)
CPT/HCPCS: 36415; 80053; 85025; 85610; 86850; 86900; 86901; 87070; 93005

== ENCOUNTER 2025-04-13 06:43 | Day surgery (SDC) | payer MEDICARE, OTHER, SELFPAY | END 2025-04-13 09:17 | disposition home or self-care (01) | LOC: CATH 06:43 | PROVIDERS: ATTENDING PHYSICIAN Nuclear Medicine Nuclear Cardiology; FAMILY PHYSICIAN Family Medicine; REFERRING PHYSICIAN Internal Medicine Cardiovascular Disease | DX: I48.0 Paroxysmal atrial fibrillation (principal); I08.3 Combined rheumatic disorders of mitral, aortic and tricuspid valves; I13.0 Hypertensive heart and chronic kidney disease with heart failure and stage 1 through stage 4 chronic kidney disease, or unspecified chronic kidney disease; I50.22 Chronic systolic (congestive) heart failure; N18.30 Chronic kidney disease, stage 3 unspecified; I47.20 Ventricular tachycardia, unspecified; E78.5 Hyperlipidemia, unspecified; Z86.73 Personal history of transient ischemic attack (TIA), and cerebral infarction without residual deficits; I25.10 Atherosclerotic heart disease of native coronary artery without angina pectoris; Z95.5 Presence of coronary angioplasty implant and graft; J44.9 Chronic obstructive pulmonary disease, unspecified; Z87.891 Personal history of nicotine dependence; K21.9 Gastro-esophageal reflux disease without esophagitis; Z85.820 Personal history of malignant melanoma of skin; Z79.01 Long term (current) use of anticoagulants | CPT/HCPCS: 93312; 93320; 93325 ==

== ENCOUNTER 2025-04-19 05:55 | Inpatient (IN) | payer MEDICARE, OTHER, SELFPAY ==
[2025-04-06 09:54] VITALS: BMI 31.6
[2025-04-19] VITALS (14 sets, daily range): BP systolic 103–119; BP diastolic 50–63
[2025-04-19 08:46] LABS: ACT-LR - POC 239 Seconds (116-155)
--- NOTE | 2025-04-19 09:20 | WATCHMAN.MD ---
Watchman Implant
-
ELECTROPHYSIOLOGY/INTERVENTIONAL PROCEDURE REPORT
Date of Procedure: April 19, 2025
Referring: Liliya Cat
Assisting Physician: Joseph Perez
PROCEDURES:
1. Left atrial appendage occlusion device using 24 mm WATCHMAN FLX device
2. Intracardiac echocardiography
3. Ultrasound-guided right common femoral venous access
INDICATION: High [id number] warranting halfway full anticoagulation but inability to do this given his bleeding risk/bleeding complication.
ACCESS: Right common femoral vein, 16Fr sheath and 9Fr. sheaths, under US guidance using micropunture kit.
Ultrasound was utilized for vascular access. The right femoral vein was visualized under ultrasound, and the vessels was patent. An image was stored permanently in the patient's medical record. Under direct ultrasound guidance, an 8 Libyan
sheaths was inserted into the right common femoral vein, using a micropuncture kit through a modified Seldinger technique.
HEMODYNAMICS : (mmHg)
LA Pressure: 18
PROCEDURE REPORT:
After informed consent and patient safety 'Timeout' the patient was intubated and sedated by the anesthesiology service. Under ultrasound guidance, the right femoral vein was accessed by [ ] twice for transseptal puncture and intracardiac
ultrasound, respectively. Concomitant transesophageal echocardiogram was performed by [ ]
Baseline intracardiac ultrasound demonstrated no pericardial effusion and baseline SHRUTHI images revealed a trace pericardial effusion.
After ruling out a left atrial appendage thrombus, the patient was heparinized for an ACT between 350-400 seconds and under SHRUTHI and intracardiac ultrasound guidance transseptal puncture was performed by Dr. Donna De Oliveira using the [employer] VersaCross
trans-septal system in a [ ] position on the inferior-superior axis and a [ ] position on the anterior-posterior axis. Right atrial pressure was [ ] millimeters mercury and left atrial pressure was [ ] millimeters mercury.
Once transseptal puncture was performed over the [employer] pigtail 0.035 wire, which was parked in the body of left atrial appendage, the watchman access double curve sheath was advanced over this into the left atrium. A 5 Libyan pigtail
catheter was placed into the left atrial appendage and an appendage gram was performed using intravenous contrast dye demonstrating a [ ] type anatomy that was suitable likely for a [ ] mm WATCHMAN FLX device.
After appropriately prepping the device, [ ] successfully deployed a [ ] mm WATCHMAN FLX device. Device showed excellent positioning with no leaks post device deployment. [ ] to [ ] % compression was noted in the device after deployment. A
'tug-test' was performed demonstrating stability of the device. Given PASS criteria were met, the device was then released successfully by [ ].
Post procedure, SHRUTHI imaging demonstrated no new or worse pericardial effusion. Sheaths and catheters were removed from the left atrium and heparin was reversed using protamine. Catheters removed from the femoral veins with [id number] suture
applied. The patient tolerated the procedure well.
RADIATION SUMMARY: Fluoro Time (min): 7.8, Dose (mGy): 187, DAP (Gy.cm2) : 18.1
Closure Device: Figure of 8 suture
CONCLUSIONS
1. Successful deployment of 24 mm WATCHMAN FLX device under SHRUTHI and ICE guidance.
RECOMMENDATIONS
1. Plan for daily Eliquis 2.5 mg twice daily for the next 3 months.
2. 3-month SHRUTHI post procedure to assess stability of device and rule out any christian-device leaks. If no issues noted on the 3-month SHRUTHI post watchman placement such as a greater than 5 mm leak, plan would be to stop anticoagulation at that point and
continue daily baby aspirin lifelong.
3. Figure of 8 suture removal prior to discharge.
Copy to: [ ]
Donna De Oliveira MD, [facility], [facility]
[2025-04-19] MEDS: TYLENOL 650 MG PO (10:02)
[2025-04-19] MEDS: VENTOLIN NEBULES 2.5 MG INH (10:33)
--- NOTE | 2025-04-19 14:21 | ITS.CL.ABL ---
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
Ablation
Procedure Report:
WATCHMAN LEFT ATRIAL APPENDAGE CLOSURE DEVICE REPORT
Date: April 18, 2025
Referring City Superintendent: Dr. Joseph Aj
Primary Care Provider: Dr. Thomas Bolanos
History:
He has paroxysmal atrial fibrillation with elevated risk of atrial fibrillation related thromboembolic risk. Because of his CHADSVASc = 4 (CHF, HTN, Age, Vasc Dz) and high bleeding risk with prior GI bleeding requiring 4 units of packed red blood
cells. Ultimately found to have jejunal bleeding on enteroscopy. He is at high risk of recurrent major GI bleeding.
Watchman Team:
SHRUTHI: Dr Johnny Naik M.D.
Transseptal horizontal resaw operator: Dr Joseph Perez M.D.
Implanter: Dr Donna Adames M.D.
Procedure: Watchman left atrial appendage closure.
The patient was placed under general anesthesia by anesthesia.
A SHRUTHI probe was placed.
Ultrasound Guidance with real-time visualization of needle insertion and vessel patency performed by ks for femoral venous Vascular Access.
Under real-time US guidance, the needle was advanced with negative pressure into the vein. The needle was seen entering the vessel lumen with a good return of dark red flow, the syringe was removed, non-pulsatile, dark red blood low was noted and
the wire was passed without difficulty, then the needle was removed. US confirmed the wire was in the vein, not going into an artery,
Images were taken and saved for the patient's permanent record. Imaging findings typical femoral venous anatomy. Direct visualization of needle puncture into the femoral vein was observed and recorded.
A 10 Fr sheath was placed in the right femoral vein for ICE.
10 Fr sheath was initially placed placed via the right femoral vein and then upsized to allow access for the 14 Fr watchman sheath
Heparin was administered to goal ACT 350-400 seconds. Fluid bolus was given.
Intracardiac ultrasound catheter was placed in the right atrium identifying the intraatrial septum for transseptal puncture.
Transseptal puncture was performed By Dr Joseph Perez. This entailed advancing a sheath with dilator into the superior vena cava and withdrawing both (monitoring intracardiac ultrasound, fluoroscopy and tip pressure) with the tip oriented
toward the atrial septum. The fossa ovalis was engaged (indicated by sudden displacement of the sheath tip as well as tenting of the fossa seen on intracardiac ultrasound). [employer] transseptal system was used. Left atrial catheter position was
confirmed by echocardiographic imaging, pressure monitoring (LA mean pressure 15 mm Hg) and fluoroscopy. The sheath was advanced over the dilator and positioned in the left atrium.
Dr De Oliveira positioned and deployed the Watchman device.
A 5 Argentine curved pigtail was then substituted for the guidewire through the watchman sheath to the ostium of the left atrial appendage. The 5 Argentine pigtail was advanced into the left atrial appendage and angiography was performed. This allowed
additional measurements assessing left atrial appendage ostium size and RANJAN morphology.
The pigtail catheter was removed from the access sheath. A 24 mm Watchman device was flushed and then placed into the watchman access sheath and advanced through the sheath. The Watchman was clamped into the sheath. The device was deployed into
the left atrial appendage.
The PASS criteria were met. The stability tug test was performed and passed. Angiography and transesophageal echocardiogram revealed no leaks nor jets. The position was confirmed on angiography and transesophageal echo and there were no
significant shoulders. Compression ranges from 10 % to 17 %.
After meeting the PASS release criteria the device was released into the left atrial appendage.
The watchman access sheath was then removed through the transseptal into the IVC. A figure 8 suture closure was performed at the site of the femoral venous puncture and the sheath as it was removed.
Impression:
- Transseptal puncture by Dr Joseph Perez.
- Successful Deployment 24 mm WATCHMAN left atrial appendage closure device by Dr De Oliveira.
- Ultrasound guidance for vascular access
Recommended anticoagulation strategy for this specific patient is:
Anticoagulation strategy after watchman implantation will be Eliquis 2.5 mg twice daily. If at the 3-month post procedure SHRUTHI there is no significant leak and no device related thrombus then Eliquis can be discontinued in favor of aspirin 81 mg daily
At post procedure SRHUTHI leaks > 5mm are significant and require chronic full anticoagulation or consideration for leak closure.
Lanette-device leaks between 3 and 5 mm may also carry an increased risk. These patients will need individualized risk assessment and discussion with Watchman team.
Leaks < 3 mm are generally considered non-significant.
With leak of any size suggestion is to check SHRUTHI 12 mo out from implant.
While the overall risk of device related infection for Watchman device is very low, we recommend SBE prophylaxis with amoxicillin for the first 6 months after device implantation until the device is more completely endothelialized. After the first
6 months, the risk of infection associated with a device is further reduced and routine antibiotic prophylaxis is not mandatory but can be decided on an individual case basis.
He is scheduled for an office visit with SOFIYA Hyatt on July 18, 2025
He is scheduled for transesophageal echo on July 25, [address] Bolanos
Continue cardiovascular care with Dr. Bolanos.
cc:
Dr. Joseph Aj
Dr. Thomas Bolanos
--- NOTE | 2025-04-19 15:08 | W.DS.TRANS ---
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
-
Discharge Instructions:
Discharge Diagnosis/Procedures Atrial fibrillation post Watchman implant
Diet Low Cholesterol
Driving Restrictions No driving for 24 hours
Others Tests SHRUTHI 07/25/25. You will get a phone call from the
office to set your preadmission testing. You
will also get a phone call from the worm farm laborer
with instructions and time of arrival for your
SHRUTHI.
Instructions:
Stand-Alone Forms: DC Instructions- Cath/EP Lab
Changes to Home Medications: No
Discharge Medications:
DC Medications w/original date entered in [employer] [facility]
albuterol sulfate 90 mcg/actuation aerosol inhaler 1 puff inhalation R Q4HPRN PRN SOB 02/21/19
atorvastatin 40 mg tablet 40 mg PO DAILY High cholesterol 02/21/19
albuterol sulfate 2.5 mg/3 mL (0.083 %) solution for nebulization 2.5 mg inhalation R BID Lung/Breathing Issues 07/11/19
multivitamin with folic acid 400 mcg tablet (Tab-A-Silvano) 1 tab PO DAILY Supplement 07/11/19
roflumilast 500 mcg tablet (Daliresp) 500 mcg PO DAILY Lung/breathing issues 07/11/19
fexofenadine 180 mg tablet 180 mg PO Q48H Allergies 02/27/24
fluticasone fur. 100 mcg-umeclid 62.5 mcg-vilant 25 mcg inhalat.powder (Trelegy Ellipta) 1 inh inhalation R DAILY Lung/Breathing Issues 02/27/24
acetaminophen 325 mg tablet 650 mg PO Q6HPRN PRN mild pain 10/16/24
amiodarone 200 mg tablet (Pacerone) 200 mg PO DAILY Heart Disease/Condition 10/16/24
esomeprazole magnesium 20 mg capsule,delayed release (Nexium) 20 mg PO DAILY Gastrointestinal Issue 10/16/24
midodrine 5 mg tablet 10 mg PO TID Blood Pressure 10/16/24
furosemide 20 mg tablet 20 mg PO MOWEFR Fluid Retention/Swelling 01/02/25
apixaban 2.5 mg tablet (Eliquis) 2.5 mg PO BID 04/03/25
azithromycin 250 mg tablet 250 mg PO MOWEFR 04/03/25
carvedilol 3.125 mg tablet (Coreg) 3.125 mg PO BID 04/03/25
sodium chloride 3 % for nebulization 4 ml inhalation DAILY 04/03/25
Home Medication Changes
Pending Results: No
== END 2025-04-19 14:08 | disposition home or self-care (01) | DRG 274 ==
LOC: CATH-IN 05:55
PROVIDERS: Internal Medicine Interventional Cardiology; Student in an Organized Health Care Education/Training Program; ADMITTING PHYSICIAN Internal Medicine Cardiovascular Disease; FAMILY PHYSICIAN Family Medicine
PROC: 02L73DK Occlusion of Left Atrial Appendage with Intraluminal Device, Percutaneous Approach (ICD-10-PCS; 2025-04-19)
PROC: B24BZZ4 Ultrasonography of Heart with Aorta, Transesophageal (ICD-10-PCS; 2025-04-19)
DX: I48.0 Paroxysmal atrial fibrillation (principal); Z00.6 Encounter for examination for normal comparison and control in clinical research program; I13.0 Hypertensive heart and chronic kidney disease with heart failure and stage 1 through stage 4 chronic kidney disease, or unspecified chronic kidney disease; I50.22 Chronic systolic (congestive) heart failure; J44.9 Chronic obstructive pulmonary disease, unspecified; J98.4 Other disorders of lung; G47.33 Obstructive sleep apnea (adult) (pediatric); R09.02 Hypoxemia; N18.30 Chronic kidney disease, stage 3 unspecified; I44.0 Atrioventricular block, first degree; E78.5 Hyperlipidemia, unspecified; I47.20 Ventricular tachycardia, unspecified; I35.0 Nonrheumatic aortic (valve) stenosis; D50.9 Iron deficiency anemia, unspecified; D63.1 Anemia in chronic kidney disease; I25.10 Atherosclerotic heart disease of native coronary artery without angina pectoris; K21.9 Gastro-esophageal reflux disease without esophagitis; E66.9 Obesity, unspecified; M19.90 Unspecified osteoarthritis, unspecified site; Z68.31 Body mass index [BMI] 31.0-31.9, adult; Z87.19 Personal history of other diseases of the digestive system; Z99.81 Dependence on supplemental oxygen; Z86.73 Personal history of transient ischemic attack (TIA), and cerebral infarction without residual deficits; Z95.5 Presence of coronary angioplasty implant and graft; Z90.81 Acquired absence of spleen; Z87.891 Personal history of nicotine dependence; Z79.01 Long term (current) use of anticoagulants
CPT/HCPCS: 33340; 85347; 86850; 86900; 86901; 93005; 93355; 94640; C1769; C1892; Q9967

== ENCOUNTER 2025-04-28 08:53 | Outpatient (RCR) | payer MEDICARE, OTHER, SELFPAY ==
[2025-04-21 09:12] VITALS: BP 90/45
[2025-04-21] MEDS: INJECTAFER 265 MG IV (09:23)
[2025-04-21 10:01] VITALS: BP 117/50
[2025-04-28 09:05] VITALS: BP 94/41
[2025-04-28] MEDS: INJECTAFER 265 MG IV (09:16)
[2025-04-28 10:17] VITALS: BP 100/46
== END 2025-05-01 08:39 | disposition home or self-care (01) ==
LOC: OID 08:53
PROVIDERS: ATTENDING PHYSICIAN Physician Assistant Medical; FAMILY PHYSICIAN Family Medicine
DX: I48.0 Paroxysmal atrial fibrillation (principal); D50.9 Iron deficiency anemia, unspecified (principal); K92.2 Gastrointestinal hemorrhage, unspecified; Q27.33 Arteriovenous malformation of digestive system vessel; R53.1 Weakness; R06.02 Shortness of breath; Z79.01 Long term (current) use of anticoagulants; J44.9 Chronic obstructive pulmonary disease, unspecified; Z87.891 Personal history of nicotine dependence
CPT/HCPCS: 96365; J1439

== ENCOUNTER → 2025-05-19 10:10 | Outpatient (REF) | payer MEDICARE, OTHER, SELFPAY | LOC: HWRAD 10:10 | PROVIDERS: ATTENDING PHYSICIAN Internal Medicine Critical Care Medicine; FAMILY PHYSICIAN Family Medicine | DX: R91.1 Solitary pulmonary nodule (principal) | CPT/HCPCS: 71250 ==

== ENCOUNTER 2025-05-29 16:21 | Inpatient (IN) | payer MEDICARE, OTHER, SELFPAY ==
[2025-05-29 11:13] VITALS: BP 104/51
[2025-05-29 11:42] LABS: Hematocrit 37.6 % (39.0-52.0); Hemoglobin 11.8 g/dL (13.0-18.0); Mean Corp Hgb Conc. 31.4 g/dL (33.0-37.0); Mean Corpuscular Volume 91.9 fL (80.0-94.0); Platelet Count 315 10^3/uL (130-400); Red Cell Dist. Width 25.2 % (11.5-14.5)
[2025-05-29 11:52] LABS: ALT (SGPT) 126 U/L (0-50); AST (SGOT) 76 U/L (17-59); Albumin 3.8 g/dl (3.5-5.0); Alkaline Phosphatase 371 U/L (38-126); Blood Urea Nitrogen 14 mg/dl (9-20); Calcium 8.7 mg/dl (8.4-10.2); Carbon Dioxide 30 mmol/L (22-30); Chloride 102 mmol/L (98-107); Glucose 126 mg/dl (70-99); Lipase 49 U/L (23-300); Potassium 3.4 mmol/L (3.5-5.1); Sodium 141 mmol/L (135-145); Total Protein 6.6 g/dl (6.3-8.2); eGFR 58.37
[2025-05-29 12:12] LABS: Nucleated Red Blood Cells % 0 % (-)
[2025-05-29 12:19] LABS: Anisocytosis 1+; Hypochromasia 2+; Normal RBC Morphology No; Polychromasia 1+; Target Cells 1+
[2025-05-29 12:20] LABS: Acanthocytes 1+; Stomatocytes 1+
--- NOTE | 2025-05-29 13:36 | ED.GENMED ---
History of Present Illness
General
Chief Complaint: Rectal Bleeding
Source: patient
Exam Limitations: none
Time Seen by Provider: 05/29/25 12:19
Nursing documentation reviewed up to this point in time: agreed with
History of Present Illness
History of Present Illness:
74-year-old male with history of COPD, ex-smoker, A-fib on Eliquis with history of GI bleed and recent Watchman procedure, he is still on Eliquis due to be discontinued in July. History of CHF, CAD, iron deficiency anemia. He is here for 4 days
of abdominal pain, he states he cannot eat as every time he eats he gets severe abdominal pain. He feels nauseous but there has not been vomiting. He is here because his stools have been black for the past 2 days. He admits to drinking 2 bottles
of Pepto-Bismol over the past several days. He denies fever or chills. He denies feeling weak, he states he gets 'dizzy sometimes when I stand up too fast.'
Past History
Past History
ED Past Medical History: Asthma, CAD, CHF, COPD, [place] and Other (Gastric ulcer, lower GI bleed, melanoma of the right eye, renal insufficiency, Diverticulitis with abscess)
ED Past Surgical History: Cardiac (Stent X1), Orthopedic and Other (Splenectomy)
Social History
Tobacco: Former smoker
Alcohol: Occasional
Drug: None
Personal:
Living: with family
Employment: Employed
Family History
Family History: Other (Noncontributory)
Review of Systems
Review of Systems
Allergies reviewed?: Yes
All Other Systems: ROS reviewed and negative except as documented in HPI and ROS
Constitutional: Denies fever
Respiratory: Denies trouble breathing
Cardiac: Denies chest pain
ABD/GI: Reports abdominal pain, nausea, black stools and anorexia; Denies vomiting, diarrhea or constipated
Phy Exam
Physical Exam
Physical Exam:
GENERAL: No acute distress. A&Ox3.
CONSTITUTIONAL: Afebrile.
EYES: clear, conjunctivae normal
ENMT: moist mucus membranes, Pharynx nl
RESPIRATORY: Regular respirations, nonlabored, lungs clear.
CARDIOVASCULAR: Regular rate and rhythm, no murmurs, no rubs.
GI: Soft, rotund, tender mid abdomen, normal BS
Rectal: Black stool heme neg
MUSCULOSKELETAL: Moves with ease. Well perfused.
SKIN: Warm, dry, pink
PSYCH: Normal mood and affect. Well kept, interactive and appropriate
NEUROLOGIC: Awake, alert and oriented. No focal neurological deficits
Course
Orders/Labs/Results
Orders:
Orders
05/29/25 11:22
Type And Crossmatch [Type+Screen] Urgent
Complete Blood Count/With Diff Urgent
Comprehensive Metabolic Panel Urgent
Lipase Urgent
05/29/25 13:39
US Abdomen Complete/Upper Urgent
Comment:
Reason For Exam: vomiting after eating, abd pain, elevat liver enz
05/29/25 Dinner
Clear Liquid
At Your Request: Non-Participating
05/29/25 15:10
GASTROINTESTINAL CONSULT Urgent
Consulting Provider: Emmanuel Mora
Was physician already notified: Yes
Reason for consult: abd pain, dilated bile duct, stones
05/29/25 15:40
Admit/Transfer Patient As Directed
Co-Sign Provider:
Level of Care: Inpatient admission
Assign to:: Telemetry
Physician / Group: ranjan shaffer
Diagnosis: choledocholithiasis
Reason for Telemetry: Other
Other Reason for Telemetry: afib rvr
Date to Stop Telemetry: 05/31/25
Time to Stop Telemetry: 11:00
Reason for Hospitalization: choledocholithiasis
Expected length of stay greater than two midnights?: Yes
ELOS- Estimated Length of Stay in days: 2
I certify the patient meets the requirements for IP care: Yes
PRN Pain Medication Management As Directed
May give lesser potent ordered pain med per pt: Yes
preference::
Protocol:: Medication orders for pain may be administered in a
manner that supports deferring to patient preference
when the pt is:
- Requesting an ordered lesser potent pain medication.
Least to most potent pain medications are defined
as: acetaminophen < NSAID < tramadol < opioids
(morphine, oxycodone, hydromorphone).
- Requesting a lesser dose of the same medication IF
ORDERED.
- Requesting a less intrusive route of administration
if both routes are prescribed by the provider (PO <
IV).
05/29/25 15:44
Code Status As Directed
Resuscitation Status: Full Code
05/29/25 18:00
Acetaminophen [Tylenol] 650 mg PO Q6HPRN PRN mild pain
Albuterol [ProAIR HFA INHALER] 1 puff INH R Q4HPRN PRN SOB
Azithromycin [Zithromax] 250 mg PO MoWeFr@0800
Bisacodyl [Dulcolax] 10 mg RECTAL [id number] PRN
Bismuth Subsalicylate [Valdez Bismuth] 524 mg PO TIDPRN PRN gerd
Docusate W/Senna [Senokot-S] 1 tablet PO BIDPRN PRN
Lactated Ringers [Lr] 1,000 ml IV 100 mls/hr
Midodrine [ProAmatine] 10 mg PO TID @ 0800,1200,1700
Morphine Sulfate 1 mg IV Q4HPRN PRN
Polyethylene Glycol Powder [Miralax] 17 grams PO DAILYPRN PRN
05/29/25 18:00
Activity As Directed
Activity Level: As Tolerated
Pneumatic Compression Sleeves As Directed
Type: Knee high
Vital Signs As Directed
Frequency: Per unit guidelines
DX Deep Vein Thrombosis Video Routine
05/29/25 20:00
Albuterol Nebs [Ventolin Nebules] 2.5 mg INH R BID
Carvedilol [Coreg] 3.125 mg PO BID
05/30/25 05:49
Complete Blood Count/No Diff IN AM
Comprehensive Metabolic Panel IN AM
05/30/25 Breakfast
NPO
Allow oral meds: Yes
Allow clear liquids: 4hrs prior to procedure
Comment: may have unrestricted clear liquid up to 4 hrs prior to scheduled procedure
05/30/25 08:00
Amiodarone [Pacerone] 200 mg PO DAILY
Atorvastatin [Lipitor] 40 mg PO DAILY
Loratadine [Claritin] 10 mg PO Q48H
Multivitamin [Theragran] 1 tablet PO DAILY
Pantoprazole [Protonix] 40 mg PO DAILY
Roflumilast [Daliresp] 500 mcg PO DAILY
Sodium Chloride 3% INH [Sodium Chloride 3% For Inhalation] 1 vial INH R DAILY
05/31/25 11:00
DC Protocol for Telemetry ONCE
Abnormal Lab Results
05/29/25
11:22
WBC 11.5 H 10^3/uL
(4.8-10.8)
RBC 4.09 L 10^6/uL
(4.70-6.10)
Hgb 11.8 L g/dL
(13.0-18.0)
Hct 37.6 L %
(39.0-52.0)
MCHC 31.4 L g/dL
(33.0-37.0)
RDW 25.2 H %
(11.5-14.5)
MPV 10.7 H fL
(7.4-10.4)
Abs Immat Gran (auto) 0.1 H 10^3/uL
(0-0.05)
Absolute Neuts (auto) 7.8 H 10^3/uL
(1.4-6.5)
Absolute Monos (auto) 2.0 H 10^3/uL
(0.1-0.6)
Lymphocytes % 12.9 L %
(20.5-51.1)
Monocytes % 17.2 H %
(1.7-9.3)
Potassium 3.4 L mmol/L
(3.5-5.1)
Glucose 126 H mg/dl
(70-99)
Total Bilirubin 1.7 H mg/dl
(0.2-1.3)
AST 76 H U/L
(17-59)
ALT 126 H U/L
(0-50)
Alkaline Phosphatase 371 H U/L
(38-126)
05/29/25 11:22
05/29/25 11:22
Vital Signs
Initial and Last Documented VS:
Initial Vital Signs
Temp Pulse Resp BP Pulse Ox
98.4 F 74 16 104/51 97
05/29/25 11:13 05/29/25 11:13 05/29/25 11:13 05/29/25 11:13 05/29/25 11:13
Last Documented Vital Signs
Temp Pulse Resp BP Pulse Ox
97.8 F 68 15 124/63 95
05/30/25 03:02 05/30/25 07:25 05/30/25 07:25 05/30/25 07:00 05/30/25 07:25
MDM/Problems Addressed
Differential Diagnosis Includes:
Cholecystitis, choledocholithiasis, biliary colic, gastritis, GI bleed
MDM/Problems Addressed:
74-year-old male with history of COPD, ex-smoker, A-fib on Eliquis with history of GI bleed and recent Watchman procedure, he is still on Eliquis due to be discontinued in July. History of CHF, CAD, iron deficiency anemia. He is here for 4 days
of abdominal pain, he states he cannot eat as every time he eats he gets severe abdominal pain. He feels nauseous but there has not been vomiting. He is here because his stools have been black for the past 2 days. He admits to drinking 2 bottles
of Pepto-Bismol over the past several days. He denies fever or chills. He denies feeling weak, he states he gets 'dizzy sometimes when I stand up too fast.'
CBC: WBC 11.5, hemoglobin 11.8
CMP: Mildly elevated liver enzymes, bilirubin 1.7, will check ultrasound for gallbladder
Stool is black but hematest negative. This is most likely from his taking Pepto-Bismol over the past couple of days
3:05 PM:
Abdominal ultrasound radiology report reviewed: IMPRESSION:
Cholelithiasis; gallbladder is moderately distended and contains several stones. Mild wall thickening. No pericholecystic fluid or Chopra sign to suggest acute cholecystitis at this time.
Dilated common bile measuring 12 mm. No intraductal calculi identified, noting nonvisualization of the distal duct. Correlation with LFTs recommended.
Plan: Admit, most likely needs MRCP/ERCP
Hospitalist notified of admission, GI also notified. GI consult in.
*Pulse Oximetry
SaO2: 97
Oxygen Mode of Delivery: Room air
Patient hypoxic: no
*Critical Care Note
Total Time (30-74mins, 75-104mins- exclusive of procedures): Not Applicable
ED Attending Note
-
Portions of this chart may have been created with voice recognition software.� Occasional wrong word or��sound alike� substitutions may have occurred due to the inherent limitations of voice recognition software.
Discharge Plan
Departure
Patient Disposition: Admit
Date of Disposition: 05/29/25
Time of Disposition: 15:11
Admit to: Med/Surg
Presentation/result/management discussed w/ accepting MD/DO: Hospitalist
Condition: Fair
Discharge Problem:
Abdominal pain, Cholestasis
Interventions
Interventions:
*Risk Screen - Suicide Last Done: 05/29/25 18:05
*General Assessment Last Done: 05/29/25 13:00
*Neglect/Abuse Screening Last Done: 05/29/25 13:00
*ED- Fall Risk Assessment Last Done: 05/29/25 13:00
*ED COVID-19 Vaccine History Last Done: 05/29/25 18:05
*Nursing Disposition Last Done: 05/29/25 17:52
IW-Fhamjv-Mlxgdeyqir Assessment Last Done: 05/29/25 13:00
ED- Cardiac Assessment Last Done: 05/29/25 13:00
ED- Pulmonary Assessment Last Done: 05/29/25 13:00
Discharge Date and Time
Discharge Date/Time: 05/29/25 17:52
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
--- NOTE | 2025-05-29 15:52 | HPS.HSE ---
Family Physician
-
Family Physician: Joseph Aj
Chief Complaint
-
abdominal pain
History of Present Illness
74 male with history of COPD, atrial fibrillation on Eliquis with Watchman, GI bleed history, GERD, hyperlipidemia, HFrEF, CAD and MANUEL who presents with a week of abdominal pain associated with nausea that improved when not eating however worse
with food. No abdominal pain associated with fluids. Is unable to describe to me exactly the pain and was not able to tell me if this moved or did not move because he was in 07/14 pain. States this was the worst pain in his life. For the last 4
days has not had anything to eat did drink 2 bottles of Mountain Dew last night.
Medical History
Past Medical History
Past Medical History: Reports Arrhythmia, CAD, CHF, COPD, GERD and Hypercholesterolemia
Past Surgical History: Reports Orthopedic
Social History
Tobacco: Former Smoker
Alcohol: Occasional
Drug: None
Personal:
Living: With Family
Family History
Family History: Not pertinent
Allergies / Home Medications
Allergies reflects when Allergies were last updated in [facility].
Home Medications with original date entered in [facility]
Allergy/Medication List:
Allergies
Allergy/AdvReac Type Severity Reaction Status Date / Time
No Known Allergies Allergy Verified 05/29/25 11:17
Home Medications
albuterol sulfate 90 mcg/actuation aerosol inhaler 1 puff inhalation R Q4HPRN PRN SOB 02/21/19
atorvastatin 40 mg tablet 40 mg PO DAILY High cholesterol 02/21/19
albuterol sulfate 2.5 mg/3 mL (0.083 %) solution for nebulization 2.5 mg inhalation R BID Lung/Breathing Issues 07/11/19
multivitamin with folic acid 400 mcg tablet (Tab-A-Silvano) 1 tab PO DAILY Supplement 07/11/19
roflumilast 500 mcg tablet (Daliresp) 500 mcg PO DAILY Lung/breathing issues 07/11/19
fexofenadine 180 mg tablet 180 mg PO Q48H Allergies 02/27/24
fluticasone fur. 100 mcg-umeclid 62.5 mcg-vilant 25 mcg inhalat.powder (Trelegy Ellipta) 1 inh inhalation R DAILY Lung/Breathing Issues 02/27/24
acetaminophen 325 mg tablet 650 mg PO Q6HPRN PRN mild pain 10/16/24
amiodarone 200 mg tablet (Pacerone) 200 mg PO DAILY Heart Disease/Condition 10/16/24
esomeprazole magnesium 20 mg capsule,delayed release (Nexium) 20 mg PO DAILY Gastrointestinal Issue 10/16/24
midodrine 5 mg tablet 10 mg PO TID Blood Pressure 10/16/24
apixaban 2.5 mg tablet (Eliquis) 2.5 mg PO BID 04/03/25
azithromycin 250 mg tablet 250 mg PO MOWEFR 04/03/25
carvedilol 3.125 mg tablet (Coreg) 3.125 mg PO BID 04/03/25
sodium chloride 3 % for nebulization 4 ml inhalation R DAILY 04/03/25
bismuth subsalicylate 262 mg/15 mL oral suspension (Pepto-Bismol) 524 mg PO TIDPRN PRN gerd 05/29/25
Review of Systems
-
A 12 point ROS was completed and negative except as noted: Yes
Physical Exam
Vital Signs
Vital Signs
Temp Pulse Resp BP Pulse Ox
98.4 F 74 16 104/51 97
05/29/25 11:13 05/29/25 11:13 05/29/25 11:13 05/29/25 11:13 05/29/25 13:38
Physical Exam
General: Well Developed, Well Nourished, No Apparent Distress, Comfortable and Obese
HEENT: NormoCephalic and Anicteric
Respiratory: Clear
Cardiac: S1/S2
GI: Soft, Non Distended and Tender (mid)
Genito-urinary: Deferred by me
Skin: Warm
Neuro: Awake and AO x 3
Psych: Calm
Laboratory Results
-
05/29/25 11:22
05/29/25 11:22
Laboratory Results
Total Bilirubin 1.7 mg/dl (0.2-1.3) H 05/29/25 11:22
AST 76 U/L (17-59) H 05/29/25 11:22
ALT 126 U/L (0-50) H 05/29/25 11:22
Alkaline Phosphatase 371 U/L (38-126) H 05/29/25 11:22
Lipase 49 U/L (23-300) 05/29/25 11:22
Impression/Plan
-
Choledocholithiasis
IV fluids
Analgesics
Antiemetics
CLD tonight
N.p.o. after midnight
GI consult for likely ERCP
Atrial fibrillation, s/p Watchman
Check EKG
Continue amiodarone
Hold Eliquis, did not take this morning and if for procedure
COPD without evidence of acute bronchospasm
Continue Daliresp, azithromycin and Thursday, on MDI
Hyperlipidemia
Continue statin
GERD
Continue PPI
HFrEF with recovered EF, compensated
Coreg
Off Lasix per home medication list
Obesity secondary to caloric intake
Dietary and exercise modification consider outpatient bariatric surgery follow-up/GLP-1 antagonist
CAD s/p stent
Continue beta-darryn statin
Hold anticoagulant
Hypertension
Continue midodrine
[2025-05-29 17:15] VITALS: BP 109/55
[2025-05-29 18:02] VITALS: BP 145/69
[2025-05-29 18:03] VITALS: BMI 28.3
[2025-05-29] MEDS: LR 1000 IV (18:42)
[2025-05-29] MEDS: MORPHINE SULFATE 1 MG IV ×2 (18:43→22:40)
[2025-05-29] MEDS: ZITHROMAX 250 MG PO (18:44)
[2025-05-29 19:19] VITALS: BP 118/55
[2025-05-29] MEDS: VENTOLIN NEBULES 2.5 MG INH (19:24)
[2025-05-29] MEDS: COREG 3.125 MG PO (20:29)
[2025-05-29 23:23] VITALS: BP 118/48
[2025-05-30 03:02] VITALS: BP 109/57
[2025-05-30] MEDS: LR 1000 IV ×2 (05:36→18:32)
[2025-05-30 06:00] VITALS: BMI 28.4
[2025-05-30 07:00] VITALS: BP 124/63
--- NOTE | 2025-05-30 07:00 | PTCARENOTE ---
pt refusing oral temp this AM.
[2025-05-30] MEDS: NON-FORMULARY ITEM 1 INH INH (07:21)
[2025-05-30] MEDS: VENTOLIN NEBULES 2.5 MG INH (07:22)
[2025-05-30] MEDS: SODIUM CHLORIDE 3% FOR INHALATION 1 VIAL INH (07:22)
[2025-05-30 07:37] LABS: ALT (SGPT) 95 U/L (0-50); AST (SGOT) 50 U/L (17-59); Albumin 3.3 g/dl (3.5-5.0); Alkaline Phosphatase 307 U/L (38-126); Blood Urea Nitrogen 12 mg/dl (9-20); Calcium 8.8 mg/dl (8.4-10.2); Carbon Dioxide 30 mmol/L (22-30); Chloride 104 mmol/L (98-107); Estimated Creatinine Clearance 67 ml/min; Glucose 76 mg/dl (70-99); Potassium 3.9 mmol/L (3.5-5.1); Sodium 139 mmol/L (135-145); Total Protein 5.6 g/dl (6.3-8.2); eGFR > 60.00
[2025-05-30 07:46] LABS: Hematocrit 34.9 % (39.0-52.0); Hemoglobin 11.3 g/dL (13.0-18.0); Mean Corp Hgb Conc. 32.4 g/dL (33.0-37.0); Mean Corpuscular Volume 91.1 fL (80.0-94.0); Platelet Count 324 10^3/uL (130-400); Red Cell Dist. Width 24.7 % (11.5-14.5)
[2025-05-30] MEDS: PROTONIX 40 MG PO (08:17)
[2025-05-30] MEDS: CLARITIN 10 MG PO (08:17)
[2025-05-30] MEDS: THERAGRAN 1 TABLET PO (08:17)
[2025-05-30] MEDS: LIPITOR 40 MG PO (08:18)
[2025-05-30] MEDS: COREG 3.125 MG PO ×2 (08:18→20:42)
[2025-05-30] MEDS: DALIRESP 500 MCG PO (08:18)
[2025-05-30] MEDS: PACERONE 200 MG PO (08:19)
--- NOTE | 2025-05-30 10:41 | W.PN.GI.CBS2 ---
Addendum entered and electronically signed by Lakesha Moreno DO 05/30/25 16:00:
Patient seen and examined independently of BUBBA. I agree with her note with my additions below
Joseph is a 74-year-old male with history of atrial fibrillation on Eliquis has had multiple GI bleeds in the past now status post Watchman who comes in with abdominal pain found to have choledocholithiasis on MRCP with a total bilirubin of 1.7, AST
of 76, ALT of 126, alkaline phosphatase of 371. He also had significant biliary colic. Patient's white count on admission was 11.5, hemoglobin 11.8 much better than baseline. Platelets 315. Patient has been afebrile, normotensive. He is
comfortable and no longer in significant pain. His last Eliquis dose was on 05/28 and he is in agreement to undergo ERCP which I explained to him and his . We will also consult surgery for potential eventual cholecystectomy. Review of his
lungs and his medications: He does have some mild wheezing which she states is his baseline. He is followed by Dr. Golden outpatient for his COPD and he is on azithromycin 250 mg Thursday. No history of JERRI. He uses oxygen at
night and states his lungs are at baseline.
Patient was placed on antibiotics. Placed him n.p.o. after midnight for ERCP tomorrow.
Prior to ERCP we have ordered a DuoNeb.
Addendum entered and electronically signed by BUBBA Flower 05/30/25 14:13:
05/30 MRI with MRCP:
The common bile duct is dilated measuring 12 mm. There is choledocholithiasis with a 5 mm stone in the inferior aspect of the common bile duct.
The gallbladder is mildly distended with numerous gallstones as well as a likely small stones in the gallbladder neck.
Cardiomegaly with a left basilar opacity.
Colonic diverticulosis. There is a duodenal diverticulum extending along the second portion the duodenum.
plan for ERCP in AM
ok for clears, NPO in AM
for surgical eval
add abx
reviewed with Dr. Van
Dr. moreno updated pt and
Original Note:
Today's Communication / Plan
-
Etiology of abdominal pain with elevated LFT's related to choledocholithiasis(US with dilated duct but no stone visualized and distal CBD not visualized) vs cholecystitis vs other
pt did note black stool prior to admission but noted did take pepto prior to admission and stable hbg less likely GI bleed
some recurrent pain overnight now improved
for MRI/MRCP with sedation prior today pending finding may need ERCP/surg eval
I reviewed with watchman coordinator ok to proceed with MRI with recent watchman
LFT's trending down
monitor for fever, recurrent pain/chills - abx held for now
Eliquis hold last dose 824 AM-- reviewed with cardiology add ASA 81mg with Eliquis hold
trend LFT's -- some downward trend today
family updated at bedside
Assessment / Plan
-
Pt is a 74yo with, afib on Eliquis with recent watchman, CVA, asthma, CAD, HFrEF, prior DE, , COPD, GERD, lung nodule, diverticular disease, osteoarthritis, covid, hypotension on Midodrine, prior tobacco abuse, prior splenectomy anemia, CKD,
and prior GI bleed 2/2 duodenal ulcer (2015), History of diverticulitis (2015), History of colon polyps with admission in October 2024 for melena found to have a hemoglobin of status post transfusion of 4 units packed red blood cells. Given
Kcentra at that time. Underwent EGD with no source of bleeding identified. Had 2 colonoscopies, repeated secondary to suboptimal that showed diffuse diverticulosis involving sigmoid, descending and colon. Nonbleeding internal hemorrhoids and a
few area of superficial ulcers in the ascending colon. The patient was cleared to restart anticoagulation. He was to follow-up for repeat colonoscopy in 3 to 6 months however he canceled his follow-up appointment in our office. He was then
admitted in December after abx and steroid course for COPD with dark stools. EGD was repeated with small HH, gastric polyps, atrophic erythema jejunal blood injected and epi treatment not successful and treated with monopolar probe with Hemospray.
with area proximal to jejunum distal to bleeding tattooed. Pt proceeded to watchman in April and remains on anticoagulation due to stop in July. He now presents with abdominal pain with inability to eat. He admits to black stool and
dizziness but was also taking pepto-bismol. On admission noted with WBC's 11,500, hbg 11.8 with prior 6-8 range since October, BUN normal at 14 and bilirubin 1.7, AST 76, ALT 126, alk phos 371 and lipase of 49. US completed with cholelithiasis
with GB distended with several stones and mild wall thickening. dilated CBD 12 mm no intraductal calculi identified with non visualization of distal duct and pancreas not well visualized He does admit to feeling of sweat with symptoms and chills
with dark urine. He admits to similar pain about 10 years ago but not similar to prior GI bleeding. He also admits to feeling of nausea but did not vomit. No recent wt loss or GPL-1 use.
-post prandial epigastric pain
-increased LFT's
-leukocytosis
-US with cholelithiasis with GB distention and mild wall thickening CBD 12 mm no calculi identified with non visualization of distal duct
-black stool after pepto use
-hx multiple GI bleed with stable hbg on admission --prior noted Duodenal ulcer,
-afib recent watchman 04/19 on Eliquis prior to admission
-chronic anemia
other med problems:
-colon polyps
-CVA
-asthma
-CAD
- HFrEF
- prior DE
-
-COPD
- GERD
- lung nodule
-diverticular disease
-osteoarthritis
-hypotension on Midodrine
-prior tobacco abuse
prior splenectomy anemia
-CKD
PLAN:
Etiology of abdominal pain with elevated LFT's related to choledocholithiasis(US with dilated duct but no stone visualized and distal CBD not visualized) vs cholecystitis vs other
pt did note black stool prior to admission but noted did take pepto prior to admission and stable hbg less likely GI bleed
some recurrent pain overnight now improved
for MRI/MRCP with sedation prior today pending finding may need ERCP/surg eval
I reviewed with watchman coordinator ok to proceed with MRI with recent watchman
LFT's trending down
monitor for fever, recurrent pain/chills - abx held for now
Eliquis hold last dose 05/28 AM-- reviewed with cardiology add ASA 81mg with Eliquis hold
trend LFT's -- some downward trend today
family updated at bedside
Subjective
Subjective
Date of Service: May 30, 2025
NPO no stools, admits to episode of pain overnight
Objective
Data Reviewed
Laboratory Data:
Laboratory Results
05/30/25 05:49
05/30/25 05:49
Laboratory Results
Total Bilirubin 1.3 mg/dl (0.2-1.3) 05/30/25 05:49
AST 50 U/L (17-59) 05/30/25 05:49
ALT 95 U/L (0-50) H 05/30/25 05:49
Alkaline Phosphatase 307 U/L (38-126) H 05/30/25 05:49
Lipase 49 U/L (23-300) 05/29/25 11:22
Vital Signs and I&O:
Vital Signs
Temp Pulse Resp BP Pulse Ox
97.8 F 68 15 124/63 95
05/30/25 03:02 05/30/25 07:25 05/30/25 07:25 05/30/25 07:00 05/30/25 07:25
I&O
05/29/25 05/30/25 05/31/25
06:59 06:59 06:59
Output Total 300 / 300
Balance -300 / -300
Physical Exam
Physical Exam
HEENT: Anicteric and Moist mucous membranes
Cardiology: Normal Sinus Rhythm
Pulmonary: Clear
GI: Soft, Non Distended and Tender (minimal )
Extremities: No Edema
Neuro: Non Focal
[2025-05-30] MEDS: VALIUM INJECTION 5 MG IV (10:42)
[2025-05-30 11:00] VITALS: BMI 28.4
[2025-05-30] MEDS: LOW STRENGTH ASPIRIN 81 MG PO (12:27)
[2025-05-30 12:28] VITALS: BP 100/53
--- NOTE | 2025-05-30 14:32 | CM ---
Met with pt and at bedside. Pt is upset about being mis-identified and being taken to the wrong room during yesterday's admission process.; is not interested in IA at this time. Will approach the pt tomorrow. Pt appears to be independent and
lives with . CM offered to ask nurse manager pacu to come and speak to him about his concerns; Pt declined 'at this time.'
Pt to have ECRP tomorrow
Plan: To be determined after IA is completed.
PCP: Joseph Gillette
Rx: [place]
[2025-05-30 15:07] VITALS: BP 112/53
[2025-05-30] MEDS: ZOSYN 50 IV ×2 (15:11→21:31)
--- NOTE | 2025-05-30 16:29 | W.PN.HOSP.TC ---
Today's Communication/Plan
-
Assessment / Plan
Assessment / Plan
General: Well Developed, Well Nourished, No Apparent Distress, Comfortable and Obese
HEENT: NormoCephalic and Anicteric
Respiratory: Clear
Cardiac: S1/S2
GI: Soft, Non Distended and Tender (mid)
Genito-urinary: Deferred by me
Skin: Warm
Neuro: Awake and AO x 3
Psych: Calm
Choledocholithiasis c/b cholestatic pattern transaminits
IV fluids
Analgesics
Antiemetics
CLD tonight
N.p.o. after midnight
GI rec MRCP
May need ERCP depending on MRCP findings
May need surgical eval depending on MRCP findings
Atrial fibrillation, s/p Watchman
Check EKG
Continue amiodarone
Hold Eliquis/ASA, did not take this morning and if for procedure
COPD without evidence of acute bronchospasm
Continue Daliresp, azithromycin and Thursday, on MDI
Hyperlipidemia
Continue statin
GERD
Continue PPI
HFrEF with recovered EF, compensated
Coreg
Off Lasix per home medication list
Obesity secondary to caloric intake
Dietary and exercise modification consider outpatient bariatric surgery follow-up/GLP-1 antagonist
CAD s/p stent
Continue beta-darryn statin
Hold anticoagulant
Hypertension
Continue midodrine
Anticipated Discharge: > 48 hours
Subjective/Interval History
-
Date of Service: May 30, 2025
Seen and examined. Patiently awaiting MRI. No new complaints.
Objective Data
-
Labs:
Laboratory Results
05/30/25
05:49
WBC 8.8
Hgb 11.3 L
Hct 34.9 L
Plt Count 324
Sodium 139
Potassium 3.9
Chloride 104
Carbon Dioxide 30
BUN 12
Creatinine 1.1
Glucose 76
Calcium 8.8
Total Bilirubin 1.3
AST 50
ALT 95 H
Alkaline Phosphatase 307 H
Vital Signs:
Vital Signs
Temp Pulse Resp BP Pulse Ox
97.6 F 69 16 112/53 93
05/30/25 15:07 05/30/25 15:07 05/30/25 15:07 05/30/25 15:07 05/30/25 15:07
I&O
05/29/25 05/30/25 05/31/25
06:59 06:59 06:59
Output Total 300 / 300
Balance -300 / -300
[2025-05-30 19:27] VITALS: BP 166/68
[2025-05-30] MEDS: VENTOLIN NEBULES INH (20:15)
[2025-05-30 23:09] VITALS: BP 118/46
[2025-05-31] VITALS (12 sets, daily range): BP systolic 105–141; BP diastolic 45–65; BMI 28.4; BMI 28.6
[2025-05-31] MEDS: LR 1000 IV (02:03)
[2025-05-31] MEDS: ZOSYN 50 IV ×3 (03:04→22:06)
[2025-05-31] MEDS: VENTOLIN NEBULES 2.5 MG INH ×2 (07:25→19:29)
[2025-05-31] MEDS: NON-FORMULARY ITEM 1 INH INH (07:25)
[2025-05-31] MEDS: SODIUM CHLORIDE 3% FOR INHALATION 1 VIAL INH (07:25)
[2025-05-31 07:40] LABS: Hematocrit 35.0 % (39.0-52.0); Hemoglobin 11.2 g/dL (13.0-18.0); Mean Corp Hgb Conc. 32.0 g/dL (33.0-37.0); Mean Corpuscular Volume 91.9 fL (80.0-94.0); Platelet Count 340 10^3/uL (130-400); Red Cell Dist. Width 24.8 % (11.5-14.5)
[2025-05-31] MEDS: DALIRESP 500 MCG PO (08:04)
[2025-05-31] MEDS: COREG 3.125 MG PO ×2 (08:05→19:55)
[2025-05-31] MEDS: PROTONIX 40 MG PO (08:05)
[2025-05-31] MEDS: LIPITOR 40 MG PO (08:06)
[2025-05-31] MEDS: LOW STRENGTH ASPIRIN 81 MG PO (08:06)
[2025-05-31] MEDS: THERAGRAN 1 TABLET PO (08:06)
[2025-05-31] MEDS: PACERONE 200 MG PO (08:07)
[2025-05-31] MEDS: ZITHROMAX 250 MG PO (08:08)
[2025-05-31 08:17] LABS: INR 1.00; PT 13.7 Sec (11.4-14.6)
[2025-05-31 08:18] LABS: ALT (SGPT) 62 U/L (0-50); AST (SGOT) 32 U/L (17-59); Albumin 3.1 g/dl (3.5-5.0); Alkaline Phosphatase 243 U/L (38-126); Blood Urea Nitrogen 10 mg/dl (9-20); Calcium 8.8 mg/dl (8.4-10.2); Carbon Dioxide 30 mmol/L (22-30); Chloride 103 mmol/L (98-107); Estimated Creatinine Clearance 73 ml/min; Glucose 75 mg/dl (70-99); Potassium 3.8 mmol/L (3.5-5.1); Sodium 138 mmol/L (135-145); Total Protein 5.5 g/dl (6.3-8.2); eGFR > 60.00
--- NOTE | 2025-05-31 10:25 | CON.PUL ---
Consultation
Consultation Request
Date/Time Consultation Requested: 05/31/25
Date/Time Consultation Performed: 05/31/25
Performing Provider: Azalia
Reason for Consultation: Preop Eval
Medical History
-
History of Present Illness:
74-year-old male with previous history of COPD on 2 L at night-follows Dr. Golden, prior history of bleeding gastric ulcer, CAD status post stents, heart failure with reduced ejection fraction, A-fib presenting to ER for abdominal pain x 1 week,
decreased p.o. intake. Is noted to have choledocholithiasis on workup. He has prior history of COPD, we are asked for preoperative evaluation.
Past Medical History
Past Medical History: Other (see list below)
Social History
Tobacco: Former Smoker
Alcohol: None
Drug: None
Family History
Family History: Reviewed & Not Pertinent
Allergies / Home Medications
Allergies
Allergy/AdvReac Type Severity Reaction Status Date / Time
No Known Allergies Allergy Verified 05/29/25 11:17
Home Medications
�Medication �Instructions �Recorded �Confirmed �Last Taken �Type
albuterol sulfate 90 mcg/actuation 1 puff inhalation R Q4HPRN PRN SOB 02/21/19 05/29/25 04/21/25 History
aerosol inhaler
atorvastatin 40 mg tablet 40 mg PO DAILY High cholesterol 02/21/19 05/29/25 05/28/25 History
albuterol sulfate 2.5 mg/3 mL 2.5 mg inhalation R BID 07/11/19 05/29/25 05/28/25 History
(0.083 %) solution for nebulization Lung/Breathing Issues
multivitamin with folic acid 400 1 tab PO DAILY Supplement 07/11/19 05/29/25 05/28/25 History
mcg tablet (Tab-A-Silvano)
roflumilast 500 mcg tablet 500 mcg PO DAILY Lung/breathing 07/11/19 05/29/25 05/28/25 History
(Daliresp) issues
fexofenadine 180 mg tablet 180 mg PO Q48H Allergies 02/27/24 05/29/25 05/26/25 History
fluticasone fur. 100 mcg-umeclid 1 inh inhalation R DAILY 02/27/24 05/29/25 05/28/25 History
62.5 mcg-vilant 25 mcg Lung/Breathing Issues
inhalat.powder (Trelegy Ellipta)
acetaminophen 325 mg tablet 650 mg PO Q6HPRN PRN mild pain 10/16/24 05/29/25 04/28/25 History
amiodarone 200 mg tablet (Pacerone) 200 mg PO DAILY Heart 10/16/24 05/29/25 05/28/25 History
Disease/Condition
esomeprazole magnesium 20 mg 20 mg PO DAILY Gastrointestinal 10/16/24 05/29/25 05/28/25 History
capsule,delayed release (Nexium) Issue
midodrine 5 mg tablet 10 mg PO TID Blood Pressure 10/16/24 05/29/25 05/29/25 08:00 History
apixaban 2.5 mg tablet (Eliquis) 2.5 mg PO BID Blood Clot 04/03/25 05/29/25 05/28/25 08:00 History
Prevention/Tx
azithromycin 250 mg tablet 250 mg PO MOWEFR Infection 04/03/25 05/29/25 05/26/25 History
carvedilol 3.125 mg tablet (Coreg) 3.125 mg PO BID Blood Pressure 04/03/25 05/29/25 05/29/25 08:00 History
sodium chloride 3 % for 4 ml inhalation R DAILY 04/03/25 05/29/25 05/28/25 History
nebulization Lung/Breathing Issues
bismuth subsalicylate 262 mg/15 mL 524 mg PO TIDPRN PRN gerd 05/29/25 05/29/25 05/27/25 History
oral suspension (Pepto-Bismol)
Review of Systems
-
History Source: Patient
All other systems: Negative unless noted
Vitals / Labs / Diagnostic Testing
Vital Signs
Temp Pulse Resp BP Pulse Ox
98.3 F 67 16 111/45 95
05/31/25 07:45 05/31/25 07:45 05/31/25 07:45 05/31/25 07:45 05/31/25 07:45
Lab Data
05/31/25 06:49
05/31/25 06:49
Laboratory Results
05/31/25
06:49
PT 13.7
INR 1.00
Diagnostic Testing:
Physical Exam
-
HEENT: Normocephalic, Anicteric and Moist Mucous Membranes
Cardiovascular: S1/S2 and Regular Rhythm
Respiratory: Clear and Non-Labored Respirations
GI: Soft, Non Distended and Non Tender
Neurology: Awake, Alert, Oriented and No Motor Deficits
Skin: Warm, Dry and Good Color
General: Comfortable and Other (NAD)
Assessment
-
74-year-old male with previous history of COPD on 2 L at night-follows Dr. Golden, prior history of bleeding gastric ulcer, CAD status post stents, heart failure with reduced ejection fraction, A-fib presenting to ER for abdominal pain x 1 week,
decreased p.o. intake. Is noted to have choledocholithiasis on workup. He has prior history of COPD, we are asked for preoperative evaluation.
Choledocholithiasis
Abdominal pain, decreased p.o. intake
Leukocytosis, mild
History of moderate COPD, stable
Recent left ankle fracture secondary to fall at home
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
Adm 2/2 UGIB/melena/anemia/shock 10/16/2024
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
on Trelegy 100mcg, daliresp and nebulized albuterol
Follows with Dr. Golden
Pulmonary nodule (4 mm in RML)
Restrictive lung disease
Hx of hypercapnia (pCO2 was in 60-80 range in 2019 - he is not on BiPAP or CPAP at home)
Moderate pulmonary hypertension likely due to to group II+ III
History of splenectomy
History of melanoma
Former tobacco smoker
GERD
Aortic valve stenosis
Personal history of COVID-19 (October 2023)
History of GI bleed with PUD
Diverticular disease
Osteoarthritis
Chronic heart failure/HFrEF
Atrial fibrillation (difficult to tell the chronicity of this) - rate now controlled
Plan
Patient has a history of moderate COPD, last seen in April with stable pulmonary function testing
He is well-known to our office and follows with Dr. Golden
He is only maintained on 2 L nocturnally, not at rest or with exertion
He is stable on Trelegy and albuterol as needed which can be resumed
Supplemental oxygen as needed
Encourage IS before and after procedure
Nebulizers as needed-currently not bronchospastic
He has history of choledocholithiasis, undergoing preoperative workup by surgery
We are asked for preoperative evaluation
He denies any new/worsening SOB--feels well controlled at this time
Given his stability and moderate severity of COPD, he is likely to be moderate risk for procedure
There is no overt contraindication to proceed
If complication should arise, we can reassess
History of EF 25-30%
Monitor for CHF--May require separate cardiac preoperative evaluation
Monitor on telemetry
DVT prophylaxis-mechanical
GI prophylaxis-on PPI
Aspiration precautions
PT/OT eval given recent ankle injury
Can resume outpatient follow-up with Dr. Golden
We will follow again post op if needed
Diagnostic Data
CXR 02-27-2024: Mild cardiomegaly. Slightly increased pulmonary vascularity which could represent mild CHF.
CT Scan: CHEST 05/19/25- There are no abnormal pleural or parenchymal pulmonary masses. There is cavitary noncalcified nodule in the anterior right upper lobe on image 112 series 201 measuring 1 cm. There is a pleural-based solid nodule in the right
upper lobe on image 117 measuring 0.7 cm. There is a solid noncalcified nodule in the lateral right upper lobe seen right upper lobe on image 121 measuring 0.4 cm. There is a cavitary noncalcified in the nodule posterior right upper lobe on image
122 measuring 0.8 cm. There are similar findings in the posterior right upper lobe on image 144 measuring 0.8 cm. There is a spiculated cavitary nodule in the right upper lobe on image 160 measuring 1.3 cm. There is a small solid noncalcified
pulmonary nodule in the central right upper lobe on image 169 measuring 0.5 cm. There is a solid pulmonary nodule central right lower lobe image #37 measuring 4 mm. All are stable except for a cavitary nodule in the anterior right upper lobe on
image 112 which is new. There is no significant parenchymal airspace disease. There is no pleural effusion.
CHEST 08/25/24- Solid and cavitary noncalcified right-sided pulmonary nodules as described above. PET imaging recommended. Severe atherosclerotic vascular disease. Several tiny gallstones.
TTE 02-27-2024: 1. Mild to moderate LVH with basal inferior akinesis and global hypokinesis of the remaining segments, EF 25-30%
2. Mitral annular calcification, thickened mitral leaflets, mild mitral regurgitation and dilated left atrium
3. Aortic sclerosis/borderline aortic stenosis, peak/mean gradient 14/8 mmHg, valve area 2.1 cm to by planimetry
4. Mildly dilated right ventricle with preserved systolic function, mild tricuspid regurgitation and pulmonary artery systolic pressure 40-45 mmHg
In April 2022 the ejection fraction was 45-50% with akinesis of the basal inferior, basal inferolateral and basal septum. The peak aortic valve gradient was 33 mmHg at that time.
Outpatient [facility] Data
PFT:
������ PFT 01/26/24: FVC 2.92/66%, FEV1 1.52/47%, ratio 52. 13% improvement in FEV1 post BD. TLC 4.69/65%, RV 1.73/64%,, DLCO 11.60/42%
�������PFT 12/31/21: FVC 2.77/61%, FEV1 1.67/50%, ratio 60. TLC 4.28/59%, DLCO 10.66/38%.
�������PFT 12/07/20: FVC 2.87/60%, FEV1 1.67/47%, ratio 58. TLC 4.76/64%, DLCO 11.28/39%. Compared to March 2020, this has worsened
�������Ron 06/18/20: FVC 3.10/67%, FEV1 1.76/49%, ratio 59
�������PFT 03/29/20: FVC 3.29/74%, FEV1 2.19/66%, ratio 67. There is evidence of reactive small airways disease. TLC 5.42/77%, DLCO 14.55/53%. when compared to 2016 PFT is stable
�������Spirometry 03/09/19 reveals FVC 2.40/49%, FEV1 1.48/40%, ratio 63.
�������Full pulmonary function test 07/08/2017 reveals FVC 3.41/75%, FEV1 2.24/66% ratio 66, TLC 5.07/72% and DLCO 16.18/58%.
6 MWT:
������ 6MWT 02/02/24: total distance 450 feet, 93% room air, heart rate 58, dyspnea scale 5/10
�������6MWT 12/31/21: Total distance 900 feet, 92% room air, heart rate 105, dyspnea scale 4/10
�������6MWT 10/01/20: Total distance 540 feet, 94% on room air, heart rate 95, dyspnea scale 0.5/10
�������6MWT 03/29/20: Total distance 720 feet, desaturation lacey 94% on room air, heart rate 87, dyspnea scale 5/10
�������6 minute walk test 03/09/19 reveals told distance 1200 feet, desaturation lacey 91%.
RADIOGRAPHIC STUDIES:
������ LDCT 05/22/23: 4 mm right middle lobe nodule. Small left pleural effusion and left basilar consolidation, bronchial wall thickening. Overall no significant change
�������LDCT 12/04/21: small left pleural effusion slightly improved compared to September 2020, mild atelectasis left base, subpleural thickening. Right middle lobe nodule 4 mm image #74, stable, left
upper lobe image #25 nodule stable. New nodule image #30 right side per my review, 6.5 mm (not in report). Peribronchial thickening at the bases. 1.1 cm pretracheal lymph node, stable.
CARDIAC STUDIES:
������ Echo 04/24/22: EF 45%, mild mitral regurgitation, aortic stenosis, PA pressure 39
�������Echo 09/08/19:he has 45%, mild inferior hypokinesis, diastolic dysfunction, mild aortic stenosis, valve area 1.5 cm2, nl PASP
�������02/21/19 cardiac catheterization:2 vessel coronary disease, LAD, RCA. Drug-eluting stent placed in mid LAD. LV dysfunction noted, EF 45%.
�������02/14/19 echocardiogram:LV dysfunction, EF 45%, aortic sclerosis, pulmonary artery pressure 40 with normal RV function.
LABS:
������ 05/22/23: Serum bicarbonate 31, normal creatinine, calcium, liver function
�������06/19/21: White count 35.9, hemoglobin 12.4, 403 platelets, serum bicarbonate 22, normal creatinine, calcium, liver function. Blood culture positive for Fusobacterium necroform
�������12/03/20: Serum bicarbonate 30, normal calcium, creatinine, liver function
�������03/26/20: Covid 19 PCR negative
Reports and relevant images were personally reviewed.
Total time spent on this consultation/encounter __55__ minutes which includes review of history, physical exam, medications, laboratory data, personal review of imaging, extensive review of outpatient records, discussion with care team and
respiratory therapy.
--- NOTE | 2025-05-31 10:35 | CM ---
Chart reviewed. Met with pt and at bedside. ERCP planned for today.
Plan: Home with no needs
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
--- NOTE | 2025-05-31 10:38 | CM ---
Chart reviewed. ERCP today. no change in d/c/ plans. Met with patient and at bedside.
Plan: home with no needs
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
--- NOTE | 2025-05-31 12:22 | W.PN.HOSP.TC ---
Today's Communication/Plan
-
Assessment / Plan
Assessment / Plan
General: Well Developed, Well Nourished, No Apparent Distress, Comfortable and Obese
HEENT: NormoCephalic and Anicteric
Respiratory: Clear
Cardiac: S1/S2
GI: Soft, Non Distended and Tender (mid)
Genito-urinary: Deferred by me
Skin: Warm
Neuro: Awake and AO x 3
Psych: Calm
Choledocholithiasis c/b cholestatic pattern transaminits
IV fluids
Analgesics
Antiemetics
GI rec ERCP which will be completed today
Maintain n.p.o.
Atrial fibrillation, s/p Watchman
Continue amiodarone
Hold Eliquis/ASA, did not take this morning and if for procedure
COPD without evidence of acute bronchospasm
Continue Daliresp, azithromycin and Thursday, on MDI
Hyperlipidemia
Continue statin
GERD
Continue PPI
HFrEF with recovered EF, compensated
Coreg
Off Lasix per home medication list
Obesity secondary to caloric intake
Dietary and exercise modification consider outpatient bariatric surgery follow-up/GLP-1 antagonist
CAD s/p stent
Continue beta-darryn statin
Hold anticoagulant
Hypertension
Continue midodrine
Anticipated Discharge: > 48 hours
Subjective/Interval History
-
Date of Service: May 31, 2025
Seen and examined. No new complaints. No acute overnight events.
Patiently awaiting for ERCP.
States he is thirsty and hungry.
Objective Data
-
Labs:
Laboratory Results
05/31/25
06:49
WBC 8.8
Hgb 11.2 L
Hct 35.0 L
Plt Count 340
PT 13.7
INR 1.00
Sodium 138
Potassium 3.8
Chloride 103
Carbon Dioxide 30
BUN 10
Creatinine 1.0
Glucose 75
Calcium 8.8
Total Bilirubin 1.0
AST 32
ALT 62 H
Alkaline Phosphatase 243 H
Vital Signs:
Vital Signs
Temp Pulse Resp BP Pulse Ox
97.7 F 61 18 105/47 96
05/31/25 11:35 05/31/25 11:35 05/31/25 11:35 05/31/25 11:35 05/31/25 11:35
I&O
05/30/25 05/31/25 06/01/25
06:59 06:59 06:59
Intake Total 2019
Output Total 300 / 300 1924 / 1924
Balance -300 / -300 95 / 95
[2025-05-31] MEDS: ZOSYN IV (18:11)
[2025-06-01] VITALS (16 sets, daily range): BP systolic 89–117; BP diastolic 43–53; BMI 29.0
[2025-06-01] MEDS: ZOSYN 50 IV ×3 (04:59→22:04)
[2025-06-01] MEDS: NON-FORMULARY ITEM 1 INH INH (07:58)
[2025-06-01] MEDS: VENTOLIN NEBULES 2.5 MG INH ×2 (07:59→20:01)
[2025-06-01] MEDS: SODIUM CHLORIDE 3% FOR INHALATION 1 VIAL INH (07:59)
[2025-06-01] MEDS: COREG 3.125 MG PO ×2 (08:15→20:27)
[2025-06-01] MEDS: THERAGRAN 1 TABLET PO (08:18)
[2025-06-01] MEDS: CLARITIN 10 MG PO (08:18)
[2025-06-01] MEDS: PACERONE 200 MG PO (08:18)
[2025-06-01] MEDS: DALIRESP 500 MCG PO (08:18)
[2025-06-01] MEDS: LOW STRENGTH ASPIRIN 81 MG PO (08:19)
[2025-06-01] MEDS: PROTONIX 40 MG PO (08:19)
[2025-06-01] MEDS: LIPITOR 40 MG PO (08:19)
--- NOTE | 2025-06-01 08:46 | W.PN.UPDATE ---
Update Note
Progress Note Update
--- NOTE | 2025-06-01 08:57 | W.PN.GI.CBS2 ---
Today's Communication / Plan
-
-- Continue n.p.o. status for rendezvous ERCP in the OR today with the esperanza
Assessment / Plan
-
Pt is a 74yo with, afib on Eliquis with recent watchman, CVA, asthma, CAD, HFrEF, prior [place], , COPD, GERD, lung nodule, diverticular disease, osteoarthritis, covid, hypotension on Midodrine, prior tobacco abuse, prior splenectomy anemia, CKD,
and prior GI bleed 2/2 duodenal ulcer (2015), History of diverticulitis (2015), History of colon polyps with admission in October 2024 for melena found to have a hemoglobin of status post transfusion of 4 units packed red blood cells. Given
Kcentra at that time. Underwent EGD with no source of bleeding identified. Had 2 colonoscopies, repeated secondary to suboptimal that showed diffuse diverticulosis involving sigmoid, descending and colon. Nonbleeding internal hemorrhoids and a
few area of superficial ulcers in the ascending colon. The patient was cleared to restart anticoagulation. He was to follow-up for repeat colonoscopy in 3 to 6 months however he canceled his follow-up appointment in our office. He was then
admitted in December after abx and steroid course for COPD with dark stools. EGD was repeated with small HH, gastric polyps, atrophic erythema jejunal blood injected and epi treatment not successful and treated with monopolar probe with Hemospray.
with area proximal to jejunum distal to bleeding tattooed. Pt proceeded to watchman in April and remains on anticoagulation due to stop in July. He now presents with abdominal pain with inability to eat. He admits to black stool and
dizziness but was also taking pepto-bismol. On admission noted with WBC's 11,500, hbg 11.8 with prior 6-8 range since October, BUN normal at 14 and bilirubin 1.7, AST 76, ALT 126, alk phos 371 and lipase of 49. US completed with cholelithiasis
with GB distended with several stones and mild wall thickening. dilated CBD 12 mm no intraductal calculi identified with non visualization of distal duct and pancreas not well visualized He does admit to feeling of sweat with symptoms and chills
with dark urine. He admits to similar pain about 10 years ago but not similar to prior GI bleeding. He also admits to feeling of nausea but did not vomit. No recent wt loss or GPL-1 use.
-post prandial epigastric pain
-increased LFT's
-leukocytosis
-US with cholelithiasis with GB distention and mild wall thickening CBD 12 mm no calculi identified with non visualization of distal duct
-black stool after pepto use
-hx multiple GI bleed with stable hbg on admission --prior noted Duodenal ulcer,
-afib recent watchman 04/19 on Eliquis prior to admission
-chronic anemia
other med problems:
-colon polyps
-CVA
-asthma
-CAD
- HFrEF
- prior AL
-
-COPD
- GERD
- lung nodule
-diverticular disease
-osteoarthritis
-hypotension on Midodrine
-prior tobacco abuse
prior splenectomy anemia
-CKD
05/30/2025 MRI: Dilated common bile duct to 12 mm with a 5 mm stone and minimally distended gallbladder with numerous stones including small stones in the neck
05/31/2025 EUS: Unfortunately, failed to locate ampulla due to multiple duodenal diverticuli
PLAN:
06/01/2025: Patient is pain-free and LFTs have improved
Due to abnormal anatomy ERCP was unable to locate the ampulla with multiple duodenal diverticuli. Plan today after review of cardiology, pulmonary, discussion with Dr. Brooks and Dr. Gee patient will undergo rendezvous ERCP in the operating room to
remove stone and gallbladder at the same time. Discussed with patient and at bedside for over 30 minutes including drawings. They are both comfortable with proceeding today.
Subjective
Subjective
Date of Service: June 01, 2025
Patient denies any pain. Off oxygen. Breathing at baseline.
Objective
Data Reviewed
Laboratory Data:
Laboratory Results
05/31/25 06:49
05/31/25 06:49
Laboratory Results
PT 13.7 Sec (11.4-14.6) 05/31/25 06:49
INR 1.00 05/31/25 06:49
Total Bilirubin 1.0 mg/dl (0.2-1.3) 05/31/25 06:49
AST 32 U/L (17-59) 05/31/25 06:49
ALT 62 U/L (0-50) H 05/31/25 06:49
Alkaline Phosphatase 243 U/L (38-126) H 05/31/25 06:49
Lipase 49 U/L (23-300) 05/29/25 11:22
Vital Signs and I&O:
Vital Signs
Temp Pulse Resp BP Pulse Ox
97.7 F 78 16 89/45 96
06/01/25 08:28 06/01/25 08:28 06/01/25 08:28 06/01/25 08:28 06/01/25 08:28
I&O
05/31/25 06/01/25 06/02/25
06:59 06:59 06:59
Intake Total 2019 360 / 360
Output Total 1924 1000 / 1000
Balance 95 / 95 -640 / -640
Physical Exam
Physical Exam
HEENT: Anicteric
GI: Soft and Non Distended
Extremities: No Edema
Neuro: Non Focal
--- NOTE | 2025-06-01 12:22 | W.PN.CARDCBS ---
Today's Communication / Plan
-
Proceed to OR
Restart Eliquis postoperatively
Impression / Plan
-
PCP: Dr. Joseph Aj
Primary Print Line Operator: Dr. Bolanos
Impression:
Acute cholecystitis with choledocholithiasis
Paroxysmal atrial fibrillation on amiodarone
Mild aortic stenosis
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
COPD
CHF/ischemic cardiomyopathy with improved EF, up to 50-55%
Watchman April 2025
Orthostasis on midodrine
Hypercholesterolemia
Plan:
He seems stable from a cardiac standpoint at this time.
He can proceed to the OR with acceptable perioperative cardiac risk.
Restart Eliquis when safe from a procedural standpoint.
Continue carvedilol and amiodarone. Continue midodrine.
Progress Note - Print Line Operator
Subjective
Date of Service: June 01, 2025
74-year-old man admitted with cholecystitis on 05/29/2025, now planned for lap esperanza with cholangiography for 06/01/2025 after unsuccessful ERCP. Patient seen in consultation 05/31/2025. That note reviewed in detail and agree, unless otherwise
specified. Currently he offers no complaints. Seen in the holding area of OR.
PMH: Paroxysmal atrial fibrillation, status post cardioversion 2023, maintained on amiodarone and Eliquis, Watchman April 2025, chronic HFrEF, history of cardiomyopathy with improved EF, low EF 20% most recently 50-55% April 2025, anterior PA 2018
treated with LAD Xience stent, chronic total occlusion of the RCA, splenectomy, COPD/bronchitis, right eye melanoma, GI bleed/peptic ulcer disease
Current meds: Albuterol, azithromycin 3 days a week, amiodarone 200 mg a day, atorvastatin 40 mg a day, carvedilol 3.125 mg twice daily, pantoprazole 40 mg a day, Claritin every 48 hours, midodrine 10 mg 3 times daily, multivitamins, Daliresp,
aspirin 81 mg a day, Zosyn and electrolytes
89/45, pulse 78, respiratory rate 16, afebrile, no distress, communicative, slightly diminished breath sounds but no rales, aortic stenosis murmur, JVD okay, soft systolic murmur at apex, extremities without edema.
ECG sinus rhythm, right bundle branch block, LVH, left anterior fascicular block, no change from prior
Echo 04/2025: EF 50-55%, aortic stenosis, mild TR, EF 50-55% with moderate LVH, normal RV, dilated atria, no left atrial clot, mild mitral regurgitation,
Echo 2023: Peak/mean aortic valve gradients 28/12 mmHg, aortic valve area 1.5 cm 2
Objective
Labs:
05/31/25 06:49
05/31/25 06:49
Labs
Hgb 11.2 g/dL (13.0-18.0) L 05/31/25 06:49
Hct 35.0 % (39.0-52.0) L 05/31/25 06:49
Plt Count 340 10^3/uL (130-400) 05/31/25 06:49
PT 13.7 Sec (11.4-14.6) 05/31/25 06:49
INR 1.00 05/31/25 06:49
Sodium 138 mmol/L (135-145) 05/31/25 06:49
Potassium 3.8 mmol/L (3.5-5.1) 05/31/25 06:49
BUN 10 mg/dl (9-20) 05/31/25 06:49
Creatinine 1.0 mg/dL (0.7-1.3) 05/31/25 06:49
Glucose 75 mg/dl (70-99) 05/31/25 06:49
Vital Signs and I&O:
Vital Signs
Temp Pulse Resp BP Pulse Ox
36.5 C 75 18 89/45 94
06/01/25 07:45 06/01/25 08:03 06/01/25 08:03 06/01/25 07:45 06/01/25 08:03
Vital Signs
Temp Pulse Resp BP Pulse Ox
36.5 C 75 18 89/45 94
06/01/25 07:45 06/01/25 08:03 06/01/25 08:03 06/01/25 07:45 06/01/25 08:03
Intake & Output
05/30/25 05/31/25 06/01/25 06/02/25
07:59 07:59 07:59 07:59
Intake Total 2019 / 2019 360 / 360
Output Total 300 / 300 1925 / 1925 1000 / 1000
Balance -300 / -300 95 / 95 -640 / -640
Physical Exam
Physical Exam
See above
--- NOTE | 2025-06-01 13:49 | W.PN.HOSP.TC ---
Today's Communication/Plan
-
Assessment / Plan
Assessment / Plan
General: Well Developed, Well Nourished, No Apparent Distress, Comfortable and Obese
HEENT: NormoCephalic and Anicteric
Respiratory: Clear
Cardiac: S1/S2
GI: Soft, Non Distended and Tender (mid)
Genito-urinary: Deferred by me
Skin: Warm
Neuro: Awake and AO x 3
Psych: Calm
Choledocholithiasis c/b cholestatic pattern transaminits
IV fluids
Analgesics
Antiemetics
OR with surgery for cholecystectomy and GI seek to finish off ERCP
Atrial fibrillation, s/p Watchman
Continue amiodarone
Hold Eliquis/ASA, did not take this morning and if for procedure
COPD without evidence of acute bronchospasm
Continue Daliresp, azithromycin and Thursday, on MDI
Hyperlipidemia
Continue statin
GERD
Continue PPI
HFrEF with recovered EF, compensated
Coreg
Off Lasix per home medication list
Obesity secondary to caloric intake
Dietary and exercise modification consider outpatient bariatric surgery follow-up/GLP-1 antagonist
CAD s/p stent
Continue beta-darryn statin
Hold anticoagulant
Hypertension
Continue midodrine
Anticipated Discharge: 24 - 48 hours
Subjective/Interval History
-
Date of Service: June 01, 2025
Seen and examined. Had a ERCP yesterday however was aborted and was unable to complete stone retrieval
N.p.o. currently plan for OR with surgery and repeat ERCP while in the OR
Objective Data
-
Vital Signs:
Vital Signs
Temp Pulse Resp BP Pulse Ox
97.7 F 75 18 89/45 94
06/01/25 07:45 06/01/25 08:03 06/01/25 08:03 06/01/25 07:45 08/28/25 08:03
I&O
05/31/25 06/01/25 06/02/25
06:59 06:59 06:59
Intake Total 2019 360 / 360
Output Total 1924 1000 / 1000
Balance 95 / 95 -640 / -640
--- NOTE | 2025-06-01 14:50 | CM ---
Chart reviewed. Pt to OR today for ECRP.
Plan: Will follow for and new d/c needs
--- NOTE | 2025-06-01 15:30 | W.IMMPOSTOP ---
Surgical Immed Post Op Note
-
Primary Surgeon: Cecilia
Pre-op Diagnosis: Choledocholithiasis
Post-op Diagnosis: Chronic calculous cholecystitis
Procedure Performed: Laparoscopic cholecystectomy with intraoperative cholangiogram and rendezvous ERCP
Anesthesia Type: GETA
Specimen / Cultures: Gallbladder
Estimated Blood Loss: 40cc
Complications: None immediate
Operative Findings: Dense adhesions to left isabel-abdomen, stomach and duo bulb densely adherent to gallbladder wall, taken down with anterior wall of gallbladder attached; 4 pigmented stones spilled, retrieved; gallbladder wall severely fibrotic,
liver bed ooze, surgiflo to the fossa; cholangiogram with non obstructing large stone in distal common duct, rendezvous ERCP by GI, dictated separately, successful sweep of the duct and retrieval of sludge and stone
[2025-06-01] MEDS: ZOSYN IV (15:57)
[2025-06-01] MEDS: DILAUDID 0.5 MG IV (16:10)
[2025-06-01] MEDS: ROXICODONE 10 MG PO (20:26)
[2025-06-01] MEDS: MORPHINE SULFATE 1 MG IV (22:04)
[2025-06-02] MEDS: ROXICODONE 10 MG PO ×2 (01:25→11:38)
[2025-06-02 03:15] VITALS: BP 121/58
[2025-06-02] MEDS: ZOSYN 50 IV ×2 (04:11→10:28)
[2025-06-02] MEDS: MORPHINE SULFATE 1 MG IV (04:15)
[2025-06-02 06:00] VITALS: BMI 29.0
--- NOTE | 2025-06-02 06:36 | W.PN.GI.CBS2 ---
Today's Communication / Plan
-
Please see assessment and plan for details.
Assessment / Plan
-
1. CBD stone: Status post ERCP via rendezvous, status post sphincterotomy and stone removal, status post cholecystectomy, doing well. There are no signs of pancreatitis overnight, and exam is benign. At this point we will continue postoperative
care per surgery.
We will sign off now, please go back with any further questions.
Subjective
Subjective
Date of Service: June 02, 2025
Patient feeling well, some mild abdominal wall discomfort following surgery, though feeling much better overnight, no vomiting, no pain now, no fever or chills.
Objective
Data Reviewed
Laboratory Data:
Laboratory Results
05/31/25 06:49
05/31/25 06:49
Laboratory Results
PT 13.7 Sec (11.4-14.6) 05/31/25 06:49
INR 1.00 05/31/25 06:49
Total Bilirubin 1.0 mg/dl (0.2-1.3) 05/31/25 06:49
AST 32 U/L (17-59) 05/31/25 06:49
ALT 62 U/L (0-50) H 05/31/25 06:49
Alkaline Phosphatase 243 U/L (38-126) H 05/31/25 06:49
Lipase 49 U/L (23-300) 05/29/25 11:22
Vital Signs and I&O:
Vital Signs
Temp Pulse Resp BP Pulse Ox
97.4 F 89 18 121/58 99
06/02/25 03:15 06/02/25 03:15 06/02/25 03:15 06/02/25 03:15 06/02/25 03:15
I&O
05/31/25 06/01/25 06/02/25
06:59 06:59 06:59
Intake Total 2019 360 / 360 550 / 550
Output Total 1924 / 1924 1000 / 1000 900 / 900
Balance 95 / 95 -640 / -640 -350 / -350
Physical Exam
Physical Exam
General: NAD
Abdomen: normal bowel sounds, soft, minimal incisional tenderness, no masses or bruits, no ascites
[2025-06-02 07:35] VITALS: BP 96/47
[2025-06-02] MEDS: VENTOLIN NEBULES 2.5 MG INH (08:09)
[2025-06-02] MEDS: NON-FORMULARY ITEM 1 INH INH (08:09)
[2025-06-02] MEDS: SODIUM CHLORIDE 3% FOR INHALATION 1 VIAL INH (08:09)
[2025-06-02] MEDS: DALIRESP 500 MCG PO (08:40)
[2025-06-02] MEDS: PROTONIX 40 MG PO (08:41)
[2025-06-02] MEDS: LOW STRENGTH ASPIRIN 81 MG PO (08:41)
[2025-06-02] MEDS: PACERONE 200 MG PO (08:41)
[2025-06-02] MEDS: LIPITOR 40 MG PO (08:41)
[2025-06-02] MEDS: THERAGRAN 1 TABLET PO (08:41)
[2025-06-02] MEDS: COREG 3.125 MG PO (08:41)
[2025-06-02] MEDS: ZITHROMAX 250 MG PO (08:42)
--- NOTE | 2025-06-02 09:58 | W.PN.GS2 ---
Today's Communication / Plan
-
OK for DC
Assessment / Plan
-
74M POD1 s/p lap esperanza with cholangiogram and rendezvous ERCP
AFVSS, doing well following expected post-op course
D/w pt and .
OK for DC home.
Subjective Data
-
Date of Service: June 02, 2025
AFVSS, pain controlled, ambulating, sharmin PO, voiding
Objective Data
-
Intake and Output
06/01/25 06/02/25 06/03/25
06:59 06:59 06:59
Intake Total 360 / 360 550 / 550
Output Total 1000 / 1000 900 / 900
Balance -640 / -640 -350 / -350
Intake:
Oral fluids 360 / 360 420 / 420
IV fluids (Total) 30 / 30
normasol 30 / 30
IV piggybacks 100 / 100
Output:
Urine, Voided 1000 / 1000 900 / 900
Vital Signs
Temp Pulse Resp BP Pulse Ox
97.8 F 78 18 96/47 95
06/02/25 07:35 06/02/25 08:10 06/02/25 08:10 06/02/25 07:35 06/02/25 08:10
Lab Results
05/31/25 06:49
05/31/25 06:49
Calcium 8.8 mg/dl (8.4-10.2) 05/31/25 06:49
Total Bilirubin 1.0 mg/dl (0.2-1.3) 05/31/25 06:49
AST 32 U/L (17-59) 05/31/25 06:49
ALT 62 U/L (0-50) H 05/31/25 06:49
Alkaline Phosphatase 243 U/L (38-126) H 05/31/25 06:49
Total Protein 5.5 g/dl (6.3-8.2) L 05/31/25 06:49
Albumin 3.1 g/dl (3.5-5.0) L 05/31/25 06:49
Physical Exam
-
Gen: NAD
Abd: soft, approp ttp, incisions cdi with glue
Patient has a sow catheter: No
Patient has a central line: No
[2025-06-02 11:11] VITALS: BP 110/53
--- NOTE | 2025-06-02 11:57 | W.DCSUMMARY ---
Discharge Summary
Discharge Data
Date of Admission: 05/29/25
Date of Discharge: 06/02/25
-
Pending Results: No
Hospital Course
74 male with history of COPD, atrial fibrillation on Eliquis with Watchman, GI bleed history, GERD, hyperlipidemia, HFrEF, CAD and MANUEL
Presented with a week of abdominal pain associated nausea improved when not eating. Was found to have transaminitis with a high alkaline phosphatase therefore ultrasound of the gallbladder was obtained that showed mild wall thickening and CBD
dilated to 12 mm. Evaluated by gastroenterology recommended MRI/MRCP which demonstrated common bile duct dilatation of 12 mm along with Laura lysis with a 5 mm stone in the inferior aspect of the common bile duct. Gallbladder is mildly distended
with numerous gallstones. Surgery was consulted. Taken for a ERCP by advanced endoscopy however was unable to access the common bile duct. Therefore surgery eventually recommended go to the OR at once cleared by pulmonary and cardiology. Once in
the OR with surgery a laparoscopic cholecystostomy with intraoperative cholangiogram gram and rendezvous ERCP was completed. Tolerated procedure well. Will need outpatient GI and surgery follow-up.
Abdomen ultrasound
IMPRESSION:
Cholelithiasis; gallbladder is moderately distended and contains several stones. Mild wall thickening. No pericholecystic fluid or Chopra sign to suggest acute cholecystitis at this time.
Dilated common bile measuring 12 mm. No intraductal calculi identified, noting nonvisualization of the distal duct. Correlation with LFTs recommended.
Additional findings above.
Abdominal MRI
IMPRESSION:
The common bile duct is dilated measuring 12 mm. There is choledocholithiasis with a 5 mm stone in the inferior aspect of the common bile duct.
The gallbladder is mildly distended with numerous gallstones as well as a likely small stones in the gallbladder neck.
Cardiomegaly with a left basilar opacity.
Colonic diverticulosis. There is a duodenal diverticulum extending along the second portion the duodenum.
ERCP
IMPRESSION:
Technically unsuccessful ERCP performed with fluoroscopic assistance.
Rendezvous ERCP
FINDINGS/IMPRESSION:
1. ERCP images obtained during ongoing biliary stone removal demonstrate dilated common bile duct.
2. For further information, please see the dictated procedure note.
Seen and examined the day of discharge which was 06/02/2025. Minimally. No acute overnight events.
Urinating well has had a bowel movement passing flatus
Ready to go home. Ate a donut this morning for breakfast.
NAD
Scleral Anicteric
MMM
No JVD
CTABL
RRR, S1/S2
Soft, NT, ND, BS+
Warm, Dry
AAOx3
Calm
Discharge Plan
-
Patient Disposition: Home (Routine Discharge)
Discharge Diagnosis/Procedures: Choledocholithiasis s/p ERCP and lap esperanza cholecystectomy
Condition: Good
Diet: No restrictions
Activity: No strenuous activity
Bathing Restrictions: OK to Shower
Wound Care: Allow skin glue to flake off on its own
Activity Restrictions/Additional Instructions:
Presented with a week of abdominal pain associated nausea improved when not eating. Was found to have transaminitis with a high alkaline phosphatase therefore ultrasound of the gallbladder was obtained that showed mild wall thickening and CBD
dilated to 12 mm. Evaluated by gastroenterology recommended MRI/MRCP which demonstrated common bile duct dilatation of 12 mm along with Laura lysis with a 5 mm stone in the inferior aspect of the common bile duct. Gallbladder is mildly distended
with numerous gallstones. Surgery was consulted. Taken for a ERCP by advanced endoscopy however was unable to access the common bile duct. Therefore surgery eventually recommended go to the OR at once cleared by pulmonary and cardiology. Once in
the OR with surgery a laparoscopic cholecystostomy with intraoperative cholangiogram gram and rendezvous ERCP was completed. Tolerated procedure well. Will need outpatient GI and surgery follow-up.
Abdomen ultrasound
IMPRESSION:
Cholelithiasis; gallbladder is moderately distended and contains several stones. Mild wall thickening. No pericholecystic fluid or Chopra sign to suggest acute cholecystitis at this time.
Dilated common bile measuring 12 mm. No intraductal calculi identified, noting nonvisualization of the distal duct. Correlation with LFTs recommended.
Additional findings above.
Abdominal MRI
IMPRESSION:
The common bile duct is dilated measuring 12 mm. There is choledocholithiasis with a 5 mm stone in the inferior aspect of the common bile duct.
The gallbladder is mildly distended with numerous gallstones as well as a likely small stones in the gallbladder neck.
Cardiomegaly with a left basilar opacity.
Colonic diverticulosis. There is a duodenal diverticulum extending along the second portion the duodenum.
ERCP
IMPRESSION:
Technically unsuccessful ERCP performed with fluoroscopic assistance.
Rendezvous ERCP
FINDINGS/IMPRESSION:
1. ERCP images obtained during ongoing biliary stone removal demonstrate dilated common bile duct.
2. For further information, please see the dictated procedure note.
Instructions: Cholecystectomy (DC)
Referrals:
Joseph Aj MD [Family Provider, Family Practice]
Nagi Brooks MD [Active, Surgical] - in two to four weeks
Additional Discharge Medication Instructions: Use extra strength tylenol and ice packs for pain and swelling. If that is not enough take oxycodone 1-2 tabs.
Prescriptions:
New
oxycodone 5 mg tablet
5 - 10 mg PO Q4HPRN PRN (Reason: moderate to severe pain) Qty: 20 0RF
Continued
atorvastatin 40 MG tablet
40 mg PO DAILY
albuterol sulfate 1 PUFF HFA aerosol inhaler
1 puff inhalation R Q4HPRN PRN (Reason: SOB)
albuterol sulfate 2.5 MG/3 ML solution for nebulization
2.5 mg inhalation R BID
roflumilast [Daliresp] 500 MCG tablet
500 mcg PO DAILY
multivitamin with folic acid [Tab-A-Silvano] 1 TABLET tablet
1 tab PO DAILY
Trelegy Ellipta 100-62.5-25 mcg Blister With Device
1 inh INHALATION R DAILY
fexofenadine 180 mg Tablet
180 mg PO Q48H
amiodarone [Pacerone] 200 mg tablet
200 mg PO DAILY
acetaminophen 325 mg Tablet
650 mg PO Q6HPRN PRN (Reason: mild pain)
esomeprazole magnesium [Nexium] 20 mg Capsule,Delayed Release(Dr/Ec)
20 mg PO DAILY
midodrine 5 mg tablet
10 mg PO TID
azithromycin 250 mg Tablet
250 mg PO MOWEFR
sodium chloride 3 % Solution For Nebulization
4 ml INHALATION R DAILY
Rx Instructions:
With AM dose of albuterol
carvedilol [Coreg] 3.125 mg Tablet
3.125 mg PO BID
Eliquis 2.5 mg Tablet
2.5 mg PO BID
bismuth subsalicylate [Pepto-Bismol] 262 mg/15 mL Suspension
524 mg PO TIDPRN PRN (Reason: gerd)
Discharge Orders:
Discharge Patient (As Directed); Ordered 06/02/25
Ordered By: Brayan Van
Discharge Date and Time
Print Language: CHILEAN
--- NOTE | 2025-06-02 12:15 | CM ---
Chart Reviewed. Met with pt and . Pt is discharged. Uses O2 at home at night. Has O2 set at home portable tank which will be in car when his takes him home via car. Pt is on room air at this time. Pt seen by Respiratory therapy today
Plan: D/C to home with O2 as described
--- NOTE | 2025-06-02 13:15 | PTCARENOTE ---
Patient Pox in [address] Dr[address] Van notified. Patient will go home on O2 and use existing O2 setup. Incentive Spirometer encouraged. Teaching preformed.
--- NOTE | 2025-06-08 10:47 | OR.RPT ---
Operative Report
Operative Report
Primary Surgeon: Cecilia
Pre-op Diagnosis: Choledocholithiasis
Post-op Diagnosis: Chronic calculous cholecystitis
Procedure Performed: Laparoscopic cholecystectomy with intraoperative cholangiogram and rendezvous ERCP
Anesthesia Type: GETA
Specimen / Cultures: Gallbladder
Estimated Blood Loss: 40cc
Complications: None immediate
Operative Findings: Dense adhesions to left isabel-abdomen, stomach and duo bulb densely adherent to gallbladder wall, taken down with anterior wall of gallbladder attached; 4 pigmented stones spilled, retrieved; gallbladder wall severely fibrotic,
liver bed ooze, surgiflo to the fossa; cholangiogram with non obstructing large stone in distal common duct, rendezvous ERCP by GI, dictated separately, successful sweep of the duct and retrieval of sludge and stone
Date of surgery: 06/01/25
Indications: This 74M developed right upper quadrant/epigastric pain and on workup was found to have choledocholithiasis. ERCP was attempted but there was difficulty identifying the ampulla, rendezvous laparoscopic cholecystectomy with
intraoperative cholangiogram and ERCP was planned.
Description of procedure: The patient was placed on the operating table in the supine position. General anesthesia was induced. A time-out was completed verifying correct patient, procedure, site, positioning, and special equipment prior to
beginning this procedure. An orogastric tube was placed. The abdomen was prepped and draped in the usual sterile fashion. A stab incision was made in left upper quadrant and the Veress needle was inserted. Proper position was confirmed by aspiration
and saline meniscus test. The abdomen was insufflated with carbon dioxide to a pressure of 12 mmHg. The patient tolerated insufflation well.
An 8mm optical trocar was then inserted in the left upper quadrant. The laparoscope was inserted and the abdomen inspected. No injuries from initial trocar placement or Veress needle insertion were noted. Additional 8mm trocars were then inserted in
the following locations: above the umbilicus, right mid clavicular line at the level of the umbilicus and 6cm lateral to this on the right. The abdomen was inspected and dense adhesions to the left hemiabdomen were identified. These were left in
situ. The table was placed in the reverse Trendelenburg position with the right side up. The dome of the gallbladder was grasped with an atraumatic grasper and retracted over the dome of the liver. The duopdenum was densely adherent to the
infundibulum and was gently teased down and ultimately one area of the gallbladder wall was excised en block with the duodenum to allow for the duodenum to drop away from the gallbladder. The infundibulum was then grasped with an atraumatic grasper
and retracted toward the right lower quadrant. Dense omental adhesions to the fundus and infundibulum were taken down. This maneuver exposed Calot�s triangle. The peritoneum overlying the gallbladder infundibulum was then incised and the cystic duct
and cystic artery identified and circumferentially dissected so that a clear view of the liver was achieved through a window between the cystic duct an cystic artery. This area had wall thickening and fatty infiltration. At this time, the only two
structures going into the gallbladder were the cystic artery and cystic duct. ICG was used to visualize the cystic and common ducts and the common duct was protected.
A olive was made in the cystic duct and a cholangiogram catheter was threaded through the abdominal wall and into the duct. The catheter was secured with a 2-0 silk tie. Cholangiogram was obtained showing a filling defect in the distal common duct. A
guide wire was passed through the cholangiogram catheter and under fluoro was observed entering the duodenum. At this time Dr Gee of Gastroenterology performed the ERCP, dictated separately. The guide wire was identified in the duodenum
endoscopically and the ERCP was performed successfully. The catheter was removed.
The cystic duct was then doubly clipped and divided and the and cystic artery was controlled with bipolar and divided. Both structures were taken close to the gallbladder. The gallbladder was then dissected from its peritoneal attachments by
electrocautery. Hemostasis was assured and the gallbladder and contained stones were removed using an endoscopic retrieval bag placed through the umbilical port. The gallbladder was passed off the table as a specimen. The gallbladder fossa was
closely inspected. There was slight blood oozing from this area and surgiflo was applied. RThe area as observed again and hemostasis was assured. The umbilical trocar site was closed at the fascial level laparoscopically with 2-0 PDS. Secondary
trocars were removed under direct vision and noted to be hemostatic. The laparoscope was withdrawn and the umbilical trocar removed. The abdomen was allowed to collapse. The skin was closed with subcuticular sutures of 4-0 monocryl and topical skin
adhesive. The orogastric tube was removed.
The patient tolerated the procedure well and was taken to the postanesthesia care unit in stable condition.
== END 2025-06-02 16:29 | disposition home or self-care (01) | DRG 418 ==
LOC: 4 WEST ACU 16:21
PROVIDERS: Emergency Medicine; Internal Medicine Gastroenterology; Nurse Practitioner Adult Health; ADMITTING PHYSICIAN Hospitalist; CONSULT PHYSICIAN Internal Medicine; CONSULT PHYSICIAN Internal Medicine Cardiovascular Disease; CONSULT PHYSICIAN Specialist; EMERGENCY PHYSICIAN Emergency Medicine; FAMILY PHYSICIAN Family Medicine; OTHER PHYSICIAN Surgery
PROC: 0FJB8ZZ Inspection of Hepatobiliary Duct, Via Natural or Artificial Opening Endoscopic (ICD-10-PCS; 2025-05-31)
PROC: BF40ZZZ Ultrasonography of Bile Ducts (ICD-10-PCS; 2025-05-31)
PROC: 0FT44ZZ Resection of Gallbladder, Percutaneous Endoscopic Approach (ICD-10-PCS; 2025-06-01)
PROC: 0FC98ZZ Extirpation of Matter from Common Bile Duct, Via Natural or Artificial Opening Endoscopic (ICD-10-PCS; 2025-06-01)
PROC: BF131ZZ Fluoroscopy of Gallbladder and Bile Ducts using Low Osmolar Contrast (ICD-10-PCS; 2025-06-01)
DX: K80.64 Calculus of gallbladder and bile duct with chronic cholecystitis without obstruction (principal); I50.22 Chronic systolic (congestive) heart failure; J44.89 Other specified chronic obstructive pulmonary disease; K21.9 Gastro-esophageal reflux disease without esophagitis; E78.00 Pure hypercholesterolemia, unspecified; I25.10 Atherosclerotic heart disease of native coronary artery without angina pectoris; I48.0 Paroxysmal atrial fibrillation; D50.9 Iron deficiency anemia, unspecified; E66.09 Other obesity due to excess calories; M19.90 Unspecified osteoarthritis, unspecified site; I11.0 Hypertensive heart disease with heart failure; G47.30 Sleep apnea, unspecified; R91.1 Solitary pulmonary nodule; K57.10 Diverticulosis of small intestine without perforation or abscess without bleeding; I95.1 Orthostatic hypotension; I25.5 Ischemic cardiomyopathy; Z68.29 Body mass index [BMI] 29.0-29.9, adult; I25.2 Old myocardial infarction; Z90.81 Acquired absence of spleen; Z87.891 Personal history of nicotine dependence; Z95.818 Presence of other cardiac implants and grafts; Z95.5 Presence of coronary angioplasty implant and graft; Z86.16 Personal history of COVID-19; Z86.73 Personal history of transient ischemic attack (TIA), and cerebral infarction without residual deficits; Z87.11 Personal history of peptic ulcer disease; Z79.01 Long term (current) use of anticoagulants
CPT/HCPCS: 74183; 74330; 76000; 76700; 80053; 83690; 85025; 85027; 85610; 86850; 86900; 86901; 88304; 93005; 94640; 96374; 99285; A4300; A9575; C1726; C1769

== ENCOUNTER 2025-07-25 06:47 | Day surgery (SDC) | payer MEDICARE, OTHER, SELFPAY | END 2025-07-25 10:30 | disposition home or self-care (01) | LOC: CATH 06:47 | PROVIDERS: ATTENDING PHYSICIAN Nuclear Medicine Nuclear Cardiology; FAMILY PHYSICIAN Family Medicine | DX: Z45.09 Encounter for adjustment and management of other cardiac device (principal); I08.3 Combined rheumatic disorders of mitral, aortic and tricuspid valves; I70.0 Atherosclerosis of aorta; Z79.82 Long term (current) use of aspirin; Z95.818 Presence of other cardiac implants and grafts; I95.89 Other hypotension; I11.0 Hypertensive heart disease with heart failure; I50.22 Chronic systolic (congestive) heart failure; I48.0 Paroxysmal atrial fibrillation; I25.10 Atherosclerotic heart disease of native coronary artery without angina pectoris; I47.29 Other ventricular tachycardia; J44.9 Chronic obstructive pulmonary disease, unspecified; Z79.899 Other long term (current) drug therapy | CPT/HCPCS: 93312; 93320; 93325 ==

== ENCOUNTER → 2025-08-08 09:14 | Outpatient (REF) | payer MEDICARE, OTHER, SELFPAY | LOC: HWRCS 09:14 | PROVIDERS: ATTENDING PHYSICIAN Physician Assistant Medical; FAMILY PHYSICIAN Family Medicine | DX: I42.9 Cardiomyopathy, unspecified (principal); I47.29 Other ventricular tachycardia | CPT/HCPCS: 93306 ==

== ENCOUNTER → 2025-09-05 08:43 | Outpatient (REF) | payer MEDICARE, OTHER, SELFPAY | LOC: HWRAD 08:43 | PROVIDERS: ATTENDING PHYSICIAN Internal Medicine Critical Care Medicine; FAMILY PHYSICIAN Family Medicine | DX: R91.1 Solitary pulmonary nodule (principal) | CPT/HCPCS: 71250 ==

== ENCOUNTER 2025-10-02 06:20 | Day surgery (SDC) | payer MEDICARE, OTHER, SELFPAY ==
[2025-09-12 13:35] VITALS: BMI 26.4
[2025-10-02] VITALS (10 sets, daily range): BP systolic 104–144; BP diastolic 52–83; BMI 26.7
[2025-10-02] MEDS: NSS 500 IV (06:48)
== END 2025-10-02 11:15 | disposition home or self-care (01) ==
LOC: SDS 06:20
PROVIDERS: ATTENDING PHYSICIAN Internal Medicine Critical Care Medicine
DX: R91.1 Solitary pulmonary nodule (principal); R59.1 Generalized enlarged lymph nodes; R09.89 Other specified symptoms and signs involving the circulatory and respiratory systems
CPT/HCPCS: 31629; 31627; 31623; 31653; 31628; 31624; 31654; 71045; 76000; 87015; 87070; 87102; 87116; 87205; 88112; 88173; 88305; 88312; 88333; 88341; 88342; C1887